=== PATIENT | female | born 1945 | race Caucasian/White ===

== ENCOUNTER → 2016-04-05 | Outpatient (CLI) | payer OTHER, BC ==
[~2016-04-05] MED LIST: ACYC1CAP8 PO; ALPR-411 PO; BACL10TA PO; CALC500C70 PO; CHOL20007 PO; CHOL20009 PO; CLBPO15 TOP; COLE1TAB5 PO; CYAN100020 PO; DETROL PO; DICY10CA55 PO; DPKSR250 PO; ESCI1TAB10 PO; FERR1TAB23 PO; FEXO5TAB2 PO; FLUO20CA35 PO; GABA800T PO; INSUINJ14 SC; INSUINJ4 SC; LISI5TAB3 PO; LOSA50TA6 PO; MYR25 PO; OMEP20CA9 PO; OXYB3.9D TD; POLY335019 PO; POTA10CA28 PO; PROBCAP PO; PROP20TA67 PO; PSYL0.524 PO; TAMO20TA47 PO; TRAZ50TA35 PO
--- NOTE | 2016-04-05 13:13 | MAMMOGRAPHY REPORT ---
UNILATERAL LEFT DIGITAL DIAGNOSTIC MAMMOGRAM TOMOSYNTHESIS WITH CAD AND TARGETED LEFT ULTRASOUND: 04/05/2016 CLINICAL HISTORY: 70-year-old woman whose doctor felt a lump in the left breast on physical exam. S he presents for diagnostic mammography and ultrasound. TECHNIQUE: Left breast tomosynthesis in addition to standard 2D mammography was performed. Current ginger barker was also evaluated with a Computer Aided Detection (CAD) system. COMPARISON: Comparison is made to exams dated: 12/29/2015 mammogram, 12/17/2013 mammogram, 12/24/19 15 mammogram, 12/11/2012 mammogram, 12/06/2011 mammogram, and 11/30/2010 mammogram - [facility]. BREAST COMPOSITION: There are scattered areas of fibroglandular density in the left breast. FINDINGS: A triangular skin palpable marker overlies the upper outer anterior left breast, denoting the palpable lump identified by the patient's physician. In the area of concern, there is a dense 2 .8 x 2.7 x 2.8 cm irregular mass with indistinct margins. There are associated pleomorphic microcal cifications. No definite focal skin thickening or evidence of nipple retraction. There are scatter ed and grouped benign-appearing calcifications elsewhere within the left breast. There was an a are a of focal asymmetry in a similar location in the upper outer anterior left breast on prior mammogra ms, and also another focal asymmetry in the upper outer posterior left breast. However, this area i s increasingly masslike and microcalcifications are new comparing to 2013. Targeted ultrasound was performed in the area of palpable lump identified by the patient's physician . In the 2:00 left breast, 2 cm from the nipple, there is an irregular and angular, taller than wid e hypoechoic solid vascular mass measuring approximately 20.8 x 19.3 x 23.0 mm. This correlates wit h the palpable finding and also with the mammographic mass. This is suspicious for malignancy and d efinitive characterization with tissue sampling is recommended. Additional ultrasound was performed in the left axilla. Several morphologically normal lymph nodes with thin cortices and prominent ec hogenic fatty richardson are identified. No suspicious lymphadenopathy is seen. IMPRESSION: ACR BI-RADS CATEGORY 5: HIGHLY SUGGESTIVE OF MALIGNANCY, TARGETED ULTRASOUND ACR BI-RAD S CATEGORY 5: HIGHLY SUGGESTIVE OF MALIGNANCY 1. Ultrasound guided core biopsy is recommended for a suspicious irregular approximately 2.5 cm hyp oechoic solid mass in the 2:00 left breast, which was palpated by the patient's physician. 2. Mammographically, there are associated pleomorphic microcalcifications within the mass. No othe r suspicious mass, architectural distortion or new suspicious clustered calcifications are seen in t he left breast. 3. No targeted sonographic evidence of suspicious left axillary lymphadenopathy. These results and recommendations were discussed with the patient at the time of the exam. She tenta tively scheduled the biopsy prior to leaving our department. Approximately 10% of breast cancers are not detected with mammography. A negative mammographic repor t should not delay biopsy if a clinically suggestive mass is present. Mica Zacarias M.D. ay/:04/05/2016 12:06:46 Wholesale Parts Salesperson: Kvng LOCK(R)(M), letter sent: Abnormal 4/5 BI-RADS Code: ACR BI-RADS Category 5: Highly Suggestive Of Malignancy Ultrasound BI-RADS: ACR BI-RA DS Category 5: Highly Suggestive Of Malignancy
== END | disposition home or self-care (01) ==
LOC: C.MAMM 11:17
PROVIDERS: ATTEND Obstetrics & Gynecology Gynecologic Oncology
DX: N63 Unspecified lump in breast (principal); R92.0 Mammographic microcalcification found on diagnostic imaging of breast

== ENCOUNTER → 2016-04-18 | Outpatient (CLI) | payer OTHER, BC ==
--- NOTE | 2016-04-18 13:08 | Discharge Instructions ---
Discharge Instructions Procedure Procedure Date: Apr 18, 2016. Reason for visit: Left Mass. Discharge Discharge Date: Apr 18, 2016. Discharge Diagnosis: status post breast biopsy Instructions Activity Recommendations: Additional Limitations (see below) Return to School/Work: no limitations Recommended Home Diet: No Limitations Provider Instructions: ACTIVITY RECOMMENDATIONS: * No lifting, pushing, pulling or exercising the affected side for three days. RETURN TO SCHOOL/WORK: * You may return to work/school after the procedure, but do not perform any strenuous activities for 24 to 48 hours. MEDICATIONS: * Tylenol (two 325 mg) every four to six hours if needed for mild pain (if not allergic to Tylenol). DIET: * Resume previous diet. SPECIAL CARE INSTRUCTIONS: * Keep biopsy site dry for 24 hours. May shower after 24 hours, but do not soak (bathe) incision. * May remove Tegaderm (plastic patch) tomorrow AFTER showering. * Leave the steri-strips on for one week. Allow the steri-strips to fall off by themselves. If not off after one week, you may remove them. You may place a Bandaid crosswise over the strips, if desired. * Apply ice 10 minutes on and 10 minutes off as needed. * Wear a bra at bedtime to sleep more comfortably for 2-3 days. * Your referring physician should have the results after approximately 5 to 7 business days. * Call for unusual bleeding, fever, drainage, etc or if you have any questions call during normal business hours or after hours call Dr Hernandez, . FOLLOW UP VISIT: Follow-up with Referring Physician as scheduled. Allergies Coded Allergies: Adhesives (Verified Allergy, Unknown, RED RASH, 02/10/13) Aminoglycosides (Verified Allergy, Unknown, RED RASH, 02/10/13) Bacitracin (Verified Allergy, Unknown, RED RASH, 02/10/13) Levofloxacin (Verified Allergy, Unknown, CHEST PAIN, 09/22/14) TABLETS Lisinopril (Unverified Allergy, Unknown, COUGH, 09/22/14) Neomycin (Verified Allergy, Unknown, RED RASH, 02/10/13) Polymyxin B (Verified Allergy, Unknown, RED RASH, 02/10/13) Quinapril (Verified Adverse Reaction, Mild, COUGH, 02/10/13) Elvis Bates Recommendations: Call your doctor if: * Temperature above 101 degrees * Pain not relieved by pain medicine ordered * There is increased drainage or redness from any incision * You have any unanswered questions or concerns. Your Doctors Instructions noted above were prepared by provider Dona Hernandez. Patient Signature Section: Patient Instructions Signature Page Triny Young Patient (or Guardian) Signature/Date: I have read and understand the instructions given to me by my caregivers. Caregiver/RN/Doctor Signature/Date: The above-named patient and/or guardian has received patient instructions on this date. + Original Patient Signature Page (only) stays with chart. Please make copy for patient.
--- NOTE | 2016-04-18 16:45 | MAMMOGRAPHY REPORT ---
UNILATERAL LEFT DIGITAL DIAGNOSTIC MAMMOGRAM: 04/18/2016 CLINICAL HISTORY: Status post ultrasound guided biopsy of the left 2 o'clock breast mass. TECHNIQUE: Postprocedural left CC and ML views were obtained. COMPARISON: Comparison is made to exams dated: 04/05/2016 mammogram, 12/29/2015 mammogram, 12/17/2013 mammogram, 12/23/2014 mammogram, 12/11/2012 mammogram, and 12/06/2011 mammogram - [facility]. BREAST COMPOSITION: There are scattered areas of fibroglandular density in the left breast. FINDINGS: A new biopsy marker clip is seen within the biopsied left 2:00 breast mass. No significa nt postbiopsy hematoma is seen. IMPRESSION: POST PROCEDURE IMAGING FOR MARKER PLACEMENT New biopsy marker clip status post ultrasound-guided biopsy of the left 2:00 breast mass. Pathology results are pending. Approximately 10% of breast cancers are not detected with mammography. A negative mammographic repor t should not delay biopsy if a clinically suggestive mass is present. Dona Hernandez M.D. ah/:04/18/2016 13:27:23 Cyanide Pot Tender: Kvng LOCK(R)(M), [facility] BI-RADS Code: Post Procedure Imaging For Marker Placement
--- NOTE | 2016-04-26 09:36 | MAMMOGRAPHY REPORT ---
ULTRASOUND GUIDED BIOPSY LEFT BREAST: 04/18/2016 CLINICAL HISTORY: Suspicious left 2:00 breast mass. PATIENT CONSENT: The procedure, risks and benefits were discussed with the patient and informed writ ten consent was obtained. A timeout was performed immediately prior to the procedure. PROCEDURE DESCRIPTION: With ultrasound guidance, aseptic technique, and lidocaine as the local anest hetic (1% lidocaine to anesthetize the skin and 1% lidocaine with epinephrine to anesthetize the igor per tissues), the mass of concern in the left 2 o'clock breast was sampled 4 times with a 14-gauge A chieve biopsy needle. Immediately thereafter, with ultrasound guidance, aseptic technique, and lido gypsy as the local anesthetic, a metallic localizer clip was placed centrally in the mass. Direct p ressure was applied to the site immediately post procedure and hemostasis was achieved. Postprocedu re unilateral mammograms were performed to confirm placement of the clip in the expected location of the breast mass. The patient tolerated the procedure without complication. She was given wound ca re instructions. The specimens were sent to pathology for analysis. COMPARISON: Comparison is made to exams dated: 04/05/2016 ultrasound, 12/29/2015 mammogram, 04/05/2016 mammogram, 12/23/2014 mammogram, 12/17/2013 mammogram, and 12/11/2012 mammogram - [facility]. IMPRESSION: ULTRASOUND GUIDED BIOPSY Ultrasound guided core needle biopsy of the suspicious left 2:00 breast mass, with clip placement. The patient will receive pathology results from her referring physician. Dona Hernandez M.D. ah/:04/18/2016 13:10:04 Air Quality Manager: Kvng LOCK(Lynette)(M), [facility]
== END | disposition home or self-care (01) ==
LOC: C.MAMM 12:29
PROVIDERS: ATTEND Obstetrics & Gynecology Gynecologic Oncology
DX: N63 Unspecified lump in breast (principal); C50.912 Malignant neoplasm of unspecified site of left female breast

== ENCOUNTER → 2016-05-22 | Day surgery (SDC) | payer OTHER, BC ==
[2016-05-15 12:12] VITALS: BMI 54.0
--- NOTE | 2016-05-15 12:58 | PAT Medication Instructions ---
Service Date May 15, 2016. Current Home Medication List Acyclovir (Zovirax), 200 MG PO UD PRN for COLD SORES Alprazolam (Xanax), 0.25 MG PO HS PRN for SLEEP/ANXIETY Cholecalciferol (Vitamin D3), 1 TAB PO QPM Clobetasol Propionate (Clobetasol Propionate), 1 APPLN TOP PRN Cyanocobalamin (Vitamin B12), 3,000 MCG PO QAM Dicyclomine Hcl (Bentyl), 10 MG PO QAM Ferrous Sulfate (Iron), 325 MG PO QAM Fexofenadine-Pseudoephedrine (Emmy-D 12 Hour Allergy), 1 TAB PO BID PRN for PRN Fluoxetine (Prozac), 20 MG PO BID Gabapentin (Neurontin), 800 MG PO QAM Insulin Aspart (Novolog Penfill), 25 UNITS SC TIDM Insulin Glargine (Lantus Solostar Pen), 65 UNITS SC HS Losartan Potassium (Cozaar), 50 MG PO BID Mirabegron (Myrbetriq Er), 25 MG PO QAM Omeprazole (Prilosec), 20 MG PO BID Polyethylene Glycol 3350 (Miralax), 17 GM PO Q2D Probiotic Product (ipDatatel), 1 CAP PO QAM Psyllium (Metamucil), 1 DOSE PO Q2D Trazodone Hcl (Trazodone), 50 MG PO HS [Detrol], 1 TAB PO HS Medication Instructions For Your Scheduled Surgery Acyclovir (Zovirax), 200 MG PO UD PRN for COLD SORES (not taking currently) - Hold the following medications 24 hours prior to surgery: Losartan Potassium (Cozaar), 50 MG PO BID (last dose will be in the morning on 05/21/16) Clobetasol Propionate (Clobetasol Propionate), 1 APPLN TOP PRN - Hold the following medications the morning of surgery: Probiotic Product (ipDatatel), 1 CAP PO QAM Psyllium (Metamucil), 1 DOSE PO Q2D Polyethylene Glycol 3350 (Miralax), 17 GM PO Q2D Mirabegron (Myrbetriq Er), 25 MG PO QAM Insulin Aspart (Novolog Penfill), 25 UNITS SC TIDM Fexofenadine-Pseudoephedrine (Emmy-D 12 Hour Allergy), 1 TAB PO BID PRN for PRN Ferrous Sulfate (Iron), 325 MG PO QAM Dicyclomine Hcl (Bentyl), 10 MG PO QAM Cyanocobalamin (Vitamin B12), 3,000 MCG PO QAM - Take the following medications the morning of surgery with a sip of water: Omeprazole (Prilosec), 20 MG PO BID Gabapentin (Neurontin), 800 MG PO QAM Fluoxetine (Prozac), 20 MG PO BID - Take the following medications as scheduled the night before surgery: Trazodone Hcl (Trazodone), 50 MG PO HS Detrol 1 TAB PO HS Omeprazole (Prilosec), 20 MG PO BID Insulin Glargine (Lantus Solostar Pen), 65 UNITS SC HS Fluoxetine (Prozac), 20 MG PO BID Fexofenadine-Pseudoephedrine (Emmy-D 12 Hour Allergy), 1 TAB PO BID PRN for PRN Alprazolam (Xanax), 0.25 MG PO HS PRN for SLEEP/ANXIETY Cholecalciferol (Vitamin D3), 1 TAB PO QPM If you have any questions please call us at [phone] or [phone] ( Es) or [phone]
[2016-05-15 14:23] LABS: BASO % 0.6 %; BASO ABS # 0.02 K/uL (0-0.2); COMPLETE YES; HEMATOCRIT 37.6 % (37-47); IG% 0.3 %; LYMPH % 30.1 %; LYMPH ABS # 1.09 K/uL (1.2-3.4); MEAN CELL VOLUME 91.5 fL (80-100); MEAN CORPUSCULAR HEMOGLOBIN 30.2 pg (25-34); MEAN PLATELET VOLUME 11.9 fL (7.4-10.4); MONO % 10.8 %; NEUT % 55.2 %; PLATELET COUNT 71 K/uL (130-400); PLT ESTIMATE DECREASED; RED BLOOD COUNT 4.11 M/uL (4.2-5.4); WHITE BLOOD COUNT 3.62 K/uL (4.8-10.8)
[~2016-05-22] VITALS: Ht 157.5 cm; Wt 133.2 kg
[~2016-05-22] MED LIST changes: +ATROPINE SULFATE 0.1 MG/ML 5ML SYR IV PRN; -BACL10TA PO; -CHOL20009 PO; -COLE1TAB5 PO; +DEXAMETHASONE SOD INJ 4 MG/ML VIAL ONE; -DPKSR250 PO; +FENTANYL CITRATE INJ 50 MCG/1 ML 2 ML VIAL IV PRN; +FENTANYL CITRATE INJ 50 MCG/1 ML 2 ML VIAL ONE; +GLYCOPYRROLATE INJ 0.2 MG/ML VIAL ONE; +ISOSULFAN BLUE 10 MG/ML VIAL 5 ML ONE; +KETOROLAC TROMETHAMINE 30 MG/ML VIAL IV. PRN; +LABETALOL HCL IV 5 MG/ML 20ML IV PRN; +LACTATED RINGER'S 1000ML 1,000 ML IV SCH; +LIDOCAINE HCL 1% 20 ML VIAL ONE; +LIDOCAINE HCL 2% 2 ML VIAL (20MG/ML) ONE; -LISI5TAB3 PO; +MIDAZOLAM HCL 1 MG/ML 2ML VIAL ONE; +MoRPHine SULFATE 4 MG/ML 1 ML CARP\\VIAL IV PRN; +NEOSTIGMINE METHYLSULFATE 5 MG/5 ML SYR ONE; +ONDANSETRON INJ 2 MG/ML 2 ML VIAL IV PRN; +ONDANSETRON INJ 2 MG/ML 2 ML VIAL ONE; +OXYCODONE/ACETAMINOPHEN 5-325 TAB PO PRN; -POTA10CA28 PO; +PROPOFOL IV EMULSION 10 MG/ML 20 ML VIAL IV ONE; +ROCURONIUM BROMIDE 10 MG/ML 5 ML VIAL ONE; +SODIUM CHLORIDE 0.9% 1000ML 1,000 ML IV SCH
--- NOTE | 2016-05-22 09:06 | History & Physical Bridge Note ---
H&P Re-Evaluation Bridge Note: I have examined the patient, reviewed the History & Physical and in the interval since the performance of the History & Physical I have noted the following changes of clinical significance: No changes noted
[2016-05-22 09:17] VITALS: BP 163/74; PULSE 90; TEMP 36.8; O2SAT 94; Ht 157.5 cm; Wt 133.2 kg
[2016-05-22 09:43] LABS: HEMATOCRIT 36.6 % (37-47); MEAN CELL VOLUME 92.7 fL (80-100); MEAN CORPUSCULAR HEMOGLOBIN 30.4 pg (25-34); RED BLOOD COUNT 3.95 M/uL (4.2-5.4); WHITE BLOOD COUNT 3.24 K/uL (4.8-10.8)
[2016-05-22 09:52] LABS: MEAN CORPUSCULAR HGB CONC 32.8 g/dl (32-36); PLATELET COUNT 60 K/uL (130-400)
--- NOTE | 2016-05-22 10:44 | DIAGNOSTIC IMAGING REPORT ---
Lymphoscintigraphy breast LYMPH SENTINEL NODE ID CLINICAL HISTORY: L BREAST CA breast carcinoma TECHNIQUE: Following description of the procedure, a sequential administration in a periareolar distribution was performed with a total of 0.5 mCi of technetium 99m lymphocele. COMPARISON STUDY: None FINDINGS: Successful periareolar injections IMPRESSION: Successful periareolar injections Electronically signed by: Srinivas Mccollum M.D. 05/22/2016 10:42 AM Dictated Date/Time: 05/22/2016 10:41 AM
[2016-05-22 10:46] LABS: BASO % 0.6 %; BASO ABS # 0.02 K/uL (0-0.2); COMPLETE YES; EOS % 2.5 %; LYMPH % 33.3 %; LYMPH ABS # 1.08 K/uL (1.2-3.4); MEAN PLATELET VOLUME 10.7 fL (7.4-10.4); MONO % 11.4 %; NEUT % 52.2 %
--- NOTE | 2016-05-22 13:54 | MAMMOGRAPHY REPORT ---
SPECIMEN: 05/22/2016 CLINICAL HISTORY: Lumpectomy specimen. Please refer to the report from left breast ultrasound-guided needle localization performed at the s flor time for full detail. IMPRESSION: SPECIMEN Please refer to the report from left breast ultrasound-guided needle localization performed at the s flor time for full detail. Mica Zacarias M.D. ay/:05/22/2016 10:46:42 Route Driver Coin Machines: Kvng LOCK(Lynette)(M), [facility]
--- NOTE | 2016-05-22 13:56 | MAMMOGRAPHY REPORT ---
UNILATERAL LEFT DIGITAL DIAGNOSTIC MAMMOGRAM TOMOSYNTHESIS: 05/22/2016 CLINICAL HISTORY: Biopsy-proven left breast cancer. Patient presents for preoperative needle and wi re localization. Please refer to report from left breast ultrasound-guided needle localization performed at the same time for full detail. IMPRESSION: Please refer to report from left breast ultrasound-guided needle localization performed at the same time for full detail. Approximately 10% of breast cancers are not detected with mammography. A negative mammographic repor t should not delay biopsy if a clinically suggestive mass is present. Mica Zacarias M.D. ay/:05/22/2016 12:29:36 Attending Technologist: Dr. Mica Zacarias, [facility] Medical Delivery Technician: Kvng Gold RT(R)(M), [facility] BI-RADS Code: n/a
--- NOTE | 2016-05-22 14:09 | [facility] Post Operative Brief Note ---
Immediate Operative Summary Operative Date May 22, 2016. Pre-Operative Diagnosis left breast cancer clinical stage T2N0M0 Post-Operative Diagnosis left breast cancer clinical stage T2N0M0 Procedure(s) Performed Needle localized left breast lumpectomy with left axillary sentinel lymph node biopsy Surgeon Dr Srinivas Ramon Booster Plant Operator Surgeon(s) Galilea Jarvis PA-C Estimated Blood Loss 15ML Findings See dictation Specimens C: left breast lumpectomy (white stitch-lateral, black stitch-anterior, blue stitch-inferior) Drains None Anesthesia General Complication(s) None Disposition Recovery Room / PACU
--- NOTE | 2016-05-22 14:13 | Discharge Instructions ---
Discharge Instructions Date of Service May 22, 2016. Admission Reason for Admission: Left Breast Ca--Hosp Loc--Lymph To Follow Discharge Discharge Diagnosis / Problem: Same Discharge Goals Goal(s): Improve disease control Activity Recommendations Activity Limitations: per Instructions/Follow-up section Lifting Limitations: no more than 10 pounds (with left arm) . Instructions / Follow-Up Instructions / Follow-Up MEDICATIONS: Resume previous medications unless instructed otherwise by your surgeon. * Percocet 5/325 mg one tablet every 4 hours as needed for pain. * Ibuprofen 600 mgm every 6 hours as needed for pain. SPECIAL CARE INSTRUCTIONS: * Wear bra day and night until seen in office. * Remove dressing on breast on . May then shower. * Let water run over steri strips and pat dry. * Leave steri strips on until seen in office. * Call the surgeon's office with any questions or concerns - (ex. temperature higher than 101 degrees F, excessive bleeding or pain). FOLLOW UP VISIT: If not already scheduled, please call the office for a follow-up appointment for next week at . Current Hospital Diet Patient's current hospital diet: Discharge Diet Recommended Diet: Diabetes Type 2 Diet Procedures Procedures Performed: Needle localized left breast lumpectomy with left axillary sentinel lymph node biopsy Pending Studies Studies pending at discharge: yes List of pending studies: Pathology Medical Emergencies . Who to Call and When: Medical Emergencies: If at any time you feel your situation is an emergency, please call 911 immediately. . Non-Emergent Contact Non-Emergency issues call your: Primary Care Provider, Surgeon Call Non-Emergent contact if: your pain is worsening, wound has increased redness, wound has increased pain . "Provider Documentation" section prepared by Srinivas Ramon. VTE Core Measure Inpt VTE Proph given/why not?: Treatment not indicated
--- NOTE | 2016-05-22 14:39 | Anesthesiology Progress Note ---
Anesthesia Post Op Note Date & Time May 22, 2016 at 14:39 Vital Signs Pain Intensity: 0 Vital Signs Past 12 Hours Date Time Temp Pulse Resp B/P Pulse Ox O2 Delivery O2 Flow Rate FiO2 05/22/16 14:30 92 18 133/60 94 Nasal Cannula 3 05/22/16 14:25 36.7 93 16 134/65 95 Nasal Cannula 3 05/22/16 14:15 94 16 132/65 97 Mask 5 05/22/16 14:05 94 16 134/61 98 Mask 10 05/22/16 13:55 36.8 99 16 163/74 97 Mask 10 05/22/16 09:17 36.8 90 24 163/74 94 Room Air Notes Mental Status: alert / awake / arousable, participated in evaluation Pt Amnestic to Procedure: Yes Nausea / Vomiting: adequately controlled Pain: adequately controlled Airway Patency, RR, SpO2: stable & adequate BP & HR: stable & adequate Hydration State: stable & adequate Anesthetic Complications: no major complications apparent
[2016-05-22 14:40] VITALS: BP 138/64; PULSE 94; TEMP 37.2; O2SAT 94
[2016-05-22 15:10] VITALS: BP 143/69; PULSE 90; O2SAT 92
[2016-05-22 15:40] VITALS: BP 118/56; PULSE 86; TEMP 37; O2SAT 94
--- NOTE | 2016-05-22 16:38 | MAMMOGRAPHY REPORT ---
NEEDLE LOCALIZATION LEFT BREAST: 05/22/2016 CLINICAL HISTORY: 70-year-old woman with biopsy-proven left breast cancer. She presents for preoper ative needle and wire localization. COMPARISON: Comparison is made to exams dated: 04/18/2016 mammogram, 04/05/2016 mammogram, 12/29/2015 mammogram - [facility], 11/14/2007, 11/17/2008, and 11/24/2009 mammogram - [facility]. PATIENT CONSENT: The risks of the procedure were explained to the patient and informed consent was o btained. The patient denied allergy to lidocaine and also denied eating or drinking anything this m orning that would preclude anesthesia. A timeout was performed in the left breast was agreed as the site for preoperative localization. Th en repeat targeted ultrasound was performed in the 2:00 left breast to reevaluate the biopsy proven cancer. The irregular hypoechoic solid mass is again seen and the ribbon-shaped metallic biopsy mar ker is seen within, which is the target for preoperative localization. The skin of the left breast was cleansed with Betadine. 1% buffered lidocaine without epinephrine was administered as local ane sthesia. A 7.5 cm Michel II needle and wire combination was inserted into the breast via lateral a pproach. Once the needle traversed the mass the wire was locked in place and postprocedure left CC and ML 2-D digital and tomosynthesis images were obtained. The postprocedure images demonstrate the localizing needle and wire distal to the intended mass and biopsy marker clip. Therefore using ultrasound guidance the needle was repositioned and withdrawn s lightly and then locked in place again. A final postprocedure left CC image was obtained that demon strates the heel of the ranulfo immediately adjacent to the ribbon-shaped biopsy marker clip with the t ip of the needle at the distal/medial margin of the mass. This position was felt to be satisfactory and the patient was transferred to the operating room in satisfactory condition. The procedure inc luding needle length and approach were discussed with the operating surgeon prior to surgery. The lumpectomy specimen demonstrates a portion of the localizing needle and wire combination. Also identified is a central mass with indistinct and spiculated borders as well as clustered pleomorphic microcalcification. These findings are compatible with successful preoperative localization and mcpherson bsequent surgical excision. Final pathology is pending. IMPRESSION: NEEDLE LOCALIZATION Status post preoperative needle and wire localization for biopsy-proven left breast cancer in the 2: 00 axis. The imaged specimen includes the intended abnormalities. Final pathology is pending. Mica Zacarias M.D. ay/:05/22/2016 15:22:17 Oil Seal Assembler: Kvng LOCK(Lynette)([place]), [facility]
--- NOTE | 2016-05-22 18:38 | OPERATIVE REPORT ---
DATE OF OPERATION: 05/22/2016 PREOPERATIVE DIAGNOSIS: Carcinoma of the left breast. POSTOPERATIVE DIAGNOSIS: Same. PROCEDURE: Needle guided lumpectomy of the left breast with left axillary sentinel lymph node biopsy. SURGEON: Srinivas Ramon MD CONCRETE ENGINEERING TECHNICIAN: Mone Paula PA-C FINDINGS: The patient had 1 sentinel lymph node that was identified. There was 1 nonsentinel lymph node also identified. The sentinel lymph node had an en vivo count of 8 and ex vivo count of 35. Baseline counts were no higher than 3 with consistency. The needle was placed through the center of the lesion. The lesion was never seen. There appeared to be good margins both grossly and radiologically on tissue mammogram. The specimen was marked with a white stitch on the lateral side, a black stitch anteriorly and a blue stitch inferiorly. TECHNIQUE: The patient was initially taken to radiology where the needle localization was performed. A nuclear medicine then injected the radio nucleotide. She was then brought to the operating room and placed on the operating table, given a general anesthetic. The skin in the periareolar area was cleansed with alcohol and then intradermal injection of blue dye was placed. The area was then prepped and draped in the usual sterile fashion. The external counts were only 8 but they were consistent in one area at the inferior aspect of the hairline. Incision was then made under the axilla in that area, carried down through the subcutaneous tissue to the external fascia which was opened and the Neoprobe was then used to identify the sentinel node. In dissecting deep in order to get to that lymph node, the nonsentinel lymph node was identified. It was using the LigaSure. Once I was able to identify the sentinel lymph node, it was from the surrounding tissues using the Neoprobe. External counts were 35. The Neoprobe was replaced and there were no consistent baseline counts higher than 3. There was some bleeding from an exposed vessel that was clamped and ligated with 3-0 Vicryl ties. There was no further bleeding. The wound was irrigated and irrigation removed. The deep tissues were approximated using interrupted 2-0 Vicryl. The superficial subcutaneous tissue was closed with running 3-0 Vicryl and skin was closed with 4-0 Monocryl in a running subcuticular fashion. Attention was then turned to the lumpectomy. The course of the needle and the tip of the needle was marked on the skin. The skin incision was then marked. Skin incision was made, carried down through the subcutaneous tissue. Inferomedial medial and superolateral flaps were then created. This was done to have at least a centimeter margin on each side. Dissection of the flaps was then carried medially so that I was at least a centimeter around the tip of the needle, which by radiology was right at the medial margin of the lesion. I then carried the superficial dissection laterally, identified the entrance site of the needle, and then cut the needle removing the external portion. I then worked from anterior to posterior beginning on the inferior side working on the medial side, then on the superior side. Then making sure to keep a margin of normal tissue around what then was a palpable lesion. The lateral dissection was then carried out. I then amputated the specimen deeply. It was marked as stated above. It was sent for tissue mammogram with findings to show that the lesion appeared to be within the center of the specimen. The wound was irrigated and irrigation was removed. The area was inspected for bleeding and none was seen. The deep tissues were approximated with interrupted 2-0 Vicryl. The deep subcutaneous tissue was closed with running 2-0 Vicryl. The superficial subcutaneous tissue was closed with running 3-0 Vicryl and skin was closed with 4-0 Monocryl in a running subcuticular fashion. The skin of each of the incisions was anesthetized with 0.5% Marcaine. The skin was cleansed, dried, benzoin placed, Steri-Strips applied. Estimated blood loss was 15 mL. Sponge, needle, and instrument counts were correct prior to closure. The patient tolerated the surgical procedure without complication and was transferred to recovery. I attest to the content of the Intraoperative Record and any orders documented therein. Any exceptio ns are noted below.
== END | disposition home or self-care (01) ==
LOC: C.ACU 07:34
PROVIDERS: ATTEND Surgery
DX: C50.412 Malignant neoplasm of upper-outer quadrant of left female breast (principal); F32.9 Major depressive disorder, single episode, unspecified; E11.9 Type 2 diabetes mellitus without complications; I10 Essential (primary) hypertension; Z85.42 Personal history of malignant neoplasm of other parts of uterus

== ENCOUNTER → 2016-06-26 | Outpatient (CLI) | payer OTHER, BC ==
[~2016-06-26] MED LIST changes: +ACYC-57 PO; -ACYC1CAP8 PO; -ATROPINE SULFATE 0.1 MG/ML 5ML SYR IV PRN; -DETROL PO; -DEXAMETHASONE SOD INJ 4 MG/ML VIAL ONE; +ESCI10TA17 PO; -FENTANYL CITRATE INJ 50 MCG/1 ML 2 ML VIAL IV PRN; -FENTANYL CITRATE INJ 50 MCG/1 ML 2 ML VIAL ONE; -GLYCOPYRROLATE INJ 0.2 MG/ML VIAL ONE; +INSDGIPEN SC; -ISOSULFAN BLUE 10 MG/ML VIAL 5 ML ONE; -KETOROLAC TROMETHAMINE 30 MG/ML VIAL IV. PRN; -LABETALOL HCL IV 5 MG/ML 20ML IV PRN; -LACTATED RINGER'S 1000ML 1,000 ML IV SCH; -LIDOCAINE HCL 1% 20 ML VIAL ONE; -LIDOCAINE HCL 2% 2 ML VIAL (20MG/ML) ONE; -MIDAZOLAM HCL 1 MG/ML 2ML VIAL ONE; -MoRPHine SULFATE 4 MG/ML 1 ML CARP\\VIAL IV PRN; -NEOSTIGMINE METHYLSULFATE 5 MG/5 ML SYR ONE; +NVLGIPEN SC; -ONDANSETRON INJ 2 MG/ML 2 ML VIAL IV PRN; -ONDANSETRON INJ 2 MG/ML 2 ML VIAL ONE; -OXYCODONE/ACETAMINOPHEN 5-325 TAB PO PRN; +PROP10TA7 PO; -PROPOFOL IV EMULSION 10 MG/ML 20 ML VIAL IV ONE; -ROCURONIUM BROMIDE 10 MG/ML 5 ML VIAL ONE; -SODIUM CHLORIDE 0.9% 1000ML 1,000 ML IV SCH; +TAMO10TA25 PO; -TAMO20TA47 PO; +TAMO20TA9 PO
[2016-06-26 12:36] LABS: HEMATOCRIT 39.2 % (37-47); MEAN CELL VOLUME 95.6 fL (80-100); MEAN CORPUSCULAR HGB CONC 32.4 g/dl (32-36); MEAN PLATELET VOLUME 12.6 fL (7.4-10.4); PLATELET COUNT 71 K/uL (130-400); WHITE BLOOD COUNT 3.18 K/uL (4.8-10.8)
[2016-06-26 12:44] LABS: BASO % 0.9 %; BASO ABS # 0.03 K/uL (0-0.2); COMPLETE YES; EOS % 3.8 %; LYMPH % 30.5 %; LYMPH ABS # 0.97 K/uL (1.2-3.4); MONO % 10.7 %; NEUT % 54.1 %; PLT ESTIMATE DECREASED
[2016-06-26 12:49] LABS: ESTIMATED AVERAGE GLUCOSE 146 mg/dl; HA1C FLAG Normal (Normal)
[2016-06-26 12:51] LABS: BLOOD UREA NITROGEN 9 mg/dl (7-18); GLUCOSE 102 mg/dl (70-99)
[2016-06-26 12:52] LABS: ALT/SGPT 31 U/L (12-78); BUN/CREATININE RATIO 14.3 (10-20); CARBON DIOXIDE 30 mmol/L (21-32); CHLORIDE 108 mmol/L (98-107); CHOLESTEROL 130 mg/dl (0-200); POTASSIUM 3.7 mmol/L (3.5-5.1); SODIUM 145 mmol/L (136-145); TRIGLYCERIDES 89 mg/dl (0-150); VERY LOW DENSITY LIPOPROT CALC 18 mg/dl
[2016-06-26 12:54] LABS: ALB/GLOB RATIO 0.8 (0.9-2); ALKALINE PHOSPHATASE 150 U/L (45-117); AST/SGOT 47 U/L (15-37); CHOLESTEROL/HDL RATIO 1.9; HDL CHOLESTEROL 67 mg/dl; LDL CHOLESTEROL CALCULATED 45 mg/dl
== END | disposition home or self-care (01) ==
LOC: C.LABPVFM 09:16
PROVIDERS: ATTEND Family Medicine
DX: C50.919 Malignant neoplasm of unspecified site of unspecified female breast (principal); F32.9 Major depressive disorder, single episode, unspecified; I10 Essential (primary) hypertension; G47.00 Insomnia, unspecified; E11.49 Type 2 diabetes mellitus with other diabetic neurological complication; E11.65 Type 2 diabetes mellitus with hyperglycemia

== ENCOUNTER → 2016-06-30 | Outpatient (CLI) | payer OTHER, BC ==
--- NOTE | 2016-06-30 11:43 | DIAGNOSTIC IMAGING REPORT ---
L-SPINE MIN 4 VIEWS ROUTINE CLINICAL HISTORY: LOW BACK PAIN COMPARISON STUDY: 11/05/2012 FINDINGS: There is a mild lumbar levoscoliosis. There is no pathologic bowel dilatation. There are surgical clips in the right upper quadrant consistent with a prior cholecystectomy. No acute fractures are visualized. There are multilevel degenerative changes with prominent anterior osteophytes within the lower thoracic spine and thoracolumbar junction. No destructive lesions are visualized on conventional radiographic imaging. IMPRESSION: Multilevel degenerative change. No fractures or traumatic subluxations are visualized. Electronically signed by: Rj Mcarthur M.D. 06/30/2016 11:42 AM Dictated Date/Time: 06/30/2016 11:40 AM
== END | disposition home or self-care (01) ==
LOC: C.RADPV 11:22
PROVIDERS: ATTEND Family Medicine
DX: M54.5 Low back pain (principal)

== ENCOUNTER → 2016-07-28 | Day surgery (SDC) | payer OTHER, BC ==
[2016-07-19 10:31] VITALS: BMI 53.0
[~2016-07-28] VITALS: Ht 157.5 cm; Wt 131.8 kg
[~2016-07-28] MED LIST changes: -CHOL20007 PO; +LIDOCAINE HCL 2% 2 ML VIAL (20MG/ML) ONE; +PROPOFOL IV EMULSION 10 MG/ML 20 ML VIAL IV ONE; +SODIUM CHLORIDE 0.9% 500ML 500 ML IV ONE
[2016-07-28 08:15] VITALS: Ht 157.5 cm; Wt 131.8 kg
--- NOTE | 2016-07-28 09:09 | Endo History and Physical ---
History & Physical Date of Service: July 28, 2016. Chief Complaint: CIRRHOSIS Referring Physician: DR. GAN History of Present Illness Cirrhosis, EGD Past Medical History Diabetes, Fractures, Reflux, Cancer, Hypertension, Depression Past Surgical History Hx Cardiac Surgery: No Hx Internal Defibrillator: No Hx Pacemaker: No Hx Abdominal Surgery: Yes ([facility]) Hx Post-Op Nausea and Vomiting: No Hx Cancer Surgery: No ([facility] BSO, LEFT BREAST LUMPECTOMY W/ SENTINAL NODE DISSECTION) Hx Thoracic Surgery: No Hx Orthopedic: Yes (BILATERAL ARM TENDONCYSTITIS SURGERY, L ARM SPUR REMOVAL, L THUMB SURG) Hx Urinary Tract Surgery: No Family History Polyp Social History Smoking Status: Never Smoker Hx Substance Use: No Hx Alcohol Use: No Allergies Coded Allergies: QUINCY Inhibitors (Verified Allergy, Severe, caugh, 07/28/16) Adhesives (Verified Allergy, Intermediate, rash, 07/28/16) Aminoglycosides (Verified Allergy, Intermediate, rash, 07/28/16) Bacitracin (Verified Allergy, Intermediate, rash, 07/28/16) Levofloxacin (Verified Allergy, Unknown, CHEST PAIN, 07/28/16) TABLETS Neomycin (Verified Allergy, Unknown, RED RASH, 07/28/16) Current Medications Reported Home Medications Medications Dose Route/Sig Max Daily Dose Days Date Category Dose Instructions Os-Molina 500 Plus D (Calcium/Vitamin D) Tab 2 Tab PO DAILY 06/22/16 Reported TAKES WITH LARGEST MEAL OF DAY Cozaar (Losartan Potassium) 50 Mg Tab 50 Mg PO BID 05/15/16 Reported Trazodone (Trazodone HCl) 50 Mg Tab 50 Mg PO HS 05/15/16 Reported Myrbetriq Er (Mirabegron) 25 Mg Tab 25 Mg PO QAM 05/15/16 Reported Metamucil (Psyllium) 0.52 Gm Cap 1 Dose PO Q2D 05/15/16 Reported AM Miralax (Polyethylene Glycol 3350) 1 Pow Pow 17 Gm PO Q2D 05/15/16 Reported AM Iron (Ferrous Sulfate) 325 Mg Tab 325 Mg PO QAM 05/15/16 Reported Clobetasol Propionate 45 Appln/15 Gm Oint 1 Appln TOP PRN 30 05/15/16 Reported Emmy-D 12 Hour Allergy (Fexofenadine-Pseudoephedrine) 1 Tab Tab 1 Tab PO BID PRN 10 05/15/16 Reported Vitamin B12 (Cyanocobalamin) 1,000 Mcg Tab 2,000 Mcg PO QAM 09/22/14 Reported Bentyl (Dicyclomine Hcl) 10 Mg Cap 10 Mg PO QAM PRN 09/22/14 Reported [employer] (Probiotic Product) 1 Cap Cap 1 Cap PO QAM 02/10/13 Reported Prilosec (Omeprazole) 20 Mg Cap 20 Mg PO BID 02/10/13 Reported Novolog Penfill (Insulin Aspart) 100 Unit/ Inj 25 Units SC TIDM 02/10/13 Reported Lantus Solostar Pen (Insulin Glargine) 100 Unit/ Inj 65 Units SC HS 02/10/13 Reported Xanax (Alprazolam) 0.5 Mg Tab 0.25 Mg PO HS PRN 02/10/13 Reported Zovirax (Acyclovir) 200 Mg Cap 200 Mg PO UD PRN 02/10/13 Reported Prozac (Fluoxetine HCl) 20 Mg Cap 20 Mg PO BID 02/10/13 Reported Neurontin (Gabapentin) 800 Mg Tab 800 Mg PO QAM 08/05/08 Reported Vital Signs Weight (Kilograms): 131.82 Height (Feet): 5 Height (Inches): 2 Date Time Temp Pulse Resp B/P Pulse Ox O2 Delivery O2 Flow Rate FiO2 07/28/16 08:33 36.5 83 20 145/87 97 Room Air Physical Exam General Appearance: no apparent distress Respiratory/Chest: Auscultation: breath sounds normal Cardiovascular: Heart Auscultation: RRR Abdomen: Bowel Sounds: normal Assessment and Plan Cirrhosis - EGD variceal screen
--- NOTE | 2016-07-28 09:29 | GI REPORT ---
Procedure Date: 07/28/2016 9:10 AM Procedure: Upper GI endoscopy Indications: Cirrhosis rule out esophageal varices Medicines: See the Anesthesia note for documentation of the administered medications Complications: No immediate complications. Estimated Blood Loss: Estimated blood loss: none. Procedure: Pre-Anesthesia Assessment: - ASA Grade Assessment: III - A patient with severe systemic disease. After obtaining informed consent, the endoscope was passed under direct vision. Throughout the procedure, the patient's blood pressure, pulse, and oxygen saturations were monitored continuously. The scope was introduced through the mouth, and advanced to the second part of duodenum. The upper GI endoscopy was accomplished without difficulty. The patient tolerated the procedure well. Findings: The GE junction was at 40 cm. Two columns of grade II varices were found at the gastroesophageal junction,. No stigmata of recent bleeding were evident and no red kierra signs were present. Moderate portal hypertensive gastropathy was found in the cardia, in the gastric fundus and in the gastric body with mild oozing. There were stripes of erythema and erosions in the antrum, suggestive of GAVE. The duodenum was normal. Impression: - Non-bleeding grade II esophageal varices. - Portal hypertensive gastropathy. - Mild antral GAVE. Recommendation: - Discharge patient to home. Consider initiation of beta ned. Cyndee Jara M.D. Cyndee Jara MD 07/28/2016 9:30:01 AM This report has been signed electronically. Note Initiated On: 07/28/2016 9:10 AM I attest to the content of the Intraoperative Record and orders documented therein, exceptions below
--- NOTE | 2016-07-28 09:30 | Discharge Instructions ---
Endoscopy Patient Instructions Date / Procedure(s) Performed July 28, 2016. EGD Allergy Information Coded Allergies: QUINCY Inhibitors (Verified Allergy, Severe, caugh, 07/28/16) Adhesives (Verified Allergy, Intermediate, rash, 07/28/16) Aminoglycosides (Verified Allergy, Intermediate, rash, 07/28/16) Bacitracin (Verified Allergy, Intermediate, rash, 07/28/16) Levofloxacin (Verified Allergy, Unknown, CHEST PAIN, 07/28/16) TABLETS Neomycin (Verified Allergy, Unknown, RED RASH, 07/28/16) Discharge Date / Findings July 28, 2016. Small varices; portal gastropathy; mild GAVE Medication Instructions Stopped Medication(s): TAKE BP MEDICATION Provider Instructions Activity Restrictions - No exercising or heavy lifting for 24 hours. - Do not drink alcohol the day of the procedure. - Do not drive a car or operate machinery until the day after the procedure. - Do not make any important decisions or sign important papers in 24 hours after the procedure. Following Day: - Return to full activity which may include returning to work/school. Diet Start your diet with liquids and light foods (jello, soup, juice, toast). Then eat your usual diet if not nauseated. Treatment For Common After Affects For mild abdominal pain, bloating, or excessive gas: - Rest - Eat lightly - Lie on right side Follow-Up Information Follow-up with DR. GAN as scheduled Anesthesia Information What You Should Know You have had a procedure that required some medicine to reduce anxiety and discomfort. This treatment is called moderate sedation. After receiving the treatment, you may be sleepy, but you will be able to breathe on your own. The effects of the treatment may last for several hours. Follow these instructions along with Activity/Diet recommendations noted above: * Do NOT do anything where dizziness or clumsiness would be dangerous. * Rest quietly at home today, then you can be up and about tomorrow. * Have a responsible person stay with you the rest of today. * You may have had an I.V. today. If so, you may take the dressing off later today. Recommendations Call your doctor if: * Trouble breathing * Continuous vomiting for more than 24 hours * Temperature above 101 degrees * Severe abdominal pain or bloating * Pain not relieved by pain medicine ordered * There is increased drainage or redness from any incision * A large amount of rectal bleeding greater than 2-3 tablespoons. (If you had a polyp/s removed or have hemorrhoids, a small amount of blood - from the rectum is to be expected.) * You have any unanswered questions or concerns. IN THE EVENT OF A SERIOUS EMERGENCY, GO TO THE NEAREST EMERGENCY ROOM Your discharge instructions were prepared by provider Cyndee Jackson. Patient Instructions Signature Page Triny Hebert Patient (or Guardian) Signature/Date: I have read and understand the instructions given to me by my caregivers. Caregiver/RN/Doctor Signature/Date: The above-named patient and/or guardian has received patient instructions on this date. + Original Patient Signature Page (only) stays with chart. Please make copy for patient.
--- NOTE | 2016-07-28 09:45 | Anesthesiology Progress Note ---
Anesthesia Post Op Note Date & Time July 28, 2016 at 09:45 Vital Signs Pain Intensity: 0 Vital Signs Past 12 Hours Date Time Temp Pulse Resp B/P Pulse Ox O2 Delivery O2 Flow Rate FiO2 07/28/16 09:27 85 20 97/68 96 Room Air 07/28/16 08:33 36.5 83 20 145/87 97 Room Air Notes Mental Status: alert / awake / arousable, participated in evaluation Pt Amnestic to Procedure: Yes Nausea / Vomiting: adequately controlled Pain: adequately controlled Airway Patency, RR, SpO2: stable & adequate BP & HR: stable & adequate Hydration State: stable & adequate Anesthetic Complications: no major complications apparent
[2016-07-28 09:50] VITALS: BP 128/69; PULSE 77; O2SAT 97
== END | disposition home or self-care (01) ==
LOC: C.GI 08:03
PROVIDERS: ATTEND Internal Medicine Gastroenterology
DX: I85.10 Secondary esophageal varices without bleeding (principal); K31.89 Other diseases of stomach and duodenum; K74.60 Unspecified cirrhosis of liver; E11.9 Type 2 diabetes mellitus without complications; K21.9 Gastro-esophageal reflux disease without esophagitis; I10 Essential (primary) hypertension; F32.9 Major depressive disorder, single episode, unspecified; Z79.4 Long term (current) use of insulin; Z79.899 Other long term (current) drug therapy

== ENCOUNTER → 2016-07-28 | Outpatient (CLI) | payer OTHER, BC ==
[~2016-07-28] MED LIST changes: -LIDOCAINE HCL 2% 2 ML VIAL (20MG/ML) ONE; +OPTIRAY 320 IV PRN; -PROPOFOL IV EMULSION 10 MG/ML 20 ML VIAL IV ONE; -SODIUM CHLORIDE 0.9% 500ML 500 ML IV ONE
--- NOTE | 2016-07-28 11:07 | DIAGNOSTIC IMAGING REPORT ---
CT SCAN OF THE ABDOMEN COMBO LIVER PROTOCOL CLINICAL HISTORY: Cirrhosis. Reported history of abnormal liver ultrasound. COMPARISON STUDY: Abdominal CT dated 08/23/2015 and 01/09/2014. TECHNIQUE: Before and following the IV administration of 92 cc of Optiray 320, CT scan of the abdomen there is performed from the lung bases to the pelvic inlet utilizing the liver protocol. Images are reviewed in the axial, sagittal, and coronal planes. IV contrast was administered without complication. Automated dose control exposure was utilized. CT DOSE: 4477.46 mGy.cm FINDINGS: Lung bases: The heart is mildly enlarged and without pericardial effusion. There are coronary artery calcifications. There is segmental atelectasis at the right lung base. No airspace consolidation is seen typical for pneumonia and there is no pleural effusion. Nodularity at the right lung base seen on image #33 an measuring up to 8 mm is similar in appearance to studies dating back to 2013 and of doubtful significance. There is a tiny hiatal hernia. Liver: The contrast-enhanced liver is cirrhotic in morphology and heterogeneous in attenuation with diffuse nodularity suggested. There is nodularity of the hepatic surface contour and hypertrophy of the caudate lobe. There is no intrahepatic biliary ductal dilatation. There is a 2.3 cm arterially hypervascular lesion seen at the junction of segments VII and VIII on axial image #68 of the arterial phase series. There may be an additional 1.2 cm arterially hypervascular lesion in segment VIII seen on arterial phase image #54. These did not clearly show washout on the delayed sequences. There are additional nodular foci of washout seen in segment VII measuring 11 mm as seen on extended delayed image #42 and measuring 12 mm in segment II on image #65. There is no corresponding arterial hypervascularity in these lesions. Hepatic and portal vasculature: Hepatic arterial anatomy is conventional. The hepatic veins, portal veins, superior mesenteric vein, and splenic vein are patent. There are small esophageal varices as well as perigastric varices. Omental collateral vessels are identified. Gallbladder: Surgically absent noting clips in the gallbladder fossa. Spleen: The spleen is enlarged measuring 18.7 cm in length. Pancreas: Atrophic and grossly unremarkable. Adrenal glands: Unremarkable. Kidneys: No renal calculi are identified on the unenhanced series. The contrast enhanced kidneys demonstrate cortical atrophy and are without hydronephrosis. The kidneys enhance and excrete symmetrically. A 1.5 cm cyst in lower pole of left kidney has not significant changed from 01/09/2014. Abdominal vasculature: The abdominal aorta is normal in course and caliber noting mild atherosclerotic calcification. Bowel: Visualized portions of the small bowel and colon are normal in course and caliber. A duodenal diverticulum is incidentally noted. The appendix is normal as visualized. Peritoneum: There is no intraperitoneal free air or abdominal ascites. Lymphadenopathy: A mildly enlarged right cardiophrenic lymph node measures up to 10 mm short axis as seen on image #48. This has only minimally increased in size from 08/23/2015. Mildly enlarged lymph nodes in the renetta hepatis and portacaval region are likely related to cirrhosis and chronic liver disease. Skeletal structures: The skeletal structures are osteopenic. There is mild lumbosacral spondylosis. No lytic or blastic lesions are seen. IMPRESSION: 1. Cirrhotic liver morphology with diffuse nodularity/heterogeneity and evidence of portal hypertension including splenomegaly, esophageal varices, and omental collaterals. 2. There is a 2.3 cm arterially hypervascular lesion in the right lobe seen at the junction of segments VII and VIII. This was not seen on the 08/23/2015 examination and is highly concerning for hepatocellular carcinoma in the setting of cirrhosis. Correlation with serum AFP levels is recommended. 3. An additional additional 1.2 cm hypervascular lesion is questioned in the right lobe, and there are at least 2 additional nodular foci of delayed washout without corresponding arterial hypervascularity. These are indeterminant and may represent multifocal disease. 4. There are no findings to suggest intra-abdominal metastatic disease. 5. Cardiomegaly. 6. Additional changes as above. Electronically signed by: Paulo Pan M.D. 07/28/2016 11:06 AM Dictated Date/Time: 07/28/2016 10:44 AM
== END | disposition home or self-care (01) ==
LOC: C.CTS 08:01
PROVIDERS: ATTEND Internal Medicine Gastroenterology
DX: R93.2 Abnormal findings on diagnostic imaging of liver and biliary tract (principal)

== ENCOUNTER → 2016-08-11 | Outpatient (CLI) | payer OTHER, BC ==
[~2016-08-11] MED LIST changes: +GADOXETATE DISODIUM (NON-WT BASED PROCEDURE) IV PRN; -OPTIRAY 320 IV PRN
--- NOTE | 2016-08-12 07:46 | DIAGNOSTIC IMAGING REPORT ---
MRI OF THE ABDOMEN WITH AND WITHOUT CONTRAST LIVER PROTOCOL CLINICAL HISTORY: Cirrhosis. History of breast and endometrial cancer. COMPARISON STUDY: CT of the abdomen July 28, 2016. TECHNIQUE: Utilizing a 1.5 Abigail magnet and dedicated coil, multiplanar, multiecho imaging of the abdomen was performed pre and postcontrast administration. Post contrast imaging was performed utilizing dynamic enhancement following intravenous injection of 10 cc of Eovist. 20 minute delayed phase imaging was performed. FINDINGS: This exam is significantly compromised due to artifact related to body habitus and inability to suspend respiration. Marked nodularity of the liver with enlargement of the caudate lobe and lateral segment is consistent with cirrhosis. No biliary ductal dilatation. A 1.9 cm hypervascular segment 7/8 hepatic lesion corresponds the lesion shown on exam of July 28, 2016. This focus is not evident on the remainder of the pulsing sequences. Specifically, there is no definite evidence for washout on the more delayed phases. The additional hepatic abnormality shown on prior CT are not evident on this exam, possibly due to artifact. Moderate splenomegaly is again noted. Upper abdominal collaterals are noted. There are trace bilateral pleural effusions. A few renal cysts are present. There is no pancreatic ductal dilatation. Major hepatic vessels are patent. A few low-attenuation renal lesions are suboptimally assessed on this exam but may reflect cysts. IMPRESSION: 1. Exam significantly compromised by artifact, as described above. 2. Redemonstration of a 2 cm hypervascular segment 7/8 focus as shown on prior CT of July 28, 2016. This remains concerning for hepatocellular carcinoma although definitive washout is not identified on this exam, possibly due to artifact. The additional hepatic abnormality shown on prior CT are not evident on this exam. 2. Cirrhosis with manifestations of portal hypertension including splenomegaly and varices formation. Electronically signed by: Ethan Davis M.D. 08/12/2016 7:44 AM Dictated Date/Time: 08/11/2016 2:48 PM
== END | disposition home or self-care (01) ==
LOC: C.MRI 12:22
PROVIDERS: ATTEND Internal Medicine Gastroenterology
DX: K74.60 Unspecified cirrhosis of liver (principal)

== ENCOUNTER → 2016-09-07 | Outpatient (CLI) | payer OTHER, BC ==
[~2016-09-07] MED LIST changes: -ACYC-57 PO; +ACYC1CAP8 PO; -ESCI10TA17 PO; -GADOXETATE DISODIUM (NON-WT BASED PROCEDURE) IV PRN; -INSDGIPEN SC; -NVLGIPEN SC; -PROP10TA7 PO; -TAMO10TA25 PO; +TAMO20TA47 PO; -TAMO20TA9 PO
[2016-09-07 14:07] VITALS: BP 111/55; PULSE 57; TEMP 37; O2SAT 97
--- NOTE | 2016-09-07 15:20 | Radiation Oncology Follow-Up ---
Radiation Oncology Follow-Up Date of Visit Sep 07, 2016. (Manda Akers PA-C) Reason For Visit One-month follow-up and cancer survivorship care plan (Manda Akers PA-C) Radiation Completion Date finished 08-09-2016 (Manda Akers PA-C) Diagnosis (1) Breast cancer Status: Acute Onset Date: 04/18/2016 Histology Subtype: ductal Stage: ll (A) Permanent Comment: Self detected left breast mass Status post core needle biopsy 04/18/2016 revealing invasive ductal carcinoma grade 3 Estrogen receptor positive, progesterone receptor positive, HER-2/lakhwinder negative Status post lumpectomy and sentinel lymph node biopsy 05/22/2016 Stage pT2 pN0 M0 G3 Status post completion of radiation therapy 08/09/2016. She received 5130 cGy utilizing hypo-fractionation. Last Edited By: Manda Akers on Sep 07, 2016 15:11 (Manda Akers PA-C) History of Present Illness Ms. Hebert is a 71-year-old female who recently presented with a palpable left breast mass. She did have a screening mammogram in December 2015 which did not reveal any evidence of malignancy in either breast. After she did note a palpable left breast mass she did have a targeted left digital diagnostic mammogram and ultrasonography on on 04/05/2016 which confirmed a irregular mass measuring 2.5 cm in the left breast in the 2 o'clock position that was described as hypoechoic by ultrasound; there was no evidence of lymphadenopathy. The patient underwent a targeted ultrasound guided biopsy of the left breast on 04/18/2016 which revealed invasive ductal carcinoma that was grade 2 with no evidence of lymphovascular space invasion; the tumor was estrogen receptor positive, progesterone receptor negative and HER-2 negative. The patient underwent a lumpectomy and sentinel lymph node biopsy on 05/23/2016 which revealed invasive mammary carcinoma that was grade 3 with ductal carcinoma in situ present as well. The tumor was 2.5 cm in greatest dimension. There was no evidence of lymphovascular space invasion or perineural invasion. The margins were negative for both invasive carcinoma and ductal carcinoma in situ and the closest margin was 1 mm for ductal carcinoma in situ. One sentinel lymph node was excised and was negative for metastatic carcinoma. The patient was staged as pT2N0. The patient was seen in consultation by Dr. Clay Sarmiento for medical oncology to discuss the role of systemic chemotherapy and anterior hormonal therapy. Dr. Sarmiento advised against chemotherapy due to the patient's low platelet count and history of cirrhosis. Dr. Sarmiento has recommended consideration for anti- hormonal therapy. We are now seeing the patient in consultation to discuss the role of adjuvant radiation therapy. Overall, the patient is doing relatively well. She has healed up well from surgery. She has no complaints currently. She underwent a CT simulation. She was found to be a candidate for hypo- fractionation. The radiation was completed 08/09/2016. She received 5130 cGy. (Manda Akers PA-C) Interim History She's been doing well over the past month. She has some mild discomfort in the lateral aspect of the breast. She notices this at night if she rolls onto the side. There has been some dark discoloration to the skin and peeling. She also had a small area that became red and slightly open. This was at the inner part of the incision at the axilla. She uses Polysporin on this area and hit his steadily improved and healed. She's noted no masses. She's had no swelling of her arm. She does have future mammography scheduled. This may be a prior study which would be an annual screening mammogram. She is following with Dr. Jara in regards to the lesion of the liver. She is having a recheck MRI tomorrow to determine if this has become larger in size. (Manda Akers PA-C) Allergies Coded Allergies: QUINCY Inhibitors (Verified Allergy, Severe, caugh, 07/28/16) Adhesives (Verified Allergy, Intermediate, rash, 07/28/16) Aminoglycosides (Verified Allergy, Intermediate, rash, 07/28/16) Bacitracin (Verified Allergy, Intermediate, rash, 07/28/16) Levofloxacin (Verified Allergy, Unknown, CHEST PAIN, 07/28/16) TABLETS Neomycin (Verified Allergy, Unknown, RED RASH, 07/28/16) Home Medications Scheduled Calcium/Vitamin D (Os-Molina 500 Plus D), 2 TAB PO DAILY Clobetasol Propionate (Clobetasol Propionate), 1 APPLN TOP PRN Cyanocobalamin (Vitamin B12), 2,000 MCG PO QAM Escitalopram Oxalate (Lexapro), 20 MG PO DAILY Ferrous Sulfate (Iron), 325 MG PO QAM Gabapentin (Neurontin), 800 MG PO QAM Insulin Aspart (Novolog Penfill), 25 UNITS SC TIDM Insulin Glargine (Lantus Solostar Pen), 65 UNITS SC HS Losartan Potassium (Cozaar), 50 MG PO DAILY Mirabegron (Myrbetriq Er), 25 MG PO QAM Omeprazole (Prilosec), 20 MG PO BID Polyethylene Glycol 3350 (Miralax), 17 GM PO Q2D Probiotic Product (FreeWheel), 1 CAP PO QAM Propranolol (Inderal), 10 MG PO TID Psyllium (Metamucil), 1 DOSE PO Q2D Tamoxifen (Nolvadex), 20 MG PO DAILY Trazodone Hcl (Trazodone), 50 MG PO HS Scheduled PRN Acyclovir (Zovirax), 200 MG PO UD PRN for COLD SORES Alprazolam (Xanax), 0.25 MG PO HS PRN for SLEEP/ANXIETY Dicyclomine Hcl (Bentyl), 10 MG PO QAM PRN for stomach issues Fexofenadine-Pseudoephedrine (Emmy-D 12 Hour Allergy), 1 TAB PO BID PRN for PRN Review of Systems Gastrointestinal: Symptoms: Nausea, Diarrhea GI Comments: " 6-7 diarrhea stools a day, has vericose veins in throat " Oral: Symptoms: No Problems Respiratory: Symptoms: Dry Cough, SOB With Exertion Respiratory Comments: wears C Pap machine at night Urinary: Symptoms: Incontinence, Nocturia Comments: nocturia 0-3 times Skin: Symptoms: No Problems Breast: Right Upper Arm Measurement: 39.0 Right Mid Arm Measurement: 28.0 Right Wrist Measurement: 17.3 Left Upper Arm Measurement: 41.0 Left Mid Arm Measurement: 28.0 Left Wrist Measurement: 17.4 Arm Dominence: Right Patient Cosmetic Evaluation: Good Staff Cosmetic Evalaluation: Good Additional Notes: She completed a distress management report and answered "no" to all questions. (Manda Akers PA-C) Physical Exam Vital Signs Date Time Temp Pulse Resp B/P (MAP) Pulse Ox O2 Delivery O2 Flow Rate FiO2 09/07/16 14:07 37.0 57 20 111/55 97 Pain: Side: Bilateral Patient Pain Scale: 0 - 10 Initial Pain Intensity: 0.0 Fatigue: None General Appearance: no apparent distress Eyes: normal inspection, EOMI ENT: normal ENT inspection, hearing grossly normal Neck: no adenopathy, thyroid normal Respiratory/Chest: lungs clear, no respiratory distress, no accessory muscle use Breast: There is resolving hyperpigmentation of the left breast. She also has edema in the lower quadrants. There are no masses or tenderness and no axillary adenopathy. There is small area that has healed of the medial aspect of the axillary incision. There are no skin retractions. She has generalized dry desquamation. Using the [place] score cosmesis she currently has a fair outcome. The right breast showed no masses or tenderness no axillary adenopathy. Cardiovascular: regular rate, rhythm, no gallop, no murmur Abdomen: non tender, soft, no organomegaly Extremities: no pedal edema Neurologic/Psychiatric: no motor/sensory deficits, alert, normal mood/affect Skin: warm/dry (Manda Akers PA-C) Laboratory Studies Test 06/26/16 09:25 07/28/16 08:43 07/28/16 10:10 White Blood Count 3.18 K/uL (4.8-10.8) Red Blood Count 4.10 M/uL (4.2-5.4) Hemoglobin 12.7 g/dL (12.0-16.0) Hematocrit 39.2 % (37-47) Mean Corpuscular Volume 95.6 fL (80-100) Mean Corpuscular Hemoglobin 31.0 pg (25-34) Mean Corpuscular Hemoglobin Concent 32.4 g/dl (32-36) Platelet Count 71 K/uL (130-400) Mean Platelet Volume 12.6 fL (7.4-10.4) Neutrophils (%) (Auto) 54.1 % Lymphocytes (%) (Auto) 30.5 % Monocytes (%) (Auto) 10.7 % Eosinophils (%) (Auto) 3.8 % Basophils (%) (Auto) 0.9 % Neutrophils # (Auto) 1.72 K/uL (1.4-6.5) Lymphocytes # (Auto) 0.97 K/uL (1.2-3.4) Monocytes # (Auto) 0.34 K/uL (0.11-0.59) Eosinophils # (Auto) 0.12 K/uL (0-0.5) Basophils # (Auto) 0.03 K/uL (0-0.2) RDW Standard Deviation 54.7 fL (36.4-46.3) RDW Coefficient of Variation 15.6 % (11.5-14.5) Immature Granulocyte % (Auto) 0.0 % Immature Granulocyte # (Auto) 0.00 K/uL (0.00-0.02) Platelet Estimate DECREASED Sodium Level 145 mmol/L (136-145) Potassium Level 3.7 mmol/L (3.5-5.1) Chloride Level 108 mmol/L (98-107) Carbon Dioxide Level 30 mmol/L (21-32) Anion Gap 7.0 mmol/L (3-11) Blood Urea Nitrogen 9 mg/dl (7-18) Creatinine 0.60 mg/dl (0.60-1.20) Estimated GFR () 107.8 Estimated GFR (Non- 93.0 BUN/Creatinine Ratio 14.3 (10-20) Random Glucose 102 mg/dl (70-99) Estimated Average Glucose 146 mg/dl Hemoglobin A1c 6.7 % (4.5-5.6) Calcium Level 9.0 mg/dl (8.5-10.1) Total Bilirubin 1.5 mg/dl (0.2-1) Aspartate Amino Transferase (AST) 47 U/L (15-37) Alanine Aminotransferase (ALT) 31 U/L (12-78) Alkaline Phosphatase 150 U/L (45-117) Total Protein 6.9 gm/dl (6.4-8.2) Albumin 3.1 gm/dl (3.4-5.0) Globulin 3.8 gm/dl (2.5-4.0) Albumin/Globulin Ratio 0.8 (0.9-2) Triglycerides Level 89 mg/dl (0-150) Cholesterol Level 130 mg/dl (0-200) HDL Cholesterol 67 mg/dl LDL Cholesterol, Calculated 45 mg/dl VLDL Cholesterol, Calculated 18 mg/dl Cholesterol/HDL Ratio 1.9 POC Glucose 117 mg/dl (70-90) 117 mg/dl (70-90) (Manda Akers PA-C) Assessment & Plan Plan: The patient was also seen today by Dr. Sarmiento. She'll be seeing Dr. Ramon on September 27. We will defer scheduling of the breast imaging to his office. She stated that she felt that mammography alone was not adequate for her evaluations. I reviewed with her that her mammograms will be digital diagnostic mammograms. They would also have available tomosynthesis and ultrasound depending on the findings of mammography. Today we completed a cancer survivorship care plan. A copy of the document was given to the patient. She'll follow-up with Dr. Jara in regards to her recheck liver MRI that will be performed tomorrow. We discussed that the skin changes will steadily improve over time. We asked her to return to our office in 6 months. She will recall she has any questions or concerns in the interim. (Manda Akers PA-C) I agree with note created by Manda Akers PA-C. I reviewed the patient's chart and information with her. I have examined and evaluated the patient. I reviewed relevant clinical information and answered the patient's and/or family' s questions. (Veeral. Sarmiento MD) Total Time In Follow-Up I spent 20 minutes speaking to the patient and performing examination. I spent 20 minutes reviewing information, preparing the survivorship document, and completing this note. (Manda Akers PA-C) I spent 15 minutes examining and counseling the patient. (Veeral. Sarmiento MD) Problem Qualifiers (1) Breast cancer: Breast location: upper outer quadrant of breast Estrogen receptor status: positive Patient sex: female Laterality: left Qualified Codes: C50.412 - Malignant neoplasm of upper-outer quadrant of left female breast; Z17.0 - Estrogen receptor positive status [ER+]
== END | disposition home or self-care (01) ==
LOC: C.ONC 13:57
PROVIDERS: ATTEND Physician Assistant Medical
DX: Z08 Encounter for follow-up examination after completed treatment for malignant neoplasm (principal); Z92.3 Personal history of irradiation; Z85.3 Personal history of malignant neoplasm of breast

== ENCOUNTER → 2016-09-08 | Outpatient (CLI) | payer OTHER, BC ==
[~2016-09-08] MED LIST changes: -FLUO20CA35 PO; +GADOXETATE DISODIUM (NON-WT BASED PROCEDURE) IV PRN; -OXYB3.9D TD
--- NOTE | 2016-09-08 18:01 | DIAGNOSTIC IMAGING REPORT ---
MRI OF THE ABDOMEN COMBO CLINICAL HISTORY: Hepatocellular carcinoma.. COMPARISON STUDY: Abdominal CT dated 07/28/2016. Abdominal MRI dated 08/11/2016.. TECHNIQUE: MRI of the abdomen is performed transverse T1 and T2-weighted sequences in the axial and coronal planes. Contrast enhanced sequences were acquired following the IV administration of 10 cc of Eovist. MRCP images were acquired. Subtraction imaging was utilized. The examination is modestly compromised by motion artifact. FINDINGS: Lower chest: No pleural effusion is identified. The heart is normal in size. There is a small hiatal hernia. Liver: The liver is cirrhotic in morphology and heterogeneous in signal intensity. There is nodularity of the surface contour. No intrahepatic biliary ductal dilatation is seen. The hepatic veins and portal veins are patent. Again seen is a 2.2 cm arterially hypervascular lesion in hepatic segment VIII seen on axial arterial phase image #33. This shows delayed washout and has minimally increased in size from 08/11/2016. The enhancement cannot remain typical for hepatocellular carcinoma. There is a second smaller lesion is seen more superiorly in segment VIII on axial image #26. This measures 1.1 cm and is much more conspicuous when compared to previous. No additional arterially hypervascular lesions are identified. Gallbladder: Surgically absent. The common bile duct is normal in caliber measuring up to 5 mm. There are no filling defects to suggest choledocholithiasis. The pancreatic duct is normal in appearance. Spleen: The spleen is enlarged, measuring 19 cm in length. A 1.1 cm T2 hyperintense structure in the posterior spleen is unchanged and of doubtful significance. Pancreas: Atrophic and grossly unremarkable. Adrenal glands: Unremarkable. Kidneys: The kidneys demonstrate mild cortical atrophy and are without hydronephrosis. The kidneys enhance symmetrically. Scattered subcentimeter cysts are noted. Bowel: Visualized portions of the small bowel and colon show no evidence of obstruction. Peritoneum: There is trace perihepatic and perisplenic ascites. Lymphadenopathy: None. Skeletal structures: Visualized skeletal structures times are normal marrow signal intensity. IMPRESSION: 1. Cirrhosis with evidence of portal hypertension including splenomegaly and trace perihepatic and perisplenic ascites. 2. There has been a slight increase in size of a 2.2 cm hypervascular lesion in hepatic segment VIII as compared to 08/11/2016. Enhancement kinetics are typical for hepatocellular carcinoma. 3. There is now a second lesion apparent in segment VIII which measures up to 1.1 cm. This is significantly more conspicuous than on the prior examination and is also typical in appearance for hepatocellular carcinoma. 4. Additional findings as above. Electronically signed by: Paulo Pan M.D. 09/08/2016 6:00 PM Dictated Date/Time: 09/08/2016 5:46 PM
== END | disposition home or self-care (01) ==
LOC: C.MRI 15:30
PROVIDERS: ATTEND Internal Medicine Gastroenterology
DX: C22.0 Liver cell carcinoma (principal); K74.60 Unspecified cirrhosis of liver; K76.6 Portal hypertension; R16.1 Splenomegaly, not elsewhere classified

== ENCOUNTER 2017-01-14 11:28 | Emergency (ER) | payer OTHER, BC ==
[~2017-01-14] VITALS: Ht 157.5 cm; Wt 139.7 kg
[~2017-01-14 11:28] MED LIST changes: +ACYC-57 PO; -ACYC1CAP8 PO; -GADOXETATE DISODIUM (NON-WT BASED PROCEDURE) IV PRN; -TAMO20TA47 PO; +TAMO20TA9 PO
[2017-01-14 11:33] VITALS: TEMP 36.6; Ht 157.5 cm; Wt 139.7 kg
[2017-01-14 11:52] VITALS: O2SAT 97
--- NOTE | 2017-01-14 11:59 | EMERGENCY ROOM VISIT NOTE ---
ED Visit Note First contact with patient: 11:42 I evaluated the patient and did a history and physical exam. Orders were placed by myself. I was then notified by the patient's nurse that she did not wish to have me provider. Out of courtesy I canceled all my orders. I discussed the patient's condition with the physician who is coming in so he could evaluate her further.
[2017-01-14] MEDS ORDERED: ALBUT/IPRATROP 3MG/0.5MG NEB 3 ML VIAL INH STA (12:12)
[2017-01-14] MEDS ORDERED: SODIUM CHLORIDE 0.9% 1000ML 1,000 ML IV STA (12:12)
--- NOTE | 2017-01-14 12:42 | EMERGENCY ROOM VISIT NOTE ---
History Report prepared by Laurence: Ning Garcia Under the Supervision of: Dr. Jay Jay Rodriguez M.D. First contact with patient: 12:06 Chief Complaint: RESPIRATORY PROBLEMS Stated Complaint: SEVERE PAIN IN RIGHT LEG Nursing Triage Summary: Pt c/o increased swelling in BLE and SOB for a couple weeks, states that pain in R leg is from her R lower back to her foot. No redness noted to BLE, tenderness to R be, bilat pedal pulses palpable. Pt denies chest pain or cough. History of Present Illness The patient is a 71 year old female who presents to the Emergency Room with complaints of worsening right leg pain that started a couple of days ago. The patient rates her pain a 10/10 in severity. The patient states the pain is radiates from her right hip down to her foot. She notes she has also been experiencing shortness of breath since her leg pain has worsened. The patient has a history of breast cancer and liver cancer. She notes her last chemotherapy treatment was November 02, 2016. She states it was a chemo embolization of liver and they killed 3 masses. The patient notes she is unable to walk secondary to her leg pain and SOB. Her daughter states yesterday was the first time she has seen her in 2 months and it was clear she has gotten worse since the last time she saw her. The patient reports that exertion worsens her pain. She notes she keeps her legs elevated to relieve the pain. The patient denies any fever, chills, nausea, vomiting, or congestion. Source of History: patient Onset: a couple of days ago Position: leg (right) Symptom Intensity: 10/10 Timing: worsening Modifying Factors (Worsening): exertion Modifying Factors (Relieving): elevation Associated Symptoms: No fevers, No chills, No nausea, No vomiting Note: The patient denies any congestion. Review of Systems See HPI for pertinent positives and negatives. A total of ten systems were reviewed and were otherwise negative. Past Medical & Surgical History of breast and liver cancer. Social History Smoking Status: Never Smoker Smokeless Tobacco Use: No Drug Use: none Housing Status: lives alone Current/Historical Medications Scheduled Calcium/Vitamin D (Os-Molina 500 Plus D), 2 TAB PO DAILY Clobetasol Propionate (Clobetasol Propionate), 1 APPLN TOP PRN Cyanocobalamin (Vitamin B12), 3,000 MCG PO QAM Dicyclomine Hcl (Bentyl), 10 MG PO BID Escitalopram (Lexapro), 10 MG PO DAILY Ferrous Sulfate (Iron), 325 MG PO QAM Gabapentin (Neurontin), 800 MG PO QAM Insulin Glargine (Lantus Solostar), 65 UNITS SC HS Omeprazole (Prilosec), 20 MG PO BID Polyethylene Glycol 3350 (Miralax), 17 GM PO DAILY Probiotic Product (Econotherm), 1 CAP PO QAM Propranolol (Inderal), 10 MG PO TID Psyllium (Metamucil), 1 DOSE PO DAILY Tamoxifen Citrate (Tamoxifen Citrate), 10 MG PO DAILY Trazodone Hcl (Trazodone), 50 MG PO HS Scheduled PRN Acyclovir (Zovirax), 200 MG PO UD PRN for COLD SORES Alprazolam (Xanax), 0.25 MG PO TID PRN for SLEEP/ANXIETY Fexofenadine-Pseudoephedrine (Emmy-D 12 Hour Allergy), 1 TAB PO BID PRN for PRN Insulin Aspart (Novolog Flexpen), 1 DOSE SC TIDM PRN for SLIDING SCALE Allergies Coded Allergies: QUINCY Inhibitors (Verified Allergy, Severe, caugh, 01/14/17) Adhesives (Verified Allergy, Intermediate, rash, 01/14/17) Aminoglycosides (Verified Allergy, Intermediate, rash, 01/14/17) Bacitracin (Verified Allergy, Intermediate, rash, 01/14/17) Levofloxacin (Verified Allergy, Unknown, CHEST PAIN, 01/14/17) TABLETS Neomycin (Verified Allergy, Unknown, RED RASH, 01/14/17) CAN USE POLYMYCIN Physical Exam Vital Signs Date Time Temp Pulse Resp B/P (MAP) Pulse Ox O2 Delivery O2 Flow Rate FiO2 01/14/17 18:34 83 20 129/77 91 01/14/17 16:35 60 20 132/66 96 Room Air 01/14/17 12:20 77 01/14/17 12:10 Room Air 01/14/17 11:52 97 Room Air 01/14/17 11:33 36.6 79 20 173/88 97 Room Air Physical Exam GENERAL: Awake, alert, well-appearing, in no distress HENT: Normocephalic, atraumatic. Oropharynx unremarkable. Dry mucus membranes. EYES: Normal conjunctiva. Sclera non-icteric. NECK: Supple. No nuchal rigidity. FROM. No JVD. RESPIRATORY: Clear to auscultation. CARDIAC: Regular rate, normal rhythm. Extremities warm and well perfused. Pulses equal. BACK: Mild tenderness to right lower lumbar region extending distally in sciatic distribution. ABDOMEN: Soft, non-distended. No rebound or guarding. No masses. Obese. RECTAL: Normal rectal tone. MUSCULOSKELETAL: Chest examination reveals no tenderness. The back is symmetrical on inspection without obvious abnormality. There is no CVA tenderness to palpation. No joint edema. LOWER EXTREMITIES: Scant BLE edema that is symmetric. 5/5 strength and SILT X 4 extremities. NEURO: Normal sensorium. No sensory or motor deficits noted. SKIN: No rash or jaundice noted. Medical Decision & Procedures ER Provider Diagnostic Interpretation: Radiology results as stated below per my review and radiologist interpretation: R VENOUS DOPP LOWER EXT UNILAT HISTORY: 71 years-old Female leg pain and swelling acute right leg pain and swelling with concern for DVT COMPARISON: None available TECHNIQUE: Multiple real-time sonogram images of the right lower extremity deep venous structures were obtained assessing grayscale appearance, color and spectral flow FINDINGS: There is normal flow, phasicity, compressibility and augmentation within the right lower extremity deep venous structures. IMPRESSION: No sonographic evidence of deep venous stenosis. The above report was generated using voice recognition software. It may contain grammatical, syntax or spelling errors. Electronically signed by: Tin Marshall M.D. 01/14/2017 1:39 PM Dictated Date/Time: 01/14/2017 1:37 PM CHEST ONE VIEW PORTABLE HISTORY: 71 years-old Female ABDOMINAL PAIN/GI acute generalized abdominal pain COMPARISON: Chest radiographs 03/10/2011 TECHNIQUE: Portable upright AP view of the chest FINDINGS: Exam is mildly limited secondary to rightward patient rotation. Cardiac silhouette is mildly enlarged, unchanged. There is atherosclerosis of the aorta. No pneumothorax. Linear subsegmental bibasilar opacities are noted with blunting of left costophrenic angle. No overt pulmonary edema. Bones are grossly intact. IMPRESSION: 1. Cardiomegaly without overt pulmonary edema. 2. Linear subsegmental bibasilar opacities suggest atelectasis or less likely pneumonia. 3. Trace left pleural effusion. The above report was generated using voice recognition software. It may contain grammatical, syntax or spelling errors. Electronically signed by: Tin Marshall M.D. 01/14/2017 1:19 PM Dictated Date/Time: 01/14/2017 1:17 PM ABDOMEN AND PELVIS CT WITH IV CONTRAST HISTORY: Acute edema of the lower extremities with history of cirrhotic liver disease with hepatocellular carcinoma. BLE edema, h/o liver cancer TECHNIQUE: Multiaxial CT images of the abdomen and pelvis were performed following the use of intravenous contrast. 116 mL Optiray 320 IV contrast was administered A dose lowering technique was utilized adhering to the principles of ALARA. COMPARISON STUDY: CT of the liver 07/28/2016, CTA of the chest same day, MRI of the liver 09/08/2016. FINDINGS: Small left pleural effusion with left basilar consolidation suggesting atelectasis. Subsegmental consolidative opacities are also present within the right lung base dependently. There is no pneumoperitoneum identified. Imaged inferior cardiac chambers are mildly enlarged. Coronary arterial calcifications are present. Cirrhotic morphology of the liver is again noted. Focal area of low-attenuation within segment VIII of the liver measuring 1.4 x 1.4 cm correlates with arterially enhancing lesion seen on comparison MR dated 09/08/2016. Additionally, there are areas of ill-defined heterogeneous decreased attenuation involving the dome of the liver as seen on image 14 series 5. Prior cholecystectomy. Evidence of portal venous hypertension with splenomegaly measuring 18.7 cm in length. Small volume intra-abdominal and intrapelvic ascites is also noted with upper abdominal varices and portosystemic collaterals. Pancreas and adrenal glands are unremarkable. Kidneys demonstrate no acute abnormal. Low attenuating lesion of the inferior pole left kidney, 1.7 cm suggests cyst, however is nonspecific on this single phase study. Ureters and urinary bladder are unremarkable. Urinary bladder is only partially distended. Prior hysterectomy. The dominant aorta is normal in course and caliber. No bulky adenopathy. Small sliding-type hiatal hernia. Periesophageal varices noted. Diverticulum involving the distal duodenum redemonstrated. There is no bowel obstruction. Mild to moderate colonic diverticulosis without evidence of diverticulitis. The appendix is not seen and may be surgically absent. Patient obesity is noted. Small fat filled periumbilical hernia, diastases 2.3 cm. Mild diffuse body wall edema. The bones appear mildly demineralized. Multilevel degenerative changes of the spine. IMPRESSION: 1. Cirrhotic morphology of the liver with stigmata of portal venous hypertension including splenomegaly, small volume intra-abdominal and intrapelvic ascites with upper abdominal varices and portosystemic collaterals. 2. 1.4 cm low attenuating lesion within segment VIII of the liver correlates with probable hepatocellular carcinoma seen on comparison liver MR 09/08/2016. Additionally, there is ill-defined heterogeneous low-attenuation involving the hepatic dome which does not correlate with a previously described mass. Correlate with AFP level. 3. Mild diffuse body wall edema with small left pleural effusion and bibasilar consolidative opacities suggesting atelectasis. 4. Small fat filled periumbilical hernia, diastases 2.3 cm. Electronically signed by: Tin Marshall M.D. 01/14/2017 3:16 PM Dictated Date/Time: 01/14/2017 3:03 PM LUMBAR SPINE WITHOUT HISTORY: 71 years-old Female right leg, sciatica acute right leg pain with sciatica. Lower extremity swelling with shortness of breath. COMPARISON: CT abdomen and pelvis of same day TECHNIQUE: Multiple axial CT images of the lumbar spine were obtained without contrast. A dose lowering technique was used consistent with the principals of ALARA. FINDINGS: No acute fracture or subluxation identified. Moderate discogenic degenerative changes are present at L4-L5. There is moderate facet arthrosis throughout the mid and lower lumbar levels. Multilevel endplate spurring and annular disc bulging. Mild lumbar levoscoliosis. Evaluation of the central canal and neuroforamen is limited compared to that of MRI. No severe central canal stenosis identified. The imaged soft tissues, paraspinal and intra-abdominal structures demonstrate no acute abnormality. Cirrhotic morphology of the liver with abdominal ascites and splenomegaly redemonstrated. IMPRESSION: . 1. No acute fracture or subluxation. 2. Moderate multilevel facet arthrosis of the mid and lower lumbar levels with moderate discogenic degenerative changes at L4-L5 The above report was generated using voice recognition software. It may contain grammatical, syntax or spelling errors. Electronically signed by: Tin Marshall M.D. 01/14/2017 3:34 PM Dictated Date/Time: 01/14/2017 3:31 PM (CHEST FOR PE) ANGIO WITH HISTORY: 71 years-old Female presents with acute right leg swelling and shortness of breath with dyspnea. TECHNIQUE: Multiple CTA images of the chest were obtained after the intravenous administration of 119 ml Optiray 320. Coronal and sagittal MIPS were obtained from the axial data set and were submitted for review. A dose lowering technique was utilized adhering to the principles of ALARA. COMPARISON: CT abdomen and pelvis of same day. FINDINGS: CTA: There is moderate multichamber cardiac enlargement without pericardial effusion. Coronary arterial calcifications are present. The thoracic aorta is normal in both course and caliber without aneurysm or dissection. Imaged great vessels are tortuous, however appear patent. The pulmonary arterial tree is well-opacified to the level of the proximal segmental branches and demonstrates no focal filling defect to suggest pulmonary thromboembolic disease. Segmental branches are not well-seen secondary to contrast bolus timing and respiratory motion. CT CHEST: Thyroid is heterogeneous without dominant nodule. Nodularity within the left lateral breast axillary region is partially imaged measuring up to 1.5 cm. See image 188 of series 4. Otherwise, there is no pathologic adenopathy about the chest. Mild diffuse body wall edema with patient obesity noted. Small to moderate left pleural effusion with subsegmental dependent bibasilar consolidative opacities suggesting atelectasis. There is no pneumothorax. Central airways are patent. No suspicious pulmonary nodules or masses identified. Cirrhotic morphology of the liver noted with upper abdominal ascites, splenomegaly and varices. The bones appear intact. Degenerative changes are seen within the spine. IMPRESSION: 1. No acute aortic pathology or evidence of pulmonary thromboembolic disease. 2. Moderate cardiomegaly with small to moderate left pleural effusion and dependent bibasilar consolidative opacities suggesting atelectasis. 3. Cirrhotic morphology of the liver with upper abdominal ascites and stigmata of portal hypertension redemonstrated. 4. Partially imaged soft tissue nodularity within the region of the upper lateral left breast/axillary region as above. Correlate with mammography. The above report was generated using voice recognition software. It may contain grammatical, syntax or spelling errors. Electronically signed by: Tin Marshall M.D. 01/14/2017 3:30 PM Dictated Date/Time: 01/14/2017 3:25 PM MRI: Two cavities in segment 8 of liver that were believed to be consistent with treated hepatocellular carcinoma. Status post chemo embolization. Laboratory Results 01/14/17 11:45 Red Blood Count 3.92, Mean Corpuscular Volume 99.7, Mean Corpuscular Hemoglobin 30.9, Mean Corpuscular Hemoglobin Concent 30.9, Mean Platelet Volume 11.4, Neutrophils (%) (Auto) 63.2, Lymphocytes (%) (Auto) 23.1, Monocytes (%) (Auto) 9.8, Eosinophils (%) (Auto) 2.7, Basophils (%) (Auto) 0.8, Neutrophils # (Auto) 1.67, Lymphocytes # (Auto) 0.61, Monocytes # (Auto) 0.26, Eosinophils # (Auto) 0.07, Basophils # (Auto) 0.02 01/14/17 11:45 Test 01/14/17 11:45 01/14/17 11:55 01/14/17 12:50 White Blood Count 2.64 K/uL (4.8-10.8) Red Blood Count 3.92 M/uL (4.2-5.4) Hemoglobin 12.1 g/dL (12.0-16.0) Hematocrit 39.1 % (37-47) Mean Corpuscular Volume 99.7 fL (80-100) Mean Corpuscular Hemoglobin 30.9 pg (25-34) Mean Corpuscular Hemoglobin Concent 30.9 g/dl (32-36) Platelet Count 55 K/uL (130-400) Mean Platelet Volume 11.4 fL (7.4-10.4) Neutrophils (%) (Auto) 63.2 % Lymphocytes (%) (Auto) 23.1 % Monocytes (%) (Auto) 9.8 % Eosinophils (%) (Auto) 2.7 % Basophils (%) (Auto) 0.8 % Neutrophils # (Auto) 1.67 K/uL (1.4-6.5) Lymphocytes # (Auto) 0.61 K/uL (1.2-3.4) Monocytes # (Auto) 0.26 K/uL (0.11-0.59) Eosinophils # (Auto) 0.07 K/uL (0-0.5) Basophils # (Auto) 0.02 K/uL (0-0.2) RDW Standard Deviation 55.6 fL (36.4-46.3) RDW Coefficient of Variation 15.3 % (11.5-14.5) Immature Granulocyte % (Auto) 0.4 % Immature Granulocyte # (Auto) 0.01 K/uL (0.00-0.02) Platelet Estimate DECREASED Anion Gap 6.0 mmol/L (3-11) Est Creatinine Clear Calc Drug Dose 122.1 ml/min Estimated GFR () 108.4 Estimated GFR (Non- 93.5 BUN/Creatinine Ratio 20.1 (10-20) Calcium Level 9.0 mg/dl (8.5-10.1) Total Bilirubin 1.7 mg/dl (0.2-1) Direct Bilirubin 0.5 mg/dl (0-0.2) Aspartate Amino Transf (AST/SGOT) 52 U/L (15-37) Alanine Aminotransferase (ALT/SGPT) 30 U/L (12-78) Alkaline Phosphatase 131 U/L (45-117) Troponin I < 0.015 ng/ml (0-0.045) Pro-B-Type Natriuretic Peptide 418 pg/ml (0-900) Total Protein 6.6 gm/dl (6.4-8.2) Albumin 2.7 gm/dl (3.4-5.0) Lipase 137 U/L (73-393) Bedside D-Dimer > 450 ng/mlFEU (0-450) Urine Color YELLOW Urine Appearance CLOUDY (CLEAR) Urine pH 7.0 (4.5-7.5) Urine Specific [place] 1.021 (1.000-1.030) Urine Protein NEG (NEG) Urine Glucose (UA) NEG (NEG) Urine Ketones NEG (NEG) Urine Occult Blood NEG (NEG) Urine Nitrite NEG (NEG) Urine Bilirubin NEG (NEG) Urine Urobilinogen NEG (NEG) Urine Leukocyte Esterase TRACE (NEG) Urine WBC (Auto) 1-5 /hpf (0-5) Urine RBC (Auto) 0-4 /hpf (0-4) Urine Hyaline Casts (Auto) 1-5 /lpf (0-5) Urine Epithelial Cells (Auto) >30 /lpf (0-5) Urine Bacteria (Auto) NEG (NEG) Laboratory results reviewed by me Medications Administered Medications (Trade) Dose Ordered Sig/Samir Route Start Time Stop Time Status Last Admin Dose Admin Sodium Chloride 1,000 ml @ 125 mls/hr Q8H STAT IV 01/14/17 12:12 01/14/17 19:00 DC 01/14/17 12:46 125 MLS/HR Albuterol/ Ipratropium (Duoneb) 3 ml NOW STAT INH 01/14/17 12:12 01/14/17 12:23 DC 01/14/17 12:57 3 ML Ketorolac Tromethamine (Toradol Inj) 30 mg NOW STAT IV 01/14/17 13:48 01/14/17 13:49 DC 01/14/17 14:32 30 MG Oxycodone/ Acetaminophen (Percocet 5-325mg Tab) 1 tab NOW ONCE PO 01/14/17 16:30 01/14/17 16:31 DC 01/14/17 16:31 1 TAB ECG Indication: SOB/dyspnea, other (right leg pain) Rate (beats per minute): 57 Rhythm: sinus bradycardia Findings: no acute ischemic change, other (normal axis) Change: no significant change ED Course 1206: The patient was evaluated in room C6. A complete history and physical exam was performed. 1212: Duoneb 3 ml INH, Sodium Chloride 1000 ml @ 125 mls/hr IV. 1348: Toradol Inj 30 mg IV. 1600: Upon reexamination, the patient was resting comfortably. I discussed the test results and treatment plan with her. The patient will be evaluated for further management. 1630: Oxycodone/Acetaminophen 1 tab PO. 1710: I discussed the patient with case management - [facility] will evaluate the patient for further treatment. Medical Decision I reviewed the patient's past medical history, medications, and the nursing notes as described above. The patient's presentation and history were concerning for PE, PNA, bronchitis, IVC thrombosis, portal hypertension, DVT, sciatica, bone mets. The patient is a 71-year-old woman with a past medical history of endometrial cancer, breast cancer and hepatocellular carcinoma with last radiation treatment and chemoembolization in August with subsequent remission presents to [facility] with worsening right lower extremity pain and constant dips dyspnea per history of present illness. Arrival the patient is in no acute distress, afebrile with stable vital signs. He has mild tenderness to the right lower lumbar region with pain extending distally in the sciatic distribution. She has scant bilateral lower extremity edema that is symmetric. EKG unremarkable. Labs otherwise unchanged from recent and unremarkable. Duplex right lower extremity negative for DVT. CTA of the chest negative for PE or pneumonia. CT of the abdomen shows likely corresponds to a recent outpatient MRI that on areas in the liver segment 8 that were consistent with recently treated chemoembolic therapy. CT of the L-spine showing arthropathy in the L-spine that likely explain the patient's symptoms. The patient has good strength and sensation and normal rectal tone, no indication for emergent MRI at this time. Patient is able to ambulate albeit with mild pain patient and family are concerned that time the pain can be debilitating at times to the point where she cannot walk and are concerned because she lives by herself. Case management assisting and were able to obtain a bed at [facility] for rehabilitation. The patient was discharged with plan for private transportation to [facility]. Findings and plan for follow-up reviewed with patient. Patient agreeable and d/c'd per discharge instructions. Medication Reconcilliation Current Medication List: was personally reviewed by me Blood Pressure Screening Patient's blood pressure: Elevated blood pressure Blood pressure disposition: Elevated BP felt to be situational Impression Primary Impression: Lumbosacral radiculopathy Scribe Attestation The scribe's documentation has been prepared under my direction and personally reviewed by me in its entirety. I confirm that the note above accurately reflects all work, treatment, procedures, and medical decision making performed by me. Departure Information Dispostion Home / Self-Care Referrals Connor Valdez M.D. (PCP) Patient Instructions Lumbar Radiculopathy, My [facility] Additional Instructions Please follow up with your primary care physician, GI, and cancer specialists next week for re-evaluation. You are being discharged to [facility] where you were accepted for management of your radicular pain. Your imaging appears stable from your recent MRI but you should follow up with your providers regarding today's evaluation. Otherwise, your exam, EKG, chest xray, lab results, CT scans of your chest, abdomen/pelvis, and lumbar spine did not show signs of an emergent condition at this time. Acetaminophen and ibuprofen for pain as needed. Lidoderm patch daily. Oxycodone 5 mg orally every 6 hours as needed for breakthrough pain only. Heating pad at 20 minute intervals for muscle relaxation. Return to the emergency department for worsening symptoms as described in the accompanying instructions.
[2017-01-14 13:03] LABS: ALT/SGPT 30 U/L (12-78); AST/SGOT 52 U/L (15-37); BLOOD UREA NITROGEN 12 mg/dl (7-18); BUN/CREATININE RATIO 20.1 (10-20); CARBON DIOXIDE 28 mmol/L (21-32); CHLORIDE 110 mmol/L (98-107); CREATININE 0.59 mg/dl (0.60-1.20); GLUCOSE 101 mg/dl (70-99); SODIUM 144 mmol/L (136-145)
[2017-01-14 13:08] LABS: ALKALINE PHOSPHATASE 131 U/L (45-117)
[2017-01-14 13:09] LABS: BASO % 0.8 %; BASO ABS # 0.02 K/uL (0-0.2); COMPLETE YES; EOS % 2.7 %; HEMATOCRIT 39.1 % (37-47); IG% 0.4 %; LYMPH % 23.1 %; LYMPH ABS # 0.61 K/uL (1.2-3.4); MEAN CELL VOLUME 99.7 fL (80-100); MEAN CORPUSCULAR HEMOGLOBIN 30.9 pg (25-34); MEAN CORPUSCULAR HGB CONC 30.9 g/dl (32-36); MEAN PLATELET VOLUME 11.4 fL (7.4-10.4); MONO % 9.8 %; NEUT % 63.2 %; PLATELET COUNT 55 K/uL (130-400); PLT ESTIMATE DECREASED; RED BLOOD COUNT 3.92 M/uL (4.2-5.4); WHITE BLOOD COUNT 2.64 K/uL (4.8-10.8)
[2017-01-14 13:15] LABS: URINE APPEARANCE CLOUDY (CLEAR); URINE BILIRUBIN NEG (NEG); URINE COLOR YELLOW; URINE EPITHELIAL CELL AUTO >30 /lpf (0-5); URINE NITRITE NEG (NEG); URINE SPECIFIC GRAVITY 1.021 (1.000-1.030); UROBILINOGEN NEG (NEG); ZZUR CULT IF INDIC CLEAN CATCH NO
--- NOTE | 2017-01-14 13:20 | DIAGNOSTIC IMAGING REPORT ---
CHEST ONE VIEW PORTABLE HISTORY: 71 years-old Female ABDOMINAL PAIN/GI acute generalized abdominal pain COMPARISON: Chest radiographs 03/10/2011 TECHNIQUE: Portable upright AP view of the chest FINDINGS: Exam is mildly limited secondary to rightward patient rotation. Cardiac silhouette is mildly enlarged, unchanged. There is atherosclerosis of the aorta. No pneumothorax. Linear subsegmental bibasilar opacities are noted with blunting of left costophrenic angle. No overt pulmonary edema. Bones are grossly intact. IMPRESSION: 1. Cardiomegaly without overt pulmonary edema. 2. Linear subsegmental bibasilar opacities suggest atelectasis or less likely pneumonia. 3. Trace left pleural effusion. The above report was generated using voice recognition software. It may contain grammatical, syntax or spelling errors. Electronically signed by: Tin Marshall M.D. 01/14/2017 1:19 PM Dictated Date/Time: 01/14/2017 1:17 PM
[2017-01-14 13:30] LABS: MANUAL MICROSCOPIC REQUIRED? NO; REVIEW REQ? NO
--- NOTE | 2017-01-14 13:40 | DIAGNOSTIC IMAGING REPORT ---
R VENOUS DOPP LOWER EXT UNILAT HISTORY: 71 years-old Female leg pain and swelling acute right leg pain and swelling with concern for DVT COMPARISON: None available TECHNIQUE: Multiple real-time sonogram images of the right lower extremity deep venous structures were obtained assessing grayscale appearance, color and spectral flow FINDINGS: There is normal flow, phasicity, compressibility and augmentation within the right lower extremity deep venous structures. IMPRESSION: No sonographic evidence of deep venous stenosis. The above report was generated using voice recognition software. It may contain grammatical, syntax or spelling errors. Electronically signed by: Tin Marshall M.D. 01/14/2017 1:39 PM Dictated Date/Time: 01/14/2017 1:37 PM
[2017-01-14] MEDS ORDERED: KETOROLAC TROMETHAMINE 30 MG/ML VIAL IV STA (13:48)
[2017-01-14] MEDS ORDERED: ESCI10TA17 PO (13:49)
[2017-01-14] MEDS ORDERED: INSDGIPEN SC (13:49)
[2017-01-14] MEDS ORDERED: NVLGIPEN SC (13:49)
[2017-01-14] MEDS ORDERED: PROP10TA7 PO (13:51)
[2017-01-14] MEDS ORDERED: TAMO10TA25 PO (13:52)
[2017-01-14] MEDS ORDERED: OPTIRAY 320 IV PRN (14:15)
--- NOTE | 2017-01-14 15:17 | DIAGNOSTIC IMAGING REPORT ---
ABDOMEN AND PELVIS CT WITH IV CONTRAST HISTORY: Acute edema of the lower extremities with history of cirrhotic liver disease with hepatocellular carcinoma. BLE edema, h/o liver cancer TECHNIQUE: Multiaxial CT images of the abdomen and pelvis were performed following the use of intravenous contrast. 116 mL Optiray 320 IV contrast was administered A dose lowering technique was utilized adhering to the principles of ALARA. COMPARISON STUDY: CT of the liver 07/28/2016, CTA of the chest same day, MRI of the liver 09/08/2016. FINDINGS: Small left pleural effusion with left basilar consolidation suggesting atelectasis. Subsegmental consolidative opacities are also present within the right lung base dependently. There is no pneumoperitoneum identified. Imaged inferior cardiac chambers are mildly enlarged. Coronary arterial calcifications are present. Cirrhotic morphology of the liver is again noted. Focal area of low-attenuation within segment VIII of the liver measuring 1.4 x 1.4 cm correlates with arterially enhancing lesion seen on comparison MR dated 09/08/2016. Additionally, there are areas of ill-defined heterogeneous decreased attenuation involving the dome of the liver as seen on image 14 series 5. Prior cholecystectomy. Evidence of portal venous hypertension with splenomegaly measuring 18.7 cm in length. Small volume intra-abdominal and intrapelvic ascites is also noted with upper abdominal varices and portosystemic collaterals. Pancreas and adrenal glands are unremarkable. Kidneys demonstrate no acute abnormal. Low attenuating lesion of the inferior pole left kidney, 1.7 cm suggests cyst, however is nonspecific on this single phase study. Ureters and urinary bladder are unremarkable. Urinary bladder is only partially distended. Prior hysterectomy. The dominant aorta is normal in course and caliber. No bulky adenopathy. Small sliding-type hiatal hernia. Periesophageal varices noted. Diverticulum involving the distal duodenum redemonstrated. There is no bowel obstruction. Mild to moderate colonic diverticulosis without evidence of diverticulitis. The appendix is not seen and may be surgically absent. Patient obesity is noted. Small fat filled periumbilical hernia, diastases 2.3 cm. Mild diffuse body wall edema. The bones appear mildly demineralized. Multilevel degenerative changes of the spine. IMPRESSION: 1. Cirrhotic morphology of the liver with stigmata of portal venous hypertension including splenomegaly, small volume intra-abdominal and intrapelvic ascites with upper abdominal varices and portosystemic collaterals. 2. 1.4 cm low attenuating lesion within segment VIII of the liver correlates with probable hepatocellular carcinoma seen on comparison liver MR 09/08/2016. Additionally, there is ill-defined heterogeneous low-attenuation involving the hepatic dome which does not correlate with a previously described mass. Correlate with AFP level. 3. Mild diffuse body wall edema with small left pleural effusion and bibasilar consolidative opacities suggesting atelectasis. 4. Small fat filled periumbilical hernia, diastases 2.3 cm. Electronically signed by: Tin Marshall M.D. 01/14/2017 3:16 PM Dictated Date/Time: 01/14/2017 3:03 PM
--- NOTE | 2017-01-14 15:32 | DIAGNOSTIC IMAGING REPORT ---
(CHEST FOR PE) ANGIO WITH HISTORY: 71 years-old Female presents with acute right leg swelling and shortness of breath with dyspnea. TECHNIQUE: Multiple CTA images of the chest were obtained after the intravenous administration of 119 ml Optiray 320. Coronal and sagittal MIPS were obtained from the axial data set and were submitted for review. A dose lowering technique was utilized adhering to the principles of ALARA. COMPARISON: CT abdomen and pelvis of same day. FINDINGS: CTA: There is moderate multichamber cardiac enlargement without pericardial effusion. Coronary arterial calcifications are present. The thoracic aorta is normal in both course and caliber without aneurysm or dissection. Imaged great vessels are tortuous, however appear patent. The pulmonary arterial tree is well-opacified to the level of the proximal segmental branches and demonstrates no focal filling defect to suggest pulmonary thromboembolic disease. Segmental branches are not well-seen secondary to contrast bolus timing and respiratory motion. CT CHEST: Thyroid is heterogeneous without dominant nodule. Nodularity within the left lateral breast axillary region is partially imaged measuring up to 1.5 cm. See image 188 of series 4. Otherwise, there is no pathologic adenopathy about the chest. Mild diffuse body wall edema with patient obesity noted. Small to moderate left pleural effusion with subsegmental dependent bibasilar consolidative opacities suggesting atelectasis. There is no pneumothorax. Central airways are patent. No suspicious pulmonary nodules or masses identified. Cirrhotic morphology of the liver noted with upper abdominal ascites, splenomegaly and varices. The bones appear intact. Degenerative changes are seen within the spine. IMPRESSION: 1. No acute aortic pathology or evidence of pulmonary thromboembolic disease. 2. Moderate cardiomegaly with small to moderate left pleural effusion and dependent bibasilar consolidative opacities suggesting atelectasis. 3. Cirrhotic morphology of the liver with upper abdominal ascites and stigmata of portal hypertension redemonstrated. 4. Partially imaged soft tissue nodularity within the region of the upper lateral left breast/axillary region as above. Correlate with mammography. The above report was generated using voice recognition software. It may contain grammatical, syntax or spelling errors. Electronically signed by: Tin Marshall M.D. 01/14/2017 3:30 PM Dictated Date/Time: 01/14/2017 3:25 PM
--- NOTE | 2017-01-14 15:36 | DIAGNOSTIC IMAGING REPORT ---
LUMBAR SPINE WITHOUT HISTORY: 71 years-old Female right leg, sciatica acute right leg pain with sciatica. Lower extremity swelling with shortness of breath. COMPARISON: CT abdomen and pelvis of same day TECHNIQUE: Multiple axial CT images of the lumbar spine were obtained without contrast. A dose lowering technique was used consistent with the principals of AMBROSE. FINDINGS: No acute fracture or subluxation identified. Moderate discogenic degenerative changes are present at L4-L5. There is moderate facet arthrosis throughout the mid and lower lumbar levels. Multilevel endplate spurring and annular disc bulging. Mild lumbar levoscoliosis. Evaluation of the central canal and neuroforamen is limited compared to that of MRI. No severe central canal stenosis identified. The imaged soft tissues, paraspinal and intra-abdominal structures demonstrate no acute abnormality. Cirrhotic morphology of the liver with abdominal ascites and splenomegaly redemonstrated. IMPRESSION: . 1. No acute fracture or subluxation. 2. Moderate multilevel facet arthrosis of the mid and lower lumbar levels with moderate discogenic degenerative changes at L4-L5 The above report was generated using voice recognition software. It may contain grammatical, syntax or spelling errors. Electronically signed by: Tin Marshall M.D. 01/14/2017 3:34 PM Dictated Date/Time: 01/14/2017 3:31 PM
[2017-01-14] MEDS ORDERED: OXYCODONE/ACETAMINOPHEN 5-325 TAB PO ONE (16:30)
[2017-01-14 18:34] VITALS: BP 129/77; PULSE 83; O2SAT 91
== END 2017-01-14 18:36 | disposition home or self-care (01) ==
LOC: C.EDB 11:29 → C.EDC 18:36
DX: M54.17 Radiculopathy, lumbosacral region (principal); Z85.3 Personal history of malignant neoplasm of breast; Z85.05 Personal history of malignant neoplasm of liver; Z85.42 Personal history of malignant neoplasm of other parts of uterus; Z79.4 Long term (current) use of insulin; Z79.899 Other long term (current) drug therapy

== ENCOUNTER → 2017-01-16 | Outpatient (CLI) | payer BC ==
[~2017-01-16] MED LIST changes: +ESCI10TA17 PO; -ESCI1TAB10 PO; +INSDGIPEN SC; -INSUINJ14 SC; -INSUINJ4 SC; -LOSA50TA6 PO; -MYR25 PO; +NVLGIPEN SC; +PROP10TA7 PO; -PROP20TA67 PO; +TAMO10TA25 PO; -TAMO20TA9 PO
--- NOTE | 2017-01-16 15:11 | MAMMOGRAPHY REPORT ---
BILATERAL DIGITAL DIAGNOSTIC MAMMOGRAM TOMOSYNTHESIS WITH CAD: 01/16/2017 CLINICAL HISTORY: 71-year-old woman with a personal history of left breast cancer status post breast conservation treatment. She presents for first follow-up [facility], and also due for annual right mammography. TECHNIQUE: Bilateral CC and MLO 2-D and tomosynthesis images, spot magnification left CC and ML views as well as left cleavage views were obtained. The current study was also evaluated with the use of computer aided detection (CAD). COMPARISON: Comparison is made to exams dated: 05/22/2016 specimen, 05/22/2016 localization, 04/18/2016 ultrasound biopsy, 04/18/2016 mammogram, 04/05/2016 ultrasound, and 04/05/2016 mammogram - [facility]. BREAST COMPOSITION: The tissue of both breasts is heterogeneously dense, which may obscure small mas ses. FINDINGS: A linear scar marker overlies the lateral anterior left breast. There is expected architec tural distortion in the approximate 2:00 to 3:00 anterior left breast denoting the lumpectomy bed. T here are stable groupings of benign-appearing coarse heterogeneous microcalcifications and scattered benign rim calcifications in the left breast. Mild diffuse trabecular edema and skin thickening like ly related to prior treatment. There are also stable groupings of coarse heterogeneous microcalcific ations and benign rim calcifications in the right breast. No new suspicious mass, focal area of unex pected distortion, developing asymmetry or new suspicious calcifications are identified bilaterally. Recommend another close follow-up left diagnostic tomosynthesis mammogram and possible ultrasound to ensure stability after treatment in 6 more months. Recommend routine right mammography in 1 year. IMPRESSION: ACR-BI-RADS CATEGORY 3: PROBABLY BENIGN 1. Expected posttreatment changes in the left breast, without definite mammographic evidence of hung gnancy. Recommend follow-up left diagnostic tomosynthesis mammograms and possible ultrasound to ensu re stability in 6 months. 2. Stable mammographic appearance of the right breast, without mammographic evidence of malignancy. Recommend 12 month routine screening on the right. These results and recommendations were discussed with the patient at the time of the exam. Approximately 10% of breast cancers are not detected with mammography. A negative mammographic report should not delay biopsy if a clinically suggestive mass is present. Mica Zacarias M.D. ay/:01/16/2017 13:18:42 Web Content & Social Media Manager: Kristal GILBERT)([place]), [facility] letter sent: Follow Up Recommended 3 BI-RADS Code: ACR-BI-RADS Category 3: Probably Benign
== END | disposition home or self-care (01) ==
LOC: C.MAMM 11:07
PROVIDERS: ATTEND Surgery
DX: Z85.3 Personal history of malignant neoplasm of breast (principal); Z98.890 Other specified postprocedural states

== ENCOUNTER → 2017-01-24 | Outpatient (CLI) | payer OTHER, BC ==
[2017-01-24 18:18] LABS: ALT/SGPT 31 U/L (12-78); BLOOD UREA NITROGEN 17 mg/dl (7-18); CALCIUM 9.6 mg/dl (8.5-10.1); CARBON DIOXIDE 28 mmol/L (21-32); CHLORIDE 106 mmol/L (98-107); CREATININE 0.75 mg/dl (0.60-1.20); GLUCOSE 125 mg/dl (70-99); POTASSIUM 3.9 mmol/L (3.5-5.1); SODIUM 140 mmol/L (136-145)
[2017-01-24 18:21] LABS: ALB/GLOB RATIO 0.8 (0.9-2); ALKALINE PHOSPHATASE 111 U/L (45-117); AST/SGOT 45 U/L (15-37)
[2017-01-25 06:47] LABS: ESTIMATED AVERAGE GLUCOSE 131 mg/dl; HA1C FLAG Normal (Normal)
== END | disposition home or self-care (01) ==
LOC: C.LABPVFM 11:41
PROVIDERS: ATTEND Family Medicine
DX: I10 Essential (primary) hypertension (principal); E11.49 Type 2 diabetes mellitus with other diabetic neurological complication; K76.9 Liver disease, unspecified

== ENCOUNTER → 2017-01-31 | Outpatient (CLI) | payer OTHER, BC ==
[~2017-01-31] MED LIST changes: +GADAVIST IV PRN
--- NOTE | 2017-01-31 12:43 | DIAGNOSTIC IMAGING REPORT ---
LUMBAR SPINE COMBINATION CLINICAL HISTORY: 71 years-old Female presenting with HX BREAST CA, right-sided flank pain radiating to the right leg for years, increased over one month, history of multiple falls. TECHNIQUE: Multisequence, multiplanar MR imaging of the lumbar spine was performed before and after the administration of intravenous contrast. IV contrast: 13 mL of Gadavist. COMPARISON: CT from 01/14/2017. FINDINGS: Localizer images: Unremarkable. Normal lumbar lordosis. Vertebral bodies maintain normal height and alignment. Endplate bone marrow edema with associated enhancement noted anteriorly at the L4-5 disc space without significant fluid signal intensity within the L4-5 disc. This is likely degenerative in etiology. At this level there is a prominent disc protrusion with cranial migration. Additionally there is an extruded fragment immediately cranial to the protrusion. The extruded fragment measures 12 x 9 x 11 mm and significantly effaces the right lateral recess at L4. This exerts mass effect on the transiting right L4 nerve root as well as resulting in anterolateral effacement of the thecal sac. Immediately inferior to this, the protrusion similarly results in mass effect on the exiting right L4 nerve root. The disc bulge at L4-5 also eccentrically effaces the far lateral right neural foramen. Severe circumferential narrowing of the spinal canal at L4-5 results as well from facet arthropathy and ligamentum flavum thickening. The L1-2 and L2-3 levels are essentially normal. The L3-4 level demonstrates minimal disc bulge and facet arthropathy resulting in mild right neural foraminal narrowing. The L5-S1 level demonstrates facet arthropathy, which results in mild right and moderate left neural foraminal narrowing. The spinal cord in setting good position at L1. Cauda equina normal in morphology apart from crowding at the L4-5 level. Paraspinal soft tissues within normal limits. No paraspinal inflammatory changes. Nonspecific subcutaneous edema noted in the back. IMPRESSION: 1. Focal degenerative change at L4-5 with a disc protrusion resulting in severe spinal stenosis. This raises concern for cauda equina impingement. Correlate clinically. Additionally at this level, an extruded fragment at L4 results in mass effect on the transiting right L4 nerve root. Please see further details above. 2. Bony edema at L4-5 endplate anteriorly likely degenerative in etiology. The report will be called/faxed according to standard departmental protocol. Electronically signed by: John Hammonds M.D. 01/31/2017 12:41 PM Dictated Date/Time: 01/31/2017 12:33 PM
== END | disposition home or self-care (01) ==
LOC: C.MRI 10:34
PROVIDERS: ATTEND Physical Medicine & Rehabilitation
DX: M48.061 Spinal stenosis, lumbar region without neurogenic claudication (principal); Z85.3 Personal history of malignant neoplasm of breast; M54.31 Sciatica, right side

== ENCOUNTER → 2017-03-08 | Outpatient (CLI) | payer OTHER, BC ==
[~2017-03-08] MED LIST changes: +FRS/40 PO; -GADAVIST IV PRN; +SPIR100T PO
[2017-03-08 13:13] VITALS: BP 112/60; PULSE 91; TEMP 37; O2SAT 95
--- NOTE | 2017-03-08 15:30 | Radiation Oncology Follow-Up ---
Radiation Oncology Follow-Up Date of Visit Mar 08, 2017. 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 She received 5130 cGy utilizing hypo-fractionation. Last Edited By: Manda Akers on Sep 07, 2016 15:11 History of Present Illness Ms. Hebert presented with a palpable left breast mass. She did have a screening mammogram in December 2015 which did not reveal any evidence of malignancy in either breast. After she did note a palpable left breast mass she did have a targeted left digital diagnostic mammogram and ultrasonography on on 04/05/2016 which confirmed a irregular mass measuring 2.5 cm in the left breast in the 2 o'clock position that was described as hypoechoic by ultrasound ; there was no evidence of lymphadenopathy. The patient underwent a targeted ultrasound guided biopsy of the left breast on 04/18/2016 which revealed invasive ductal carcinoma that was grade 2 with no evidence of lymphovascular space invasion; the tumor was estrogen receptor positive, progesterone receptor negative and HER-2 negative. The patient underwent a lumpectomy and sentinel lymph node biopsy on 05/23/2016 which revealed invasive mammary carcinoma that was grade 3 with ductal carcinoma in situ present as well. The tumor was 2.5 cm in greatest dimension. There was no evidence of lymphovascular space invasion or perineural invasion. The margins were negative for both invasive carcinoma and ductal carcinoma in situ and the closest margin was 1 mm for ductal carcinoma in situ. One sentinel lymph node was excised and was negative for metastatic carcinoma. The patient was staged as pT2N0. The patient was seen in consultation by Dr. Clay Sarmiento for medical oncology to discuss the role of systemic chemotherapy and anterior hormonal therapy. Dr. Sarmiento advised against chemotherapy due to the patient's low platelet count and history of cirrhosis. Dr. Sarmiento has recommended consideration for anti- hormonal therapy. We are now seeing the patient in consultation to discuss the role of adjuvant radiation therapy. Overall, the patient is doing relatively well. She has healed up well from surgery. She has no complaints currently. She underwent a CT simulation. She was found to be a candidate for hypo- fractionation. The radiation was completed 08/09/2016. She received 5130 cGy. Interim History She's been doing well over the past 6 months. She denies any skin irritation. She'll have occasional discomfort. She has noted no masses and no change of the axilla there is been no swelling of her arm. There continues to be some mild dark discoloration of the breast. This is improving over time. Following completion of her radiation therapy she continued follow-up with Dr. Jara and had a recheck MRI of the liver. She was treated for hepatocellular carcinoma. She now has recheck MRIs every 3-4 months. She will be having another MRI next week. She denies any trouble with abdominal pain. She does have chronic back pain. She has spinal stenosis. She had been referred to a back surgeon. Due to her weight she does not qualify for surgery. She also was reviewed by pain management and they would not consider injections for her. Pain management has been through her primary care physician. Allergies Coded Allergies: QUINCY Inhibitors (Verified Allergy, Severe, caugh, 01/14/17) Adhesives (Verified Allergy, Intermediate, rash, 01/14/17) Aminoglycosides (Verified Allergy, Intermediate, rash, 01/14/17) Bacitracin (Verified Allergy, Intermediate, rash, 01/14/17) Levofloxacin (Verified Allergy, Unknown, CHEST PAIN, 01/14/17) TABLETS Neomycin (Verified Allergy, Unknown, RED RASH, 01/14/17) CAN USE POLYMYCIN Home Medications Scheduled Calcium/Vitamin D (Os-Molina 500 Plus D), 2 TAB PO DAILY Clobetasol Propionate (Clobetasol Propionate), 1 APPLN TOP PRN Cyanocobalamin (Vitamin B12), 3,000 MCG PO QAM Dicyclomine Hcl (Bentyl), 10 MG PO BID Escitalopram (Lexapro), 10 MG PO DAILY Furosemide (Lasix), 40 MG PO DAILY Gabapentin (Neurontin), 800 MG PO BID Insulin Glargine (Lantus Solostar), 65 UNITS SC HS Omeprazole (Prilosec), 20 MG PO BID Propranolol (Inderal), 10 MG PO TID Spironolactone (Aldactone), 100 MG PO DAILY Tamoxifen Citrate (Tamoxifen Citrate), 10 MG PO DAILY Scheduled PRN Acyclovir (Zovirax), 200 MG PO UD PRN for COLD SORES Alprazolam (Xanax), 0.25 MG PO TID PRN for SLEEP/ANXIETY Fexofenadine-Pseudoephedrine (Emmy-D 12 Hour Allergy), 1 TAB PO BID PRN for PRN Insulin Aspart (Novolog Flexpen), 1 DOSE SC TIDM PRN for SLIDING SCALE Polyethylene Glycol 3350 (Miralax), 17 GM PO DAILY PRN for Constipation Review of Systems Gastrointestinal: GI Comments: loose stools all the time / on metformin Oral: Other Oral Symptoms: "difficulty swallowing and feel like I am choking all the time " Respiratory: Symptoms: SOB With Exertion, Productive Cough Sputum Character: yellow Urinary: Symptoms: Incontinence Skin: Other Skin Symptoms: " my bottom is sore from incontinence " Breast: Right Upper Arm Measurement: 38.5 Right Mid Arm Measurement: 27.0 Right Wrist Measurement: 17.5 Left Upper Arm Measurement: 40.0 Left Mid Arm Measurement: 26.0 Left Wrist Measurement: 17.2 Arm Dominence: Right Patient Cosmetic Evaluation: Good Staff Cosmetic Evalaluation: Good Physical Exam Vital Signs Date Time Temp Pulse Resp B/P (MAP) Pulse Ox O2 Delivery O2 Flow Rate FiO2 03/08/17 13:13 37.0 91 20 112/60 95 Fatigue: None General Appearance: + obese Eyes: normal inspection, EOMI ENT: normal ENT inspection, hearing grossly normal Neck: no adenopathy, thyroid normal Respiratory/Chest: lungs clear, no respiratory distress, no accessory muscle use Breast: Breast examination reveals well-healed incisions of the left breast. There are no masses or tenderness and no axillary adenopathy. There is resolving hyperpigmentation. There are no changes of the axilla. Using the [place] score cosmesis she has a good outcome. The right breast showed no masses or tenderness and no axillary adenopathy. Cardiovascular: regular rate, rhythm, no gallop, no murmur Abdomen: non tender Extremities: no pedal edema Neurologic/Psychiatric: no motor/sensory deficits, alert, normal mood/affect Skin: warm/dry Pain Management Patient Reports Pain: No Side: Bilateral Patient Preferred Pain Scale: 0 - 10 Initial Pain Intensity: 0.0 Pain Management Plan Pain management is through the primary care physician. Laboratory Laboratory Results: not applicable Pathology Pathology Results: not applicable Imaging Imaging Studies: were reviewed, and pertinent findings noted below Imaging Comments Patient: CHRISTY HEBERT Rec: [id number] Address1: [address] Address[address]: [place] [address] ID: [id number] Date: 1945 Sex: F Ref Phy: Srinivas Ramon M.D. Att Phy: Srinivas Ramon M.D. Karla Phy: Connor Valdez M.D. Inter Phy: Mica Zacarias MD [place] Zip: [place] [address] SC: C.MAMM Report #: [id number] Sandwich Counter Attendant: ISHAAN Diagnosis: HX BREAST CA, DO BILATERAL Service Date: 01/16/17 MNE: [id number] Ordering Dr: Srinivas Ramon M.D. CC: Srinivas Ramon M.D. CONF: DICTATED BY: Mica Zacarias MD MAMMOGRAPHY REPORT BILATERAL DIGITAL DIAGNOSTIC MAMMOGRAM TOMOSYNTHESIS WITH CAD: 01/16/2017 CLINICAL HISTORY: 71-year-old woman with a personal history of left breast cancer status post breast conservation treatment. She presents for first follow -up in the left breast to establish new baseline, and also due for annual right mammography. TECHNIQUE: Bilateral CC and MLO 2-D and tomosynthesis images, spot magnification left CC and ML views as well as left cleavage views were obtained. The current study was also evaluated with the use of computer aided detection (CAD). COMPARISON: Comparison is made to exams dated: 05/22/2016 specimen, 05/22/2016 localization, 04/18/2016 ultrasound biopsy, 04/18/2016 mammogram, 04/05/2016 ultrasound, and 04/05/2016 mammogram - [facility]. BREAST COMPOSITION: The tissue of both breasts is heterogeneously dense, which may obscure small masses. FINDINGS: A linear scar marker overlies the lateral anterior left breast. There is expected architectural distortion in the approximate 2:00 to 3:00 anterior left breast denoting the lumpectomy bed. There are stable groupings of benign-appearing coarse heterogeneous microcalcifications and scattered benign rim calcifications in the left breast. Mild diffuse trabecular edema and skin thickening likely related to prior treatment. There are also stable groupings of coarse heterogeneous microcalcifications and benign rim calcifications in the right breast. No new suspicious mass, focal area of unexpected distortion, developing asymmetry or new suspicious calcifications are identified bilaterally. Recommend another close follow-up left diagnostic tomosynthesis mammogram and possible ultrasound to ensure stability after treatment in 6 more months. Recommend routine right mammography in 1 year. IMPRESSION: ACR-BI-RADS CATEGORY 3: PROBABLY BENIGN 1. Expected posttreatment changes in the left breast, without definite mammographic evidence of malignancy. Recommend follow-up left diagnostic tomosynthesis mammograms and possible ultrasound to ensure stability in 6 months. 2. Stable mammographic appearance of the right breast, without mammographic evidence of malignancy. Recommend 12 month routine screening on the right. These results and recommendations were discussed with the patient at the time of the exam. Approximately 10% of breast cancers are not detected with mammography. A negative mammographic report should not delay biopsy if a clinically suggestive mass is present. Mica Zacarias M.D. ay/:01/16/2017 13:18:42 Process Control Specialist: Kristal GILBERT)(Faustina), [facility] letter sent: Follow Up Recommended 3 BI-RADS Code: ACR-BI-RADS Category 3: Probably Benign Dictated by: Mica Zacarias MD Signed by: Mica Zacarias MD Assessment & Plan Continue with scheduled mammography. Continue follow-up with her primary care physician and gastroenterology. She is due for recheck MRI next week. Pain management is through the family physician. She did not qualify for surgery or injections. She was seen and examined by Dr. Sarmiento. We asked her to return to our office in 1 year. She may call if she has any questions or concerns in regards to radiation therapy to her breast. Assessment & Plan (Attending) ADDENDUM: I agree with note created by Manda Akers PA-C. I reviewed the patient's chart and information with her. I have examined and evaluated the patient. I reviewed relevant clinical information and answered the patient's and /or family's questions. SANDWICH COUNTER ATTENDANT Total Time In Follow-Up I spent 20 minutes speaking to the patient and performing examination. I spent 15 minutes reviewing information and completing this note. Total Time (Attending) In Follow-Up I spent 15 minutes examining and counseling the patient. SANDWICH COUNTER ATTENDANT Copy To Connor Valdez M.D. Problem Qualifiers (1) Breast cancer: Breast location: upper outer quadrant of breast Estrogen receptor status: positive Patient sex: female Laterality: left Qualified Codes: C50.412 - Malignant neoplasm of upper-outer quadrant of left female breast; Z17.0 - Estrogen receptor positive status [ER+]
== END | disposition home or self-care (01) ==
LOC: C.ONC 12:50
PROVIDERS: ATTEND Physician Assistant Medical
DX: Z08 Encounter for follow-up examination after completed treatment for malignant neoplasm (principal); Z92.3 Personal history of irradiation; Z85.3 Personal history of malignant neoplasm of breast

== ENCOUNTER → 2017-04-03 | Outpatient (CLI) | payer OTHER, BC ==
[~2017-04-03] MED LIST changes: +GADOXETATE DISODIUM (NON-WT BASED PROCEDURE) IV PRN
--- NOTE | 2017-04-03 14:34 | DIAGNOSTIC IMAGING REPORT ---
LIVER COMBO CLINICAL HISTORY: 71 years-old Female presenting with C22.0 follow-up liver carcinoma. TECHNIQUE: Multisequence, multiplanar MR imaging of the abdomen was performed before and after the administration of intravenous contrast. IV contrast: 10 mL of Eovist. COMPARISON: 09/08/[address] from 01/14/2017. FINDINGS: Localizer images: Unremarkable. Lung bases: Right basilar nodularity may be present. Normal heart size. Small left pleural effusion unchanged. Liver: Nodular contour of the liver with relative atrophy of the right hepatic lobe and hypertrophy of the left hepatic lobe with fine T2 reticulations, compatible with cirrhosis. No hepatic steatosis. No focal lesion is apparent on T2-weighted imaging, diffusion weighted imaging, or postcontrast. Patent hepatic vasculature. Biliary: No intrahepatic or extrahepatic biliary ductal dilatation. Gallbladder surgically absent. Pancreas: Mild parenchymal atrophy. Spleen: Enlarged measuring over 14 cm in sagittal dimension. T2 hyperintense poorly enhancing lesion in the spleen, either lymphangioma or hemangioma. Adrenal glands: Normal. Kidneys and ureters: Normal. No hydronephrosis. Bowel: Normal. No bowel obstruction. Peritoneal cavity: Moderate volume simple appearing ascites unchanged from prior. Lymph nodes: No enlarged lymph nodes in the abdomen. Vasculature: Aorta and IVC patent and normal in caliber. Abdominal wall: Normal. Musculoskeletal: Normal. IMPRESSION: 1. No hepatic lesion is visualized allowing for image quality. Subsequent examinations can be performed with Gadavist. 2. Cirrhosis with portal hypertension evidenced by splenomegaly and ascites. 3. Persistent left pleural effusion. 4. Right basilar nodularity. This may be due to atelectasis. Electronically signed by: John Hammonds M.D. 04/03/2017 2:33 PM Dictated Date/Time: 04/03/2017 2:07 PM
== END | disposition home or self-care (01) ==
LOC: C.MRI 12:23
PROVIDERS: ATTEND Nurse Practitioner Family
DX: C22.0 Liver cell carcinoma (principal)

== ENCOUNTER 2017-05-06 16:42 | Emergency (ER) | payer OTHER, BC ==
[~2017-05-06] VITALS: Ht 157.5 cm; Wt 139.3 kg
[~2017-05-06 16:42] MED LIST changes: -FERR1TAB23 PO; -GADOXETATE DISODIUM (NON-WT BASED PROCEDURE) IV PRN; -PROBCAP PO; -PSYL0.524 PO; -TRAZ50TA35 PO
[2017-05-06 16:46] VITALS: TEMP 36.8; Ht 157.5 cm; Wt 139.3 kg
--- NOTE | 2017-05-06 17:14 | EMERGENCY ROOM VISIT NOTE ---
History Report prepared by Laurence: Floridalma Munguia Under the Supervision of: Dr. Mark Regan M.D. First contact with patient: 16:49 Chief Complaint: ABDOMINAL PAIN Stated Complaint: STOMACH PAIN, DISTENDED Nursing Triage Summary: Pt states, "I fell a month ago and I've a pain under my left breast since then continously. I had the pain before, but not all the time. This morning I was really swollen. When I eat it seems to hurt more, within 15-30 mins I'm in the bathroom after I eat. I have diarrhea and constipation." History of Present Illness The patient is a 71 year old female who presents to the Emergency Room with complaints of intermittent central abdominal pain beginning a month ago. The patient states she fell about a month ago. Since her fall, she has had this pain intermittently. The patients notes some shortness of breath which is baseline for her. She denies any chest pain, nausea, vomiting, fever, or diarrhea. The patient notes blood in her stool when she wipes which she thinks is from her hemorrhoids. The patient has a history of diabetes, sleep apnea, uterine cancer, breast cancer, liver cancer, and a cholecystectomy. The patient is on tamoxifen. The patient is not on any blood thinners. She reports she has not been taking any of her medications as prescribed. Source of History: patient Onset: a month ago Position: abdomen Quality: other (pain) Timing: intermittent Associated Symptoms: + SOB, + abdominal pain, No chest pain, No nausea, No vomiting, No diarrhea Review of Systems See HPI for pertinent positives and negatives. A total of ten systems were reviewed and were otherwise negative. Past Medical & Surgical Medical Problems: (1) Breast cancer (2) Diabetes (3) External hemorrhoid (4) Liver cancer (5) Uterine cancer Family History Patient reports no known family medical history. Social History Smoking Status: Never Smoker Drug Use: none Housing Status: lives alone Current/Historical Medications Scheduled Calcium/Vitamin D (Os-Molina 500 Plus D), 2 TAB PO DAILY Cyanocobalamin (Vitamin B12), 3,000 MCG PO QAM Dicyclomine Hcl (Bentyl), 10 MG PO BID Escitalopram (Lexapro), 10 MG PO DAILY Furosemide (Lasix), 40 MG PO DAILY Gabapentin (Neurontin), 800 MG PO BID Insulin Glargine (Lantus Solostar), 65 UNITS SC HS Omeprazole (Prilosec), 20 MG PO BID Propranolol (Inderal), 10 MG PO TID Spironolactone (Aldactone), 100 MG PO DAILY Tamoxifen Citrate (Tamoxifen Citrate), 10 MG PO DAILY Scheduled PRN Acyclovir (Zovirax), 200 MG PO UD PRN for COLD SORES Alprazolam (Xanax), 0.25 MG PO TID PRN for SLEEP/ANXIETY Fexofenadine-Pseudoephedrine (Emmy-D 12 Hour Allergy), 1 TAB PO BID PRN for PRN Insulin Aspart (Novolog Flexpen), 1 DOSE SC TIDM PRN for SLIDING SCALE Allergies Coded Allergies: QUINCY Inhibitors (Verified Allergy, Severe, caugh, 01/14/17) Adhesives (Verified Allergy, Intermediate, rash, 01/14/17) Aminoglycosides (Verified Allergy, Intermediate, rash, 01/14/17) Bacitracin (Verified Allergy, Intermediate, rash, 01/14/17) Levofloxacin (Verified Allergy, Unknown, CHEST PAIN, 01/14/17) TABLETS Neomycin (Verified Allergy, Unknown, RED RASH, 01/14/17) CAN USE POLYMYCIN Physical Exam Vital Signs Date Time Temp Pulse Resp B/P (MAP) Pulse Ox O2 Delivery O2 Flow Rate FiO2 05/06/17 19:32 84 20 133/73 97 Room Air 05/06/17 18:22 82 18 139/68 97 Room Air 05/06/17 17:19 69 05/06/17 16:46 36.8 85 18 144/86 95 Room Air Physical Exam Physical Exam GENERAL: She is oriented to person, place, and time. She appears well- developed and well-nourished. She does not appear distressed. ____ HENT: Exam performed. Head: Normocephalic and atraumatic. Right Ear: External ear normal. No mastoid tenderness. Left Ear: External ear normal. No mastoid tenderness. Mouth/Throat: The oropharynx is clear and moist. No trismus in the jaw. No dental abscesses or uvula swelling. No oropharyngeal exudate or tonsillar abscesses. ____ EYES: Conjunctivae and EOM are normal. Pupils are equal, round, and reactive to light. Right eye exhibits no discharge. Left eye exhibits no discharge. No scleral icterus. ____ NECK: Normal range of motion. Neck supple. No JVD present. No spinous process tenderness present. No carotid bruit present. No rigidity. No tracheal deviation and normal range of motion present. No Brudzinski's sign and no Kernig 's sign noted. ____ CV: Normal rate, regular rhythm, normal heart sounds and intact distal pulses. There is no peripheral edema. Palpable radial pulses bue. ____ PULM/CHEST: Effort normal and breath sounds normal. No respiratory distress. No stridor. She has no wheezes. She has no rales. Chest wall tenderness of left anterior chest. Chest Wall: She exhibits no tenderness. ____ ABD: The abdomen is obese limiting exam. No pain on palpation of the abdomen. Abdomen is soft. No guarding or rigidity. No pain over McBurney's point. Read sign negative. No rebound tenderness. Rovsing negative. MUSC/SKEL: Normal range of motion. There is no peripheral edema, tenderness or deformity. LYMPH: No cervical adenopathy. ____ NEURO: She is alert and oriented to person, place, and time. She has normal strength. No cranial nerve deficit or sensory deficit. Coordination and gait normal. GCS eye subscore is 4. GCS verbal subscore is 5. GCS motor subscore is 6. Cerebellar tests wnl. ____ SKIN: Skin is warm and dry. She is not diaphoretic. ____ PSYCH: She has a normal mood and affect. Her behavior is normal. Judgment and thought content normal. ____ Medical Decision & Procedures ER Provider Diagnostic Interpretation: Radiology results as stated below per my review and radiologist interpretation: PA CHEST WITH ABDOMINAL SERIES FINDINGS: A PA chest radiograph is compared to chest x-ray and chest CT dated 01/14/2017. The examination is degraded by patient rotation. The heart is enlarged and there is atherosclerotic calcification of the thoracic aorta. The pulmonary vasculature is noncongested. Chronic interstitial thickening is similar to previous. There is mild elevation of the right hemidiaphragm with bibasilar atelectasis. The lungs and pleural spaces are otherwise clear. No pneumothorax is seen. The skeletal structures are osteopenic. The bony thorax is grossly intact. Supine and erect abdominal radiographs are correlated with abdominal CT dated 01/14/2017. The examination is degraded by large body habitus. Cholecystectomy clips are seen in the right upper quadrant. There is a nonobstructed abdominal bowel gas pattern. No evidence of intraperitoneal free air is seen. There are no abnormal abdominal calcifications. The lumbosacral spine and bony pelvis appear intact. There is moderate lumbosacral spondylosis as well as mild scoliosis. IMPRESSION: 1. Cardiomegaly with no acute cardiopulmonary abnormality. 2. Nonobstructed abdominal bowel gas pattern. Electronically signed by: Paulo Pan M.D. Laboratory Results 05/06/17 17:16 Red Blood Count 3.85, Mean Corpuscular Volume 97.4, Mean Corpuscular Hemoglobin 32.2, Mean Corpuscular Hemoglobin Concent 33.1, Mean Platelet Volume 10.5, Neutrophils (%) (Auto) 70.4, Lymphocytes (%) (Auto) 18.3, Monocytes (%) (Auto) 9.5, Eosinophils (%) (Auto) 1.4, Basophils (%) (Auto) 0.2, Neutrophils # (Auto) 3.03, Lymphocytes # (Auto) 0.79, Monocytes # (Auto) 0.41, Eosinophils # (Auto) 0.06, Basophils # (Auto) 0.01 05/06/17 17:16 Test 05/06/17 17:16 05/06/17 17:18 05/06/17 18:30 White Blood Count 4.31 K/uL (4.8-10.8) Red Blood Count 3.85 M/uL (4.2-5.4) Hemoglobin 12.4 g/dL (12.0-16.0) Hematocrit 37.5 % (37-47) Mean Corpuscular Volume 97.4 fL (80-100) Mean Corpuscular Hemoglobin 32.2 pg (25-34) Mean Corpuscular Hemoglobin Concent 33.1 g/dl (32-36) Platelet Count 94 K/uL (130-400) Mean Platelet Volume 10.5 fL (7.4-10.4) Neutrophils (%) (Auto) 70.4 % Lymphocytes (%) (Auto) 18.3 % Monocytes (%) (Auto) 9.5 % Eosinophils (%) (Auto) 1.4 % Basophils (%) (Auto) 0.2 % Neutrophils # (Auto) 3.03 K/uL (1.4-6.5) Lymphocytes # (Auto) 0.79 K/uL (1.2-3.4) Monocytes # (Auto) 0.41 K/uL (0.11-0.59) Eosinophils # (Auto) 0.06 K/uL (0-0.5) Basophils # (Auto) 0.01 K/uL (0-0.2) RDW Standard Deviation 54.2 fL (36.4-46.3) RDW Coefficient of Variation 15.4 % (11.5-14.5) Immature Granulocyte % (Auto) 0.2 % Immature Granulocyte # (Auto) 0.01 K/uL (0.00-0.02) Prothrombin Time 14.7 SECONDS (9.0-12.0) Prothromb Time International Ratio 1.4 (0.9-1.1) Activated Partial Thromboplast Time 26.6 SECONDS (21.0-31.0) Partial Thromboplastin Ratio 1.0 Anion Gap 7.0 mmol/L (3-11) Est Creatinine Clear Calc Drug Dose 99.9 ml/min Estimated GFR () 99.0 Estimated GFR (Non- 85.4 BUN/Creatinine Ratio 15.3 (10-20) Calcium Level 9.2 mg/dl (8.5-10.1) Total Bilirubin 2.3 mg/dl (0.2-1) Aspartate Amino Transf (AST/SGOT) 36 U/L (15-37) Alanine Aminotransferase (ALT/SGPT) 19 U/L (12-78) Alkaline Phosphatase 94 U/L (45-117) Troponin I < 0.015 ng/ml (0-0.045) Total Protein 6.2 gm/dl (6.4-8.2) Albumin 2.2 gm/dl (3.4-5.0) Globulin 4.0 gm/dl (2.5-4.0) Albumin/Globulin Ratio 0.5 (0.9-2) Lipase 153 U/L (73-393) Lactic Acid Level 2.4 mmol/L (0.4-2.0) Urine Color DK YELLOW Urine Appearance CLOUDY (CLEAR) Urine pH 6.0 (4.5-7.5) Urine Specific [place] 1.027 (1.000-1.030) Urine Protein NEG (NEG) Urine Glucose (UA) NEG (NEG) Urine Ketones TRACE (NEG) Urine Occult Blood NEG (NEG) Urine Nitrite POS (NEG) Urine Bilirubin NEG (NEG) Urine Urobilinogen POS (NEG) Urine Leukocyte Esterase TRACE (NEG) Urine WBC (Auto) 1-5 /hpf (0-5) Urine RBC (Auto) 5-10 /hpf (0-4) Urine Hyaline Casts (Auto) 0 /lpf (0-5) Urine Epithelial Cells (Auto) >30 /lpf (0-5) Urine Bacteria (Auto) 1+ (NEG) Urine Crystals CALCIUM OXALATE (NONE Urine Pathogenic Casts /lpf (0) Laboratory results reviewed by [facility] ED Course 1651: The patient was evaluated in room B12B. A complete history and physical exam was performed. 1908: Discussed the patient's case Dr. CallejasGastroenterology. He agrees given the patients fall a month ago with no fever and no pain on palpation of abdomen , there is no need for emergent paracentesis. He thinks the patient should follow up as an outpatient with Dr. Jara. 1912:Vital signs are stable, serial abdominal exams are within normal limits, labs within normal limits with the exception of mild elevated lactic acid of 2.4. Bedside point of care ultrasound showed ascites. The patient has a follow up with her liver specialist with Dr. Jara tomorrow. The patient was encouraged to restart her medications.DISCHARGE - Plan of care discussed with family and questions answered. The family was given both verbal and printed discharge instructions. The family verbalized understanding and ability to comply. The family is to seek outpatient follow up as noted in the discharge instructions. The family verbalized understanding and ability to comply. The family is discharged in stable condition. The family was instructed to return for worsening symptoms. Medical Decision Vital signs are stable, serial abdominal exams are within normal limits, labs within normal limits with the exception of mild elevated lactic acid of 2.4. Bedside point of care ultrasound showed ascites. Patient states she has never had paracentesis done before. Very little concern for SBP, given the patient has had not had fever, not having abdominal pain on palpation, her symptoms occurred after fall 1 month ago. Discussed the patient's case Dr. Callejas Gastroenterdee. He agrees given the patients fall a month ago with no fever and no pain on palpation of abdomen, there is no need for emergent paracentesis. He thinks the patient should follow up as an outpatient with Dr. Jara. Medication Reconcilliation Current Medication List: was personally reviewed by me Blood Pressure Screening Patient's blood pressure: Elevated blood pressure Blood pressure disposition: Elevated BP felt to be situational Consults Time Called: 1899 Consulting Physician: Dr. CallejasGastroenterology Returned Call: 1908 Discussed the patient's case Dr. Alvarez. He agrees given the patients fall a month ago with no fever and no pain on palpation of abdomen, there is no need for emergent paracentesis. He thinks the patient should follow up as an outpatient with Dr. Jara. Impression Primary Impression: Fall Additional Impression: Abdominal pain Scribe Attestation The scribe's documentation has been prepared under my direction and personally reviewed by me in its entirety. I confirm that the note above accurately reflects all work, treatment, procedures, and medical decision making performed by me. The chart was completed utilizing [employer] Speech voice recognition software. Grammatical errors, random word insertions, pronoun errors, and incomplete sentences are an occasional consequence of this system due to software limitations, ambient noise, and hardware issues. Any formal questions or concerns about the content, text, or information contained within the body of this dictation should be directly addressed to the physician for clarification. Departure Information Dispostion Home / Self-Care Referrals Connor Valdez M.D. (PCP) Forms Call Back Authorization, HOME CARE DOCUMENTATION FORM, IMPORTANT VISIT INFORMATION Patient Instructions Abdominal Pain - [facility], [facility], [facility] Additional Instructions Return to the emergency department if he developed fever greater than 100.4, vomiting, no dysuria skin color turning yellow, develop increasing pain, lose consciousness. Problem Qualifiers
[2017-05-06 17:55] LABS: INR 1.4 (0.9-1.1); PTT PATIENT 26.6 SECONDS (21.0-31.0)
[2017-05-06 18:00] LABS: ALBUMIN 2.2 gm/dl (3.4-5.0); ALT/SGPT 19 U/L (12-78); BLOOD UREA NITROGEN 11 mg/dl (7-18); CALCIUM 9.2 mg/dl (8.5-10.1); CARBON DIOXIDE 29 mmol/L (21-32); CREATININE 0.72 mg/dl (0.60-1.20); GLUCOSE 220 mg/dl (70-99); LIPASE 153 U/L (73-393); POTASSIUM 3.5 mmol/L (3.5-5.1); SODIUM 139 mmol/L (136-145)
[2017-05-06 18:05] LABS: ALKALINE PHOSPHATASE 94 U/L (45-117); AST/SGOT 36 U/L (15-37); TOTAL PROTEIN 6.2 gm/dl (6.4-8.2)
--- NOTE | 2017-05-06 18:05 | DIAGNOSTIC IMAGING REPORT ---
PA CHEST WITH ABDOMINAL SERIES CLINICAL HISTORY: Fall one month ago. Generalized abdominal pain. FINDINGS: A PA chest radiograph is compared to chest x-ray and chest CT dated 01/14/2017. The examination is degraded by patient rotation. The heart is enlarged and there is atherosclerotic calcification of the thoracic aorta. The pulmonary vasculature is noncongested. Chronic interstitial thickening is similar to previous. There is mild elevation of the right hemidiaphragm with bibasilar atelectasis. The lungs and pleural spaces are otherwise clear. No pneumothorax is seen. The skeletal structures are osteopenic. The bony thorax is grossly intact. Supine and erect abdominal radiographs are correlated with abdominal CT dated 01/14/2017. The examination is degraded by large body habitus. Cholecystectomy clips are seen in the right upper quadrant. There is a nonobstructed abdominal bowel gas pattern. No evidence of intraperitoneal free air is seen. There are no abnormal abdominal calcifications. The lumbosacral spine and bony pelvis appear intact. There is moderate lumbosacral spondylosis as well as mild scoliosis. IMPRESSION: 1. Cardiomegaly with no acute cardiopulmonary abnormality. 2. Nonobstructed abdominal bowel gas pattern. Electronically signed by: Paulo Pan M.D. 05/06/2017 6:04 PM Dictated Date/Time: 05/06/2017 6:02 PM
[2017-05-06 18:18] LABS: HEMATOCRIT 37.5 % (37-47); HEMOGLOBIN 12.4 g/dL (12.0-16.0); MEAN CELL VOLUME 97.4 fL (80-100); MEAN CORPUSCULAR HEMOGLOBIN 32.2 pg (25-34); MEAN CORPUSCULAR HGB CONC 33.1 g/dl (32-36); MEAN PLATELET VOLUME 10.5 fL (7.4-10.4); PLATELET COUNT 94 K/uL (130-400); RED CELL DISTRIBUTION WIDTH CV 15.4 % (11.5-14.5); RED CELL DISTRIBUTION WIDTH SD 54.2 fL (36.4-46.3); WHITE BLOOD COUNT 4.31 K/uL (4.8-10.8)
[2017-05-06 18:44] LABS: BASO % 0.2 %; BASO ABS # 0.01 K/uL (0-0.2); EOS % 1.4 %; EOS ABS # 0.06 K/uL (0-0.5); IG# 0.01 K/uL (0.00-0.02); LYMPH % 18.3 %; LYMPH ABS # 0.79 K/uL (1.2-3.4); MONO % 9.5 %; MONO ABS # 0.41 K/uL (0.11-0.59); NEUT % 70.4 %; NEUT ABS # 3.03 K/uL (1.4-6.5)
[2017-05-06 19:32] VITALS: BP 133/73; PULSE 84; O2SAT 97
== END 2017-05-06 19:49 | disposition home or self-care (01) ==
LOC: C.EDB 16:44
DX: R10.9 Unspecified abdominal pain (principal); W19.XXXA Unspecified fall, initial encounter; R03.0 Elevated blood-pressure reading, without diagnosis of hypertension; R74.0 Nonspecific elevation of levels of transaminase and lactic acid dehydrogenase [LDH]; R06.02 Shortness of breath; E11.9 Type 2 diabetes mellitus without complications; K92.1 Melena; K64.9 Unspecified hemorrhoids; Z90.49 Acquired absence of other specified parts of digestive tract; Z79.4 Long term (current) use of insulin; Z85.3 Personal history of malignant neoplasm of breast; Z88.8 Allergy status to other drugs, medicaments and biological substances; Z91.048 Other nonmedicinal substance allergy status; Z88.1 Allergy status to other antibiotic agents

== ENCOUNTER → 2017-05-18 | Outpatient (CLI) | payer OTHER, BC ==
[~2017-05-18] MED LIST changes: -CLBPO15 TOP; +OPTIRAY 320 IV PRN; -POLY335019 PO
--- NOTE | 2017-05-18 11:43 | DIAGNOSTIC IMAGING REPORT ---
LIVER (ABDOMEN) COMBO CLINICAL HISTORY: 71 years-old Female presenting with K70.30 cirrhosis. TECHNIQUE: Multidetector CT of the abdomen was performed before and after the administration of intravenous contrast. IV contrast: 94 mL of Optiray 320. A dose lowering technique was used consistent with the principles of ALARA (as low as reasonably achievable). COMPARISON: MR from 04/03/2017. CT DOSE (mGy.cm): The estimated cumulative dose is 4054.75 mGy.cm. 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 Lung bases: Right middle and lower lobe and bandlike consolidation likely atelectasis or scarring. This is unchanged from prior CT. Multichamber enlargement of the heart. Interval resolution of the left pleural effusion. Liver: Normal morphology. Density consistent with hepatic steatosis. 2 subcentimeter foci demonstrate arterial hyperenhancement within segment 4A/8 (series 5 images 75 and 85) disease. There is no convincing washout in these regions on delayed phase allowing for heterogeneity of liver parenchyma. Hypoenhancement on all phases in the gallbladder fossa may represent posttreatment change or prior retraction injury. Conventional hepatic arterial anatomy. Portal and hepatic veins patent. Biliary: No intrahepatic or extrahepatic biliary ductal dilatation. Gallbladder surgically absent. Pancreas: Mild parenchymal atrophy. Spleen: Enlarged. Adrenal glands: Normal. Kidneys and ureters: Hypodensity at the lower pole the left kidney likely cyst better seen on prior MR. No nephrolithiasis. No hydronephrosis. Proximal ureters normal. Bowel: Prominent duodenal diverticulum containing feculent material. No bowel obstruction. Peritoneal cavity: Moderate volume simple appearing ascites throughout the abdomen. Lymph nodes: No enlarged lymph nodes in the abdomen. Vasculature: Mesenteric, perisplenic, and paraesophageal/esophageal varices evident. Atherosclerosis of the normal caliber abdominal aorta. Abdominal wall: Anasarca. Musculoskeletal: Degenerative changes of the spine. IMPRESSION: 1. Cirrhosis with density consistent with hepatic steatosis. Two subcentimeter foci of arterial enhancement in segment 4A/8 without washout. These do not meet OPTN criteria (LI-RADS 3). Attention on follow-up. These may represent dysplastic nodules or shunts. 2. Portal hypertension evidenced by splenomegaly and varices. 3. Moderate ascites. 4. Anasarca. Electronically signed by: John Hammonds M.D. 05/18/2017 11:42 AM Dictated Date/Time: 05/18/2017 11:30 AM
== END | disposition home or self-care (01) ==
LOC: C.CTS 09:16
PROVIDERS: ATTEND Internal Medicine Gastroenterology
DX: K70.31 Alcoholic cirrhosis of liver with ascites (principal); K76.6 Portal hypertension; R16.1 Splenomegaly, not elsewhere classified; R60.1 Generalized edema

== ENCOUNTER → 2017-06-18 | Day surgery (SDC) | payer OTHER, BC ==
[2017-06-15 08:19] VITALS: Ht 157.5 cm; Wt 121.8 kg
[~2017-06-18] VITALS: Ht 157.5 cm; Wt 121.8 kg
[~2017-06-18] MED LIST changes: -DICY10CA55 PO; -ESCI10TA17 PO; +FENTANYL CITRATE INJ 50 MCG/1 ML 2 ML VIAL ONE; -FEXO5TAB2 PO; -INSDGIPEN SC; +KETAMINE HCL INJ 50 MG/ML 10 ML VIAL ONE; +LIDOCAINE HCL 2% 2 ML VIAL (20MG/ML) ONE; +MIDAZOLAM HCL 1 MG/ML 2ML VIAL ONE; -NVLGIPEN SC; -OPTIRAY 320 IV PRN; -PROP10TA7 PO; +PROPOFOL IV EMULSION 10 MG/ML 20 ML VIAL IV ONE; -TAMO10TA25 PO; +TAMO10TA9 PO
--- NOTE | 2017-06-18 10:28 | Endo History and Physical ---
History & Physical Date of Service: Jun 18, 2017. Chief Complaint: Cirrhosis of liver Referring Physician: Connor Valdez History of Present Illness Cirrhosis Past Medical History Diabetes, Fractures, Reflux, Cancer, Hypertension, Depression Past Surgical History Hx Cardiac Surgery: No Hx Internal Defibrillator: No Hx Pacemaker: No Hx Abdominal Surgery: Yes ([facility]) Hx of Implantable Prosthesis: No Hx Post-Op Nausea and Vomiting: No Hx Cancer Surgery: No (DONNELL BSO, LEFT BREAST LUMPECTOMY W/ SENTINAL NODE DISSECTION) Hx Thoracic Surgery: No Hx Orthopedic: Yes (BILATERAL ARM TENDONCYSTITIS SURGERY, L ARM SPUR REMOVAL, L THUMB SURG) Hx Urinary Tract Surgery: No Family History Polyp Social History Smoking Status: Never Smoker Hx Substance Use: No Hx Alcohol Use: No Allergies Coded Allergies: QUINCY Inhibitors (Verified Allergy, Severe, COUGH, 06/18/17) Adhesives (Verified Allergy, Intermediate, rash, 06/18/17) Aminoglycosides (Verified Allergy, Intermediate, rash, 06/18/17) Bacitracin (Verified Allergy, Intermediate, rash, 06/18/17) Levofloxacin (Verified Allergy, Unknown, CHEST PAIN, 06/18/17) TABLETS Neomycin (Verified Allergy, Unknown, RED RASH, 06/18/17) CAN USE POLYMYCIN Current Medications Reported Home Medications Medications Dose Route/Sig Max Daily Dose Days Date Category Dose Instructions Aldactone (Spironolactone) 100 Mg Tab 1 Dose PO BID 03/08/17 Reported TAKES 1.5 TAB IN AM TAKES 1 TAB IN PM Lasix (Furosemide) 40 Mg Tab 1 Dose PO BID 03/08/17 Reported TAKES 1.5 TAB IN AM TAKES 1 TAB IN PM Tamoxifen Citrate 10 Mg Tab 10 Mg PO DAILY 01/14/17 Reported Os-Molina 500 Plus D (Calcium/Vitamin D) Tab 2 Tab PO DAILY 06/22/16 Reported TAKES WITH LARGEST MEAL OF DAY Vitamin B12 (Cyanocobalamin) 1,000 Mcg Tab 3,000 Mcg PO QAM 09/22/14 Reported Prilosec (Omeprazole) 20 Mg Cap 20 Mg PO BID 02/10/13 Reported Xanax (Alprazolam) 0.5 Mg Tab 0.25 Mg PO TID PRN 02/10/13 Reported Zovirax (Acyclovir) 200 Mg Cap 200 Mg PO UD PRN 02/10/13 Reported Neurontin (Gabapentin) 800 Mg Tab 800 Mg PO BID 08/05/08 Reported Vital Signs Weight (Kilograms): 121.82 Height (Feet): 5 Height (Inches): 2 Date Time Temp Pulse Resp B/P (MAP) Pulse Ox O2 Delivery O2 Flow Rate FiO2 06/18/17 08:51 36.6 109 24 135/72 (93) 98 Room Air Physical Exam General Appearance: no apparent distress Respiratory/Chest: Auscultation: breath sounds normal Cardiovascular: Heart Auscultation: RRR Abdomen: Inspection & Palpation: soft Assessment and Plan Cirrhosis, varices - EGD, banding
--- NOTE | 2017-06-18 11:11 | Discharge Instructions ---
Endoscopy Patient Instructions Date / Procedure(s) Performed Jun 18, 2017. EGD Allergy Information Coded Allergies: QUINCY Inhibitors (Verified Allergy, Severe, COUGH, 06/18/17) Adhesives (Verified Allergy, Intermediate, rash, 06/18/17) Aminoglycosides (Verified Allergy, Intermediate, rash, 06/18/17) Bacitracin (Verified Allergy, Intermediate, rash, 06/18/17) Levofloxacin (Verified Allergy, Unknown, CHEST PAIN, 06/18/17) TABLETS Neomycin (Verified Allergy, Unknown, RED RASH, 06/18/17) CAN USE POLYMYCIN Discharge Date / Findings Jun 18, 2017. G2 varices, no gastric varices, moderate oozing portal HTN gastropathy, antral erosions Medication Instructions Twice daily Prilosec. Tramadol if needed Provider Instructions Activity Restrictions - No exercising or heavy lifting for 24 hours. - Do not drink alcohol the day of the procedure. - Do not drive a car or operate machinery until the day after the procedure. - Do not make any important decisions or sign important papers in 24 hours after the procedure. Following Day: - Return to full activity which may include returning to work/school. Diet Liquids only today, then soft food for 2-3 days Treatment For Common After Affects For mild abdominal pain, bloating, or excessive gas: - Rest - Eat lightly - Lie on right side Follow-Up Information Follow-up with Connor Valdez as scheduled Anesthesia Information What You Should Know You have had a procedure that required some medicine to reduce anxiety and discomfort. This treatment is called moderate sedation. After receiving the treatment, you may be sleepy, but you will be able to breathe on your own. The effects of the treatment may last for several hours. Follow these instructions along with Activity/Diet recommendations noted above: * Do NOT do anything where dizziness or clumsiness would be dangerous. * Rest quietly at home today, then you can be up and about tomorrow. * Have a responsible person stay with you the rest of today. * You may have had an I.V. today. If so, you may take the dressing off later today. Recommendations Call your doctor if: * Trouble breathing * Continuous vomiting for more than 24 hours * Temperature above 101 degrees * Severe abdominal pain or bloating * Pain not relieved by pain medicine ordered * There is increased drainage or redness from any incision * A large amount of rectal bleeding greater than 2-3 tablespoons. (If you had a polyp/s removed or have hemorrhoids, a small amount of blood - from the rectum is to be expected.) * You have any unanswered questions or concerns. IN THE EVENT OF A SERIOUS EMERGENCY, GO TO THE NEAREST EMERGENCY ROOM Your discharge instructions were prepared by provider Cyndee Jackson. Patient Instructions Signature Page Triny Hebert Patient (or Guardian) Signature/Date: I have read and understand the instructions given to me by my caregivers. Caregiver/RN/Doctor Signature/Date: The above-named patient and/or guardian has received patient instructions on this date. + Original Patient Signature Page (only) stays with chart. Please make copy for patient.
--- NOTE | 2017-06-18 11:17 | Anesthesiology Progress Note ---
Anesthesia Post Op Note Date & Time Jun 18, 2017 at 11:16 Vital Signs Pain Intensity: 0 Vital Signs Past 12 Hours Date Time Temp Pulse Resp B/P (MAP) Pulse Ox O2 Delivery O2 Flow Rate FiO2 06/18/17 11:01 90 24 124/72 (89) 97 Room Air 06/18/17 08:51 36.6 109 24 135/72 (93) 98 Room Air Notes Mental Status: alert / awake / arousable, participated in evaluation Pt Amnestic to Procedure: Yes Nausea / Vomiting: adequately controlled Pain: adequately controlled Airway Patency, RR, SpO2: stable & adequate BP & HR: stable & adequate Hydration State: stable & adequate Anesthetic Complications: no major complications apparent
--- NOTE | 2017-06-18 11:20 | GI REPORT ---
Procedure Date: 06/18/2017 10:29 AM Procedure: Upper GI endoscopy Indications: 1st degree variceal eradication (no prior bleeding) Medicines: See the Anesthesia note for documentation of the administered medications Complications: No immediate complications. Estimated Blood Loss: Estimated blood loss: none. Procedure: Pre-Anesthesia Assessment: - ASA Grade Assessment: III - A patient with severe systemic disease. After obtaining informed consent, the endoscope was passed under direct vision. Throughout the procedure, the patient's blood pressure, pulse, and oxygen saturations were monitored continuously. The Scope was introduced through the mouth, and advanced to the second part of duodenum. The upper GI endoscopy was accomplished without difficulty. The patient tolerated the procedure well. Findings: Three columns of non-bleeding grade II varices were found in the lower third of the esophagus, 30 to 35 cm from the incisors. No stigmata of recent bleeding were evident and no red kierra signs were present. Three bands were successfully placed with complete eradication, resulting in deflation of varices. Bleeding had stopped at the end of the procedure. There was moderate portal HTN gastropathy with mild spontaneous oozing throughout the cardia, body, and antrum. There were no gastric varices. There were three shallow erosions in the pre-pyloric antrum and pyloric channel. The duodenum was normal. Impression: - Non-bleeding grade II esophageal varices. Completely eradicated. Banded. - Portal gastropathy. No gastric varices. - Erosive antral gastritis Recommendation: - Discharge patient to home. Repeat exam in 2 weeks for further banding. Cyndee Jara M.D. Cyndee Jara MD 06/18/2017 11:20:12 AM This report has been signed electronically. Note Initiated On: 06/18/2017 10:29 AM I attest to the content of the Intraoperative Record and orders documented therein, exceptions below
[2017-06-18 11:33] VITALS: BP 144/80; PULSE 96; O2SAT 93
[2017-06-18 12:21] LABS: CALCIUM 9.7 mg/dl (8.5-10.1); CREATININE 0.8 mg/dl (0.60-1.20)
== END | disposition home or self-care (01) ==
LOC: C.GI 08:13
PROVIDERS: ATTEND Internal Medicine Gastroenterology
DX: I85.10 Secondary esophageal varices without bleeding (principal); K74.60 Unspecified cirrhosis of liver; K31.89 Other diseases of stomach and duodenum; E11.9 Type 2 diabetes mellitus without complications; G47.33 Obstructive sleep apnea (adult) (pediatric); E66.01 Morbid (severe) obesity due to excess calories; K21.9 Gastro-esophageal reflux disease without esophagitis; I10 Essential (primary) hypertension; F32.9 Major depressive disorder, single episode, unspecified; Z90.710 Acquired absence of both cervix and uterus; Z98.890 Other specified postprocedural states; Z88.1 Allergy status to other antibiotic agents; Z91.048 Other nonmedicinal substance allergy status; Z79.899 Other long term (current) drug therapy

== ENCOUNTER → 2017-07-17 | Day surgery (SDC) | payer OTHER, BC ==
[2017-07-12 12:15] VITALS: Ht 157.5 cm; Wt 120.5 kg
[~2017-07-17] VITALS: Ht 157.5 cm; Wt 120.5 kg
[~2017-07-17] MED LIST changes: +ATROPINE SULFATE 0.1 MG/ML 5ML SYR IV PRN; +EpHEDrine SULFATE INJ 50 MG/ML AMP IV PRN; -KETAMINE HCL INJ 50 MG/ML 10 ML VIAL ONE; +NovoLIN-R INSULIN PER UNIT CHARGE IV ONE; +NovoLIN-R INSULIN PER UNIT CHARGE IV STA; -PROPOFOL IV EMULSION 10 MG/ML 20 ML VIAL IV ONE; +PROPOFOL IV EMULSION 10 MG/ML 20 ML VIAL ONE; +SODIUM CHLORIDE 0.9% 500ML 500 ML IV ONE; +TRAM-10 PO
[2017-07-17 10:39] VITALS: TEMP 36.4
--- NOTE | 2017-07-17 11:26 | Endo History and Physical ---
History & Physical Date of Service: July 17, 2017. Chief Complaint: Referring Physician: Dr. Jara History of Present Illness Esophageal varices for re banding Past Medical History Diabetes, Fractures, Reflux, Cancer, Hypertension, Depression Past Surgical History Hx Cardiac Surgery: No Hx Internal Defibrillator: No Hx Pacemaker: No Hx Abdominal Surgery: Yes ([facility]) Hx Post-Op Nausea and Vomiting: No Hx Cancer Surgery: No ([facility] BSO, LEFT BREAST LUMPECTOMY W/ SENTINAL NODE DISSECTION) Hx Thoracic Surgery: No Hx Orthopedic: Yes (BILATERAL ARM TENDONCYSTITIS SURGERY, L ARM SPUR REMOVAL, L THUMB SURG) Hx Urinary Tract Surgery: No Social History Smoking Status: Never Smoker Hx Substance Use: No Hx Alcohol Use: No Allergies Coded Allergies: QUINCY Inhibitors (Verified Allergy, Severe, COUGH, 07/17/17) Adhesives (Verified Allergy, Intermediate, rash, 07/17/17) Aminoglycosides (Verified Allergy, Intermediate, rash, 07/17/17) Bacitracin (Verified Allergy, Intermediate, rash, 07/17/17) Levofloxacin (Verified Allergy, Unknown, CHEST PAIN, 07/17/17) TABLETS Neomycin (Verified Allergy, Unknown, RED RASH, 07/17/17) CAN USE POLYMYCIN Current Medications Reported Home Medications Medications Dose Route/Sig Max Daily Dose Days Date Category Dose Instructions Ultram (Tramadol HCl) 50 Mg Tab 0.5 Tab PO DAILY PRN 30 07/12/17 Reported Aldactone (Spironolactone) 100 Mg Tab 1 Dose PO BID 03/08/17 Reported TAKES 1.5 TAB IN AM TAKES 1 TAB IN PM Lasix (Furosemide) 40 Mg Tab 1 Dose PO BID 03/08/17 Reported TAKES 1.5 TAB IN AM TAKES 1 TAB IN PM Tamoxifen Citrate 10 Mg Tab 10 Mg PO DAILY 01/14/17 Reported Os-Molina 500 Plus D (Calcium/Vitamin D) Tab 2 Tab PO DAILY 06/22/16 Reported TAKES WITH LARGEST MEAL OF DAY Vitamin B12 (Cyanocobalamin) 1,000 Mcg Tab 3,000 Mcg PO QAM 09/22/14 Reported Prilosec (Omeprazole) 20 Mg Cap 20 Mg PO BID 02/10/13 Reported Xanax (Alprazolam) 0.5 Mg Tab 0.25 Mg PO TID PRN 02/10/13 Reported Zovirax (Acyclovir) 200 Mg Cap 200 Mg PO UD PRN 02/10/13 Reported Neurontin (Gabapentin) 800 Mg Tab 800 Mg PO BID 08/05/08 Reported Vital Signs Weight (Kilograms): 120.45 Height (Feet): 5 Height (Inches): 2 Date Time Temp Pulse Resp B/P (MAP) Pulse Ox O2 Delivery O2 Flow Rate FiO2 07/17/17 10:39 36.4 87 20 134/59 (84) 97 Room Air Physical Exam General Appearance: no apparent distress Respiratory/Chest: Auscultation: breath sounds normal Cardiovascular: Heart Auscultation: RRR Abdomen: Inspection & Palpation: soft, non-distended Assessment and Plan stable for EGD
--- NOTE | 2017-07-17 12:24 | GI REPORT ---
Patient Name: Triny Hebert Procedure Date: 07/17/2017 11:54 AM Date of : 1945 Admit Type: Outpatient Age: 72 Gender: Female Attending MD: Nae Frost MD Procedure: Upper GI endoscopy Providers: Nae Frost MD Referring MD: Connor Chance Irphan E. Gaslightwala, MD Indications: For therapy of esophageal varices Medicines: Monitored Anesthesia Care Complications: No immediate complications. Estimated Blood Loss: Estimated blood loss: none. Procedure: Pre-Anesthesia Assessment: - Prior to the procedure, a History and Physical was performed, and patient medications and allergies were reviewed. The patient is competent. The risks and benefits of the procedure and the sedation options and risks were discussed with the patient. All questions were answered and informed consent was obtained. Patient identification and proposed procedure were verified by the physician and the nurse in the procedure room. Mental Status Examination: alert and oriented. Airway Examination: normal oropharyngeal airway and neck mobility. Respiratory Examination: clear to auscultation. CV Examination: normal. ASA Grade Assessment: IV - A patient with severe systemic disease that is a constant threat to life. After reviewing the risks and benefits, the patient was deemed in satisfactory condition to undergo the procedure. The anesthesia plan was to use monitored anesthesia care (MAC). Immediately prior to administration of medications, the patient was re-assessed for adequacy to receive sedatives. The heart rate, respiratory rate, oxygen saturations, blood pressure, adequacy of pulmonary ventilation, and response to care were monitored throughout the procedure. The physical status of the patient was re-assessed after the procedure. After obtaining informed consent, the endoscope was passed under direct vision. Throughout the procedure, the patient's blood pressure, pulse, and oxygen saturations were monitored continuously. The scope was introduced through the mouth, and advanced to the second part of duodenum. The upper GI endoscopy was accomplished without difficulty. The patient tolerated the procedure well. Findings: Three superficial esophageal ulcers with scarring status post eradication of prior esophageal varices and no stigmata of recent bleeding were found in the lower third of the esophagus. There is no endoscopic evidence of remaining varices in the lower third of the esophagus. Moderate portal hypertensive gastropathy was found in the gastric fundus and in the gastric body. The duodenal bulb and second portion of the duodenum were normal. Impression: - Esophageal ulcers (scarring) from prior variceal banding. - No remaining esophageal varices (eradicated). - Portal hypertensive gastropathy. - Normal duodenal bulb and second portion of the duodenum. - No specimens collected. Recommendation: - Discharge patient to home. - Continue Omeprazole. - Repeat upper endoscopy in 3 months for surveillance of varices. - Return to referring physician. Nae Frost MD 07/17/2017 12:23:54 PM This report has been signed electronically. Note Initiated On: 07/17/2017 11:54 AM Number of Addenda: 0 I attest to the content of the Intraoperative Record and orders documented therein, exceptions below {[id number]}
--- NOTE | 2017-07-17 12:25 | Discharge Instructions ---
Endoscopy Patient Instructions Date / Procedure(s) Performed July 17, 2017. EGD Allergy Information Coded Allergies: QUINCY Inhibitors (Verified Allergy, Severe, COUGH, 07/17/17) Adhesives (Verified Allergy, Intermediate, rash, 07/17/17) Aminoglycosides (Verified Allergy, Intermediate, rash, 07/17/17) Bacitracin (Verified Allergy, Intermediate, rash, 07/17/17) Levofloxacin (Verified Allergy, Unknown, CHEST PAIN, 07/17/17) TABLETS Neomycin (Verified Allergy, Unknown, RED RASH, 07/17/17) CAN USE POLYMYCIN Discharge Date / Findings July 17, 2017. No remaining esophageal varices/ eradicated. Esophageal ulcers/scarring from prior bands Portal HTN gastropathy Provider Instructions Activity Restrictions - No exercising or heavy lifting for 24 hours. - Do not drink alcohol the day of the procedure. - Do not drive a car or operate machinery until the day after the procedure. - Do not make any important decisions or sign important papers in 24 hours after the procedure. Following Day: - Return to full activity which may include returning to work/school. Diet Start your diet with liquids and light foods (jello, soup, juice, toast). Then eat your usual diet if not nauseated. Treatment For Common After Affects For mild abdominal pain, bloating, or excessive gas: - Rest - Eat lightly - Lie on right side Follow-Up Information Follow-up with Dr. Jara as scheduled Anesthesia Information What You Should Know You have had a procedure that required some medicine to reduce anxiety and discomfort. This treatment is called moderate sedation. After receiving the treatment, you may be sleepy, but you will be able to breathe on your own. The effects of the treatment may last for several hours. Follow these instructions along with Activity/Diet recommendations noted above: * Do NOT do anything where dizziness or clumsiness would be dangerous. * Rest quietly at home today, then you can be up and about tomorrow. * Have a responsible person stay with you the rest of today. * You may have had an I.V. today. If so, you may take the dressing off later today. Recommendations Call your doctor if: * Trouble breathing * Continuous vomiting for more than 24 hours * Temperature above 101 degrees * Severe abdominal pain or bloating * Pain not relieved by pain medicine ordered * There is increased drainage or redness from any incision * A large amount of rectal bleeding greater than 2-3 tablespoons. (If you had a polyp/s removed or have hemorrhoids, a small amount of blood - from the rectum is to be expected.) * You have any unanswered questions or concerns. IN THE EVENT OF A SERIOUS EMERGENCY, GO TO THE NEAREST EMERGENCY ROOM Your discharge instructions were prepared by provider Nae Frost. Patient Instructions Signature Page Triny Hebert Patient (or Guardian) Signature/Date: I have read and understand the instructions given to me by my caregivers. Caregiver/RN/Doctor Signature/Date: The above-named patient and/or guardian has received patient instructions on this date. + Original Patient Signature Page (only) stays with chart. Please make copy for patient.
--- NOTE | 2017-07-17 12:28 | Anesthesiology Progress Note ---
Anesthesia Post Op Note Date & Time July 17, 2017 at 12:28 Vital Signs Pain Intensity: 0 Vital Signs Past 12 Hours Date Time Temp Pulse Resp B/P (MAP) Pulse Ox O2 Delivery O2 Flow Rate FiO2 07/17/17 12:16 85 16 102/53 (69) 95 Room Air 07/17/17 10:39 36.4 87 20 134/59 (84) 97 Room Air Notes Mental Status: alert / awake / arousable, participated in evaluation Pt Amnestic to Procedure: Yes Nausea / Vomiting: adequately controlled Pain: adequately controlled Airway Patency, RR, SpO2: stable & adequate BP & HR: stable & adequate Hydration State: stable & adequate Anesthetic Complications: no major complications apparent
[2017-07-17 12:46] VITALS: BP 137/87; PULSE 82; O2SAT 94
== END | disposition home or self-care (01) ==
LOC: C.GI 09:52
PROVIDERS: ATTEND Student in an Organized Health Care Education/Training Program
DX: I85.00 Esophageal varices without bleeding (principal); K22.10 Ulcer of esophagus without bleeding; K31.89 Other diseases of stomach and duodenum; E11.9 Type 2 diabetes mellitus without complications; I10 Essential (primary) hypertension; F32.9 Major depressive disorder, single episode, unspecified; G47.33 Obstructive sleep apnea (adult) (pediatric); Z99.89 Dependence on other enabling machines and devices; K74.60 Unspecified cirrhosis of liver; K21.9 Gastro-esophageal reflux disease without esophagitis; M19.90 Unspecified osteoarthritis, unspecified site; E66.01 Morbid (severe) obesity due to excess calories; Z85.3 Personal history of malignant neoplasm of breast; Z85.42 Personal history of malignant neoplasm of other parts of uterus; Z85.05 Personal history of malignant neoplasm of liver; Z90.49 Acquired absence of other specified parts of digestive tract; Z90.710 Acquired absence of both cervix and uterus; Z88.8 Allergy status to other drugs, medicaments and biological substances; Z88.1 Allergy status to other antibiotic agents

== ENCOUNTER → 2017-07-20 | Outpatient (CLI) | payer OTHER, BC ==
[~2017-07-20] MED LIST changes: -ATROPINE SULFATE 0.1 MG/ML 5ML SYR IV PRN; -EpHEDrine SULFATE INJ 50 MG/ML AMP IV PRN; -FENTANYL CITRATE INJ 50 MCG/1 ML 2 ML VIAL ONE; +GADOXETATE DISODIUM (NON-WT BASED PROCEDURE) IV PRN; -LIDOCAINE HCL 2% 2 ML VIAL (20MG/ML) ONE; -MIDAZOLAM HCL 1 MG/ML 2ML VIAL ONE; -NovoLIN-R INSULIN PER UNIT CHARGE IV ONE; -NovoLIN-R INSULIN PER UNIT CHARGE IV STA; -PROPOFOL IV EMULSION 10 MG/ML 20 ML VIAL ONE; -SODIUM CHLORIDE 0.9% 500ML 500 ML IV ONE
--- NOTE | 2017-07-20 12:58 | DIAGNOSTIC IMAGING REPORT ---
LIVER MRI WITH AND WITHOUT INTRAVENOUS CONTRAST HISTORY: Nonalcoholic fatty liver disease. Cirrhosis. TECHNIQUE: Multiplanar multisequence MRI of the abdomen was performed both before and after the intravenous administration of 10 cc of Eovist contrast. COMPARISON STUDY: Liver CT 05/18/2017 and liver MRI 04/03/2017. FINDINGS: There is again noted a nodular contour to the liver consistent with cirrhosis. The liver is atrophic. Prior cholecystectomy. No abnormal enhancement or masses identified within the liver. Within segment 5 of the liver there is a 2 cm focus demonstrating signal dropout on the fat suppressed sequences. Therefore, this is consistent with an area of focal fat. This does not demonstrate enhancement. This is best seen on LAVA postcontrast sequences image 55. This was not well visualized on the prior study likely due to artifact. The spleen remains mildly enlarged measuring 14 cm in. Moderate to large amount of ascites most pronounced within the upper abdomen. Mild body wall edema. Trace left pleural effusion. No areas of restricted diffusion. Normal pancreas. A 3.4 cm diverticulum at the third portion of the duodenum. A stable nonenhancing T2 hyperintense, T1 isointense 1.7 cm lesion within the lower pole the left kidney. This likely represents a cyst. There is also a stable T2 hyperintense 8 mm lesion within the spleen posteriorly. This measures mild enhancement. This likely benign. IMPRESSION: 1. Cirrhosis with portal hypertension evidenced by splenomegaly and a moderate to large amount of ascites. 2. No suspicious or hypervascular masses identified within the liver. 3. A 2 cm focus within segment 5 of the liver demonstrating signal dropout on fat-suppressed sequences. Therefore, this is consistent with focal fat. 4. Additional findings as described above. Electronically signed by: Victor Manuel Gracia M.D. 07/20/2017 12:57 PM Dictated Date/Time: 07/20/2017 12:32 PM
== END | disposition home or self-care (01) ==
LOC: C.MRI 10:51
PROVIDERS: ATTEND Nurse Practitioner
DX: K76.0 Fatty (change of) liver, not elsewhere classified (principal); K74.60 Unspecified cirrhosis of liver

== ENCOUNTER → 2017-07-23 | Outpatient (CLI) | payer OTHER, BC ==
[~2017-07-23] MED LIST changes: -GADOXETATE DISODIUM (NON-WT BASED PROCEDURE) IV PRN
--- NOTE | 2017-07-23 15:10 | MAMMOGRAPHY REPORT ---
UNILATERAL LEFT DIGITAL DIAGNOSTIC MAMMOGRAM TOMOSYNTHESIS WITH CAD: 07/23/2017 CLINICAL HISTORY: 72-year-old woman with a personal history of left breast cancer status post breast conservation treatment presents for continued close follow-up in the left breast. She reports liver cancer for which she is undergoing chemoembolization and also approximate 40 pound weight loss since the prior mammogram. TECHNIQUE: Left breast tomosynthesis in addition to standard 2D mammography was performed. Spot magn ification left CC and ML views were also obtained. Current study was also evaluated with a Computer A ided Detection (CAD) system. COMPARISON: Comparison is made to exams dated: 01/16/2017 mammogram, 05/22/2016 mammogram, 04/05/2016 m ammogram, 12/29/2015 mammogram, 12/23/2014 mammogram, and 12/17/2013 mammogram - [facility]. BREAST COMPOSITION: The tissue of the left breast is heterogeneously dense, which may obscure small masses. FINDINGS: There is a decreased subcutaneous fat and decreased size of the breasts, consistent with th e reported history of interval weight loss. A linear scar marker overlies the upper outer anterior/p eriareolar left breast. There is expected architectural distortion in the upper outer anterior left breast at the site of prior lumpectomy. There are numerous benign rim calcifications and scattered g roupings of benign-appearing coarse heterogeneous calcifications that most likely represent degenerat ing fibroadenomas. No new suspicious mass, unexpected architectural distortion or cluster of suspici ous microcalcifications is seen. IMPRESSION: ACR-BI-RADS CATEGORY 3: PROBABLY BENIGN Expected posttreatment changes in the left breast, without definite mammographic evidence of malignan cy. Another close follow-up left diagnostic mammogram and possible ultrasound is recommended in 6 mo nths to ensure longer stability after treatment. Annual right mammography will also be due at that t marian. These results and recommendations were discussed with the patient at the time of the exam. She tenta tively scheduled the follow-up appointment prior to leaving our department. Approximately 10% of breast cancers are not detected with mammography. A negative mammographic report should not delay biopsy if a clinically suggestive mass is present. Mica Zacarias M.D. ay/:07/23/2017 12:13:06 Plaster Helper: Kvng LOCK(R)(M), [facility] letter sent: Follow Up Recommended 3 BI-RADS Code: ACR-BI-RADS Category 3: Probably Benign
== END | disposition home or self-care (01) ==
LOC: C.MAMM 11:11
PROVIDERS: ATTEND Surgery
DX: R92.8 Other abnormal and inconclusive findings on diagnostic imaging of breast (principal)

== ENCOUNTER 2017-07-26 10:25 | Emergency (ER) | payer OTHER, BC ==
[~2017-07-26] VITALS: Ht 157.5 cm; Wt 119.0 kg
[2017-07-26 10:28] VITALS: TEMP 36.8; Ht 157.5 cm; Wt 119.0 kg
--- NOTE | 2017-07-26 10:52 | EMERGENCY ROOM VISIT NOTE ---
History Report prepared by Laurence: Jo Ann Banuelos Under the Supervision of: Dr. Josue Gold M.D. First contact with patient: 10:31 Chief Complaint: FEVER Stated Complaint: FEVER History of Present Illness The patient is a 72 year old white female with a past medical history of breast cancer, diabetes, external hemorrhoid, liver cancer, and uterine cancer who presents to the ED with a cc of a fever and urinary symptoms beginning this morning. Positive back pain, dry cough, and abdominal pain (chronic). Negative nausea, vomiting. She states she was scheduled for a paracentesis this morning but was found to have a fever of 38.6 in asu. She describes her pain during urination as a soreness and a burning. The patient reports her Lasix was changed to 150 a day and 120 for Lactone recently. Source of History: patient Onset: this morning Position: head, other (upper and lower extremities) Quality: other (fever) Timing: other (sudden) Associated Symptoms: + cough (dry), + abdominal pain (chronic), No nausea, No vomiting Review of Systems See HPI for pertinent positives and negatives. A total of ten systems were reviewed and were otherwise negative. Past Medical & Surgical Medical Problems: (1) Breast cancer (2) Diabetes (3) External hemorrhoid (4) Liver cancer (5) Uterine cancer Family History Patient reports no known family medical history. Social History Smoking Status: Never Smoker Drug Use: none Housing Status: lives alone Occupation Status: retired Current/Historical Medications Scheduled Calcium/Vitamin D (Os-Molina 500 Plus D), 2 TAB PO DAILY Cyanocobalamin (Vitamin B12), 3,000 MCG PO QAM Furosemide (Lasix), 80 MG PO QAM Furosemide (Lasix), 40 MG PO QPM Gabapentin (Neurontin), 800 MG PO BID Omeprazole (Prilosec), 20 MG PO BID Spironolactone (Aldactone), 100 MG PO QAM Spironolactone (Aldactone), 50 MG PO QPM Tamoxifen Citrate (Tamoxifen Citrate), 10 MG PO DAILY Scheduled PRN Acyclovir (Zovirax), 200 MG PO UD PRN for COLD SORES Alprazolam (Xanax), 0.25 MG PO TID PRN for SLEEP/ANXIETY Allergies Coded Allergies: QUINCY Inhibitors (Verified Allergy, Severe, COUGH, 07/26/17) Adhesives (Verified Allergy, Intermediate, rash, 07/26/17) Aminoglycosides (Verified Allergy, Intermediate, rash, 07/26/17) Bacitracin (Verified Allergy, Intermediate, rash, 07/26/17) Levofloxacin (Verified Allergy, Unknown, CHEST PAIN, 07/26/17) TABLETS Neomycin (Verified Allergy, Unknown, RED RASH, 07/26/17) CAN USE POLYMYCIN Physical Exam Vital Signs Date Time Temp Pulse Resp B/P (MAP) Pulse Ox O2 Delivery O2 Flow Rate FiO2 07/26/17 13:16 82 14 139/86 99 07/26/17 12:34 90 18 143/86 98 Room Air 07/26/17 10:28 36.8 80 20 126/70 99 Room Air Physical Exam GENERAL: Awake, alert, well-appearing, NAD HENT: Normocephalic, atraumatic. EYES: Normal conjunctiva. Sclera non-icteric. PERRL. No anisocoria. NECK: Supple. No nuchal rigidity. FROM. No CVA TTP. RESPIRATORY: CTAB, no rhonchi, wheezing, crackles CARDIAC: RRR, no MRG ABDOMEN: Soft, NT, BS+. Abdominal distention present. Fluid wave present. Not peritonitic. MSK: No chest wall TTP, 1 to 2+ pitting edema BLE. No asymptomatic swelling. NEURO: GCS 15, CN 2-12 intact, moves all 4s on command SKIN: No rash or jaundice noted. Medical Decision & Procedures Laboratory Results Test 07/26/17 10:55 Urine Color DK YELLOW Urine Appearance CLOUDY (CLEAR) Urine pH 5.0 (4.5-7.5) Urine Specific [place] 1.037 (1.000-1.030) Urine Protein TRACE (NEG) Urine Glucose (UA) 3+ (NEG) Urine Ketones NEG (NEG) Urine Occult Blood NEG (NEG) Urine Nitrite POS (NEG) Urine Bilirubin 1+ (NEG) Urine Urobilinogen NEG (NEG) Urine Leukocyte Esterase SMALL (NEG) Urine WBC (Auto) >30 /hpf (0-5) Urine RBC (Auto) 5-10 /hpf (0-4) Urine Hyaline Casts (Auto) 10-30 /lpf (0-5) Urine Epithelial Cells (Auto) >30 /lpf (0-5) Urine Bacteria (Auto) NEG (NEG) Urine Crystals CALCIUM OXALATE (NONE Urine Pathogenic Casts 1-5 GRANULAR CASTS /lpf (0) Laboratory results reviewed by me Medications Administered Medications (Trade) Dose Ordered Sig/Samir Route Start Time Stop Time Status Last Admin Dose Admin Cephalexin Monohydrate (Keflex Cap) 500 mg NOW ONCE PO 07/26/17 12:00 07/26/17 12:01 DC 07/26/17 12:36 500 MG ED Course 1042: The patient was evaluated in room A12. A complete history and physical exam was performed. 1220: I reevaluated the patient. She seemed to be feeling better. 1256: I spoke with the case worker. They will schedule a follow up appointment on Sunday. I reevaluated the patient. Discussed results and discharge instructions: She verbalized understanding and agreement. The patient is ready for discharge. Medical Decision The patient is a 72 year old white female with a past medical history of breast cancer, diabetes, external hemorrhoid, liver cancer, and uterine cancer who presents to the ED with a cc of a fever and urinary symptoms beginning this morning. Positive back pain, dry cough, and abdominal pain (chronic). Negative nausea, vomiting. Nursing notes reviewed. Ancillary studies and prior records reviewed. Differential diagnosis: Etiologies such as viral syndrome, otitis, pharyngitis, pneumonia, influenza, meningitis, urinary tract infection, sepsis, bacteremia, as well as others were entertained. Patient was seen and evaluated the bedside. Patient does have a prior history of some ascites secondary to liver cancer. Patient also does have a history of diabetes hyperlipidemia. Patient was seen at the outpatient center and pending a paracentesis but she was noted to have fever. Patient does complain that she has had some burning urination. On exam the patient is well-appearing. The patient does not have any abdominal discomfort or CVA tenderness to palpation. Patient did complain of some dysuria and some increasing urinary frequency. The patient has been increasing her dose of Lasix. Given that the patient again is well-appearing has a reasonable source and a fever but again is well-appearing I do not believe that she requires blood work at this time provided that the urinalysis shows a possible source. Patient did have urinalysis completed. Patient does have nitrites, leuks, WBCs. This may be a possible contaminant but given the patient's symptom and fever we will treat with Keflex. Patient was told that she has she has any worsening symptoms fever abdominal pain then she should return for further evaluation treatment. I did review prior blood work completed last month which showed a normal kidney function. I do not believe that she requires a diagnostic paracentesis at this time. I did have case worker help ensure that the patient did have follow-up for her paracentesis to be completed next week as discussed with the outpatient center note. We confirmed that this will be rescheduled for Sunday provided the patient can make the appointment. Patient was given a first dose of Keflex. Patient tolerated this without issue. Patient was deemed suitable and safe for outpatient follow-up and treatment at this time. Patient was given strict follow-up, discharge, and return precautions. All questions were answered. Patient was deemed suitable for outpatient follow-up at this time. Patient agreed with the plan of care and was safely discharged home. Of note the patient's prescription for Keflex was called in to her pharmacy of choice. This was completed by the pharmacist. Medication Reconcilliation Current Medication List: was personally reviewed by me Blood Pressure Screening Patient's blood pressure: Normal blood pressure Blood pressure disposition: Did not require urgent referral Impression Primary Impression: Fever Additional Impression: UTI (urinary tract infection) Scribe Attestation The scribe's documentation has been prepared under my direction and personally reviewed by me in its entirety. I confirm that the note above accurately reflects all work, treatment, procedures, and medical decision making performed by me. Departure Information Dispostion Home / Self-Care Referrals Pk Minaya, D.O. (PCP) Forms HOME CARE DOCUMENTATION FORM, IMPORTANT VISIT INFORMATION Patient Instructions ED Fever Control, ED UTI Cystitis Female, My [facility] Additional Instructions Please return to the emergency department if you have worsening or recurrent symptoms not amenable to at-home treatment. Please call for a follow-up appointment with her primary care physician. Please take your medications as prescribed. If you have other concerns and/or complaints please feel free to also call your primary care physician's office or return the ED for further evaluation, management, and treatment. You may take 400 mg Ibuprofen every 12 hours as needed for pain/fever with food unless told by your physician not to take NSAIDs. You may take tylenol 500 mg every 12 hours as needed for pain/fever unless told by your physician to not take it or have liver problems. You may take motrin and tylenol separately or at the same time. Please only use as directed from your physicians as you do have a history of liver disease. Take your medications as prescribed. If taking an antibiotic consider taking a probiotic and/or eating yogurt, but at the least, please take with food as it can cause upset stomach. If culture results are not available at discharge, if they are positive for concern of infection, you will be informed of the results as soon as they are available. You have been examined and treated today on an emergency basis only. This is not a substitute for, or an effort to provide, complete comprehensive medical care. It is impossible to recognize and treat all injuries or illnesses in a single emergency department visit. It is therefore important that you follow up closely with [facility], your PCP, and/or your specialist(s). Call as soon as possible for an appointment. Thank you for your time and consideration. I look forward to speaking with you again soon. Please don't hesitate to call us if you have any questions. Problem Qualifiers Primary Impression: Fever Fever type: unspecified Qualified Codes: R50.9 - Fever, unspecified Additional Impression: UTI (urinary tract infection) Urinary tract infection type: acute cystitis Hematuria presence: with hematuria Qualified Codes: N30.01 - Acute cystitis with hematuria
[2017-07-26] MEDS ORDERED: SPIR50TA2 PO (11:11)
[2017-07-26] MEDS ORDERED: FRS/40 PO (11:11)
[2017-07-26] MEDS ORDERED: CEPHALEXIN MONOHYDRATE 250 MG CAP PO ONE (12:00)
[2017-07-26 13:16] VITALS: BP 139/86; PULSE 82; O2SAT 99
--- NOTE | 2017-07-26 16:15 | Pharmacy Progress Note ---
ED Pharmacist Progress Note Date of Service: July 26, 2017. Patient called stating prescription never sent to pharmacy. I spoke with Dr. Gold who saw the patient and subsequently called in the prescription to [facility] pharmacy for keflex 500mg BID X 7 days qty 13.
== END 2017-07-26 13:16 | disposition home or self-care (01) ==
LOC: C.EDB 10:26 → C.EDA 13:16
DX: N39.0 Urinary tract infection, site not specified (principal); Z85.3 Personal history of malignant neoplasm of breast; E78.5 Hyperlipidemia, unspecified; E11.9 Type 2 diabetes mellitus without complications; Z85.05 Personal history of malignant neoplasm of liver; Z85.42 Personal history of malignant neoplasm of other parts of uterus; Z79.899 Other long term (current) drug therapy; Z88.1 Allergy status to other antibiotic agents; Z88.8 Allergy status to other drugs, medicaments and biological substances; Z91.048 Other nonmedicinal substance allergy status

== ENCOUNTER 2017-09-25 09:57 | Inpatient (IN) | payer OTHER, BC ==
[~2017-09-25] VITALS: Ht 157.5 cm; Wt 117.0 kg
[~2017-09-25 09:57] MED LIST changes: +SPIR50TA2 PO; -TRAM-10 PO
--- NOTE | 2017-09-25 10:30 | EMERGENCY ROOM VISIT NOTE ---
History Report prepared by Laurence: Yomi Chapman Under the Supervision of: Dr. Josue Gold M.D. First contact with patient: 10:09 Chief Complaint: REFERRED BY DOCTOR Stated Complaint: REFERRED BY DOCTOR History of Present Illness The patient is a 72 year old white female with a past medical history of breast cancer, diabetes, external hemorrhoids, liver cancer, and uterine cancer who presents to the Emergency Room with complaints of worsening fluid accumulation across her abdomen and in her lower extremities over the past 2 weeks. The patient states that she has gained over 30 pounds in a short period of time. She describes her abdomen as feeling "tight." The patient also notes some shortness of breath which is worsened with laying flat. She is also not urinating as much as her baseline. Source of History: patient Onset: 2 weeks Position: abdomen, leg Quality: other (Abdomen "tight", ulysses in legs) Timing: worsening Associated Symptoms: + SOB Review of Systems See HPI for pertinent positives and negatives. A total of ten systems were reviewed and were otherwise negative. Past Medical & Surgical Medical Problems: (1) Breast cancer (2) Depression (3) Diabetic polyneuropathy (4) DM type 2 (diabetes mellitus, type 2) (5) Esophageal varices (6) GERD (gastroesophageal reflux disease) (7) HCC (hepatocellular carcinoma) (8) HTN (hypertension) (9) LEARY (nonalcoholic steatohepatitis) (10) Portal hypertension (11) Uterine cancer Surgical Problems: (1) H/O lumpectomy (2) Hx of cholecystectomy (3) S/P DONNELL-BSO Family History Patient reports no known family medical history. Social History Smoking Status: Never Smoker Drug Use: none Housing Status: lives alone Occupation Status: retired Current/Historical Medications Scheduled Calcium/Vitamin D (Os-Molina 500 Plus D), 2 TAB PO DAILY Cyanocobalamin (Vitamin B12), 3,000 MCG PO QAM Furosemide (Lasix), 40 MG PO QPM Furosemide (Lasix), 80 MG PO DAILY Gabapentin (Neurontin), 1-2 TABS PO DAILY Insulin Glargine (Lantus), 30 UNITS SC HS Omeprazole (Prilosec), 20 MG PO BID Sertraline (Zoloft), 25 MG PO DAILY Spironolactone (Aldactone), 100 MG PO QAM Spironolactone (Aldactone), 50 MG PO QPM Tamoxifen Citrate (Tamoxifen Citrate), 10 MG PO DAILY Scheduled PRN Alprazolam (Xanax), 0.25 MG PO TID PRN for SLEEP/ANXIETY Allergies Coded Allergies: QUINCY Inhibitors (Verified Allergy, Severe, COUGH, 09/25/17) Adhesives (Verified Allergy, Intermediate, rash, 09/25/17) Aminoglycosides (Verified Allergy, Intermediate, rash, 09/25/17) Bacitracin (Verified Allergy, Intermediate, rash, 09/25/17) Levofloxacin (Verified Allergy, Unknown, CHEST PAIN, 09/25/17) TABLETS Neomycin (Verified Allergy, Unknown, RED RASH, 09/25/17) CAN USE POLYMYCIN Physical Exam Vital Signs Date Time Temp Pulse Resp B/P (MAP) Pulse Ox O2 Delivery O2 Flow Rate FiO2 09/25/17 12:25 97 Room Air 09/25/17 11:26 82 18 139/78 97 Room Air 09/25/17 10:47 72 09/25/17 10:05 36.7 90 18 121/63 96 Room Air Physical Exam GENERAL: Awake, alert, well-appearing, NAD HENT: Normocephalic, atraumatic. EYES: Normal conjunctiva. Sclera non-icteric. PERRL. No anisocoria. NECK: Supple. No nuchal rigidity. FROM. RESPIRATORY: CTAB, no rhonchi, wheezing, crackles CARDIAC: RRR, no MRG ABDOMEN: Soft, no tenderness, distended, positive fluid wave, BS+, negative Obturators/Psoas. MSK: No chest wall TTP, 4+ bilateral LE edema NEURO: GCS 15, CN 2-12 intact, moves all 4s on command SKIN: No rash. Slight jaundice. Medical Decision & Procedures Laboratory Results 09/25/17 10:32 Red Blood Count 3.49, Mean Corpuscular Volume 100.9, Mean Corpuscular Hemoglobin 33.0, Mean Corpuscular Hemoglobin Concent 32.7, Mean Platelet Volume 10.2, Neutrophils (%) (Auto) 63.9, Lymphocytes (%) (Auto) 20.9, Monocytes (%) ( Auto) 11.8, Eosinophils (%) (Auto) 2.6, Basophils (%) (Auto) 0.6, Neutrophils # (Auto) 3.24, Lymphocytes # (Auto) 1.06, Monocytes # (Auto) 0.60, Eosinophils # ( Auto) 0.13, Basophils # (Auto) 0.03 09/25/17 10:32 Test 09/25/17 10:18 09/25/17 10:32 09/25/17 10:39 Urine Color DK YELLOW Urine Appearance CLOUDY (CLEAR) Urine pH 5.0 (4.5-7.5) Urine Specific [place] 1.024 (1.000-1.030) Urine Protein NEG (NEG) Urine Glucose (UA) NEG (NEG) Urine Ketones TRACE (NEG) Urine Occult Blood NEG (NEG) Urine Nitrite POS (NEG) Urine Bilirubin NEG (NEG) Urine Urobilinogen POS (NEG) Urine Leukocyte Esterase SMALL (NEG) Urine WBC (Auto) 1-5 /hpf (0-5) Urine RBC (Auto) 0-4 /hpf (0-4) Urine Hyaline Casts (Auto) /lpf (0-5) Urine Epithelial Cells (Auto) >30 /lpf (0-5) Urine Bacteria (Auto) NEG (NEG) Urine Crystals CALCIUM OXALATE (NONE Urine Pathogenic Casts /lpf (0) White Blood Count 5.07 K/uL (4.8-10.8) Red Blood Count 3.49 M/uL (4.2-5.4) Hemoglobin 11.5 g/dL (12.0-16.0) Hematocrit 35.2 % (37-47) Mean Corpuscular Volume 100.9 fL (80-100) Mean Corpuscular Hemoglobin 33.0 pg (25-34) Mean Corpuscular Hemoglobin Concent 32.7 g/dl (32-36) Platelet Count 102 K/uL (130-400) Mean Platelet Volume 10.2 fL (7.4-10.4) Neutrophils (%) (Auto) 63.9 % Lymphocytes (%) (Auto) 20.9 % Monocytes (%) (Auto) 11.8 % Eosinophils (%) (Auto) 2.6 % Basophils (%) (Auto) 0.6 % Neutrophils # (Auto) 3.24 K/uL (1.4-6.5) Lymphocytes # (Auto) 1.06 K/uL (1.2-3.4) Monocytes # (Auto) 0.60 K/uL (0.11-0.59) Eosinophils # (Auto) 0.13 K/uL (0-0.5) Basophils # (Auto) 0.03 K/uL (0-0.2) RDW Standard Deviation 56.2 fL (36.4-46.3) RDW Coefficient of Variation 15.4 % (11.5-14.5) Immature Granulocyte % (Auto) 0.2 % Immature Granulocyte # (Auto) 0.01 K/uL (0.00-0.02) Prothrombin Time 13.2 SECONDS (9.0-12.0) Prothromb Time International Ratio 1.3 (0.9-1.1) Activated Partial Thromboplast Time 23.7 SECONDS (21.0-31.0) Partial Thromboplastin Ratio 0.9 Anion Gap 7.0 mmol/L (3-11) Est Creatinine Clear Calc Drug Dose 76.1 ml/min Estimated GFR () 75.1 Estimated GFR (Non- 64.8 BUN/Creatinine Ratio 18.2 (10-20) Calcium Level 9.4 mg/dl (8.5-10.1) Phosphorus Level 2.4 mg/dl (2.5-4.9) Magnesium Level 1.6 mg/dl (1.8-2.4) Total Bilirubin 3.7 mg/dl (0.2-1) Direct Bilirubin 1.2 mg/dl (0-0.2) Aspartate Amino Transf (AST/SGOT) 49 U/L (15-37) Alanine Aminotransferase (ALT/SGPT) 32 U/L (12-78) Alkaline Phosphatase 116 U/L (45-117) Troponin I < 0.015 ng/ml (0-0.045) Pro-B-Type Natriuretic Peptide 64 pg/ml (0-900) Total Protein 7.6 gm/dl (6.4-8.2) Albumin 2.6 gm/dl (3.4-5.0) Lipase 132 U/L (73-393) Hepatitis C Antibody Screen NEG (NEG) Laboratory results reviewed by me Medications Administered Medications (Trade) Dose Ordered Sig/Samir Route Start Time Stop Time Status Last Admin Dose Admin Fentanyl Citrate (Fentanyl Inj) 50 mcg NOW ONCE IV 09/25/17 11:45 09/25/17 11:47 DC 09/25/17 12:00 50 MCG Magnesium Sulfate 100 ml @ 100 mls/hr NOW STAT IV 09/25/17 11:52 09/25/17 12:51 DC 09/25/17 12:00 100 MLS/HR Furosemide (Lasix Inj) 80 mg STK-MED ONCE .ROUTE 09/25/17 11:57 09/25/17 11:58 DC 09/25/17 12:00 80 MG ECG Per My Interpretation Indication: other (Fluid accumulation) Rate (beats per minute): 98 Rhythm: normal sinus Findings: other (normal intervals, normal axis, T-wave flattening in lead 3 ) ED Course 1016: The patient was evaluated in room B4B. A complete history and physical exam was performed. 1151: I discussed the case with Joan Juarez [facility] Hospitalist EARNEST. She will evaluate for further intervention. Medical Decision The patient is a 72 year old white female with a past medical history of breast cancer, diabetes, external hemorrhoids, liver cancer, and uterine cancer who presents to the Emergency Room with complaints of worsening fluid accumulation across her abdomen and in her lower extremities over the past 2 weeks. Nursing notes reviewed. Ancillary studies and prior records reviewed. Differential diagnosis: Etiologies such as viral syndrome, otitis, SBP, pharyngitis, pneumonia, influenza, meningitis, urinary tract infection, sepsis, bacteremia, as well as others were entertained. Patient was seen and evaluated the bedside. Patient does have a known history of hepatocellular carcinoma. The patient was complaining of worsening shortness of breath orthopnea as well as weight gain of 32 pounds of last 2 weeks. Patient last had a paracentesis [address] tillman. The patient has not missed any doses of her medications. The patient does take 120 of Lasix as well as 150 of Aldactone daily. Patient denies any increased salt or fluid intake. The patient does have polyp positive fluid wave on exam. Patient did have blood work completed along with urinalysis and patient's blood work did show elevations in LFTs. The patient has no normal white blood cell count. The patient does not have any peritonitis. Less likely SPEP given normal white count and no abdominal symptoms. The patient does have some chronic but stable anemia. Patient did have mildly low mag and phosphorus were repleted. Given the patient's change in LFTs and liver cancer ultrasound of the liver was ordered. I did speak with the on-call hospitalist who agreed to further evaluate treat the patient. Patient was updated as gastroenterology is talking the patient. Patient was admitted to the medicine service. IV Lasix was also ordered. Medication Reconcilliation Current Medication List: was personally reviewed by me Blood Pressure Screening Patient's blood pressure: Normal blood pressure Consults Time Called: 1145 Consulting Physician: Joan TINOCO Returned Call: 1151 I [facility] the [facility]. She will evaluate for further intervention. Impression Primary Impression: Ascites Additional Impressions: Hyperbilirubinemia Hypomagnesemia Hypophosphatemia Scribe Attestation The scribe's documentation has been prepared under my direction and personally reviewed by me in its entirety. I confirm that the note above accurately reflects all work, treatment, procedures, and medical decision making performed by me. Departure Information Dispostion Being Evaluated By Hospitalist Referrals Pk Minaya, Roberto Carlos.OTerry (PCP) Patient Instructions My [facility] Problem Qualifiers Primary Impression: Ascites Ascites type: other type Qualified Codes: R18.8 - Other ascites
[2017-09-25 10:57] LABS: BASO % 0.6 %; BASO ABS # 0.03 K/uL (0-0.2); EOS % 2.6 %; EOS ABS # 0.13 K/uL (0-0.5); HEMATOCRIT 35.2 % (37-47); HEMOGLOBIN 11.5 g/dL (12.0-16.0); IG# 0.01 K/uL (0.00-0.02); LYMPH % 20.9 %; LYMPH ABS # 1.06 K/uL (1.2-3.4); MEAN CELL VOLUME 100.9 fL (80-100); MEAN CORPUSCULAR HGB CONC 32.7 g/dl (32-36); MEAN PLATELET VOLUME 10.2 fL (7.4-10.4); MONO % 11.8 %; NEUT % 63.9 %; NEUT ABS # 3.24 K/uL (1.4-6.5); PLATELET COUNT 102 K/uL (130-400); RED CELL DISTRIBUTION WIDTH CV 15.4 % (11.5-14.5); RED CELL DISTRIBUTION WIDTH SD 56.2 fL (36.4-46.3); WHITE BLOOD COUNT 5.07 K/uL (4.8-10.8)
[2017-09-25 11:13] LABS: INR 1.3 (0.9-1.1); PTT PATIENT 23.7 SECONDS (21.0-31.0)
[2017-09-25 11:21] LABS: ALBUMIN 2.6 gm/dl (3.4-5.0); CALCIUM 9.4 mg/dl (8.5-10.1); CREATININE 0.9 mg/dl (0.60-1.20); PHOSPHORUS 2.4 mg/dl (2.5-4.9); POTASSIUM 3.7 mmol/L (3.5-5.1); TOTAL PROTEIN 7.6 gm/dl (6.4-8.2)
[2017-09-25] MEDS ORDERED: FENTANYL CITRATE INJ 50 MCG/1 ML 2 ML VIAL IV ONE (11:45)
[2017-09-25] MEDS ORDERED: FUROSEMIDE INJ 80 MG in SYRINGE 0 ML IV ONE (11:45)
[2017-09-25] MEDS ORDERED: FURO80TA63 PO (11:52)
[2017-09-25] MEDS ORDERED: MAGNESIUM SULFATE 1GM / D5W 100 ML IV STA (11:52)
[2017-09-25] MEDS ORDERED: SERT25TA PO (11:52)
[2017-09-25] MEDS ORDERED: FUROSEMIDE 40 MG/4 ML VIAL ONE (11:57)
[2017-09-25] MEDS ORDERED: INSDGI SC (12:05)
[2017-09-25 12:25] VITALS: O2SAT 97; BMI 53.2
[2017-09-25] MEDS ORDERED: ONDANSETRON INJ 2 MG/ML 2 ML VIAL IV PRN (12:45)
[2017-09-25] MEDS ORDERED: POT PHOSPHATE MONOBASIC W/ SOD TAB PO SCH (13:00)
--- NOTE | 2017-09-25 13:00 | Gastrointestinal Consultation ---
Gastrointestinal Consultation Date of Consultation: Sep 25, 2017 Attending Physician: Josue Gold Consulting Physician: Jose M Saha Reason for Consultation: Volume overload, fever History of Present Illness Patient is a 72 year old female w hx of NAFLD cirrhosis, complicated by volume overload, HCC s/p TACE October 2016, portal HTN, esophageal varices s/p banding. She was at GI clinic for follow up visit, seen by EARNEST Peres who then referred her to ED for evaluation as she's been c/o having low grade fever (99F) and also weight gain 30lbs in 1 month, most of which she felt in her abd area. Family also notice her being more jaundiced. Pt denies any recent illness/hospitalization, CP, SOB. Noticed abd been increasing in girth. 30 lbs weight gain in 1 lb. Last u/s guided paracentesis 01/20 5L removal. Denies hx of SBP. She is taking 120mg of Lasix total a day, Spironolactone 150mg daily (though previously asked to increase dose to 150mg BID). Said been watching Sodium in diet, and knows to limit to 2g a day. Denies new meds, sick contact, travels. Her UA showed possible UTI, cx pending but she denies any dysuria, hematuria, urgency. Denies any bowel habit changes, specifically no dark tarry stools, rectal bleeding. VS stable, afebrile. Labs showed no leukocytosis, H/H chronic anemia. BUN/Cr normal. Mg and Phosphorus low. LFTs: Tbili 3.7, Dbili 1/2, AST 49, ALT 32, AP 116. Lipase 132. LFT elevation similar to baseline. Past Medical/Surgical History Medical Problems: (1) Abdominal pain Status: Acute (2) Ascites Status: Acute (3) Fall Status: Acute (4) Fever Status: Acute (5) Hyperbilirubinemia Status: Acute (6) Hypomagnesemia Status: Acute (7) Hypophosphatemia Status: Acute (8) Lumbosacral radiculopathy Status: Acute (9) UTI (urinary tract infection) Status: Acute Past Medical History: Se HPI above and hx of breast ca on Tamoxifen, DM II, uterine ca. Past Surgical History: Lap cholecystectomy, breast bx, D&C Family History Patient reports no known family medical history. Unrelated to admission Social History Smoking Status: Never Smoker Drug Use: none Housing Status: lives alone Occupation Status: retired Allergies Coded Allergies: QUINCY Inhibitors (Verified Allergy, Severe, COUGH, 09/25/17) Adhesives (Verified Allergy, Intermediate, rash, 09/25/17) Aminoglycosides (Verified Allergy, Intermediate, rash, 09/25/17) Bacitracin (Verified Allergy, Intermediate, rash, 09/25/17) Levofloxacin (Verified Allergy, Unknown, CHEST PAIN, 09/25/17) TABLETS Neomycin (Verified Allergy, Unknown, RED RASH, 09/25/17) CAN USE POLYMYCIN Current Medications Home Meds and Scripts Medications Dose Route/Sig Max Daily Dose Days Date Category Dose Instructions Lantus (Insulin Glargine) 100 Unit/Ml Inj 30 Units SC DAILY 09/25/17 Reported Zoloft (Sertraline HCl) 25 Mg Tab 25 Mg PO DAILY 09/25/17 Reported Lasix (Furosemide) 80 Mg Tab 80 Mg PO DAILY 09/25/17 Reported Aldactone (Spironolactone) 50 Mg Tab 50 Mg PO QPM 07/26/17 Reported Lasix (Furosemide) 40 Mg Tab 40 Mg PO QPM 07/26/17 Reported Aldactone (Spironolactone) 100 Mg Tab 100 Mg PO QAM 03/08/17 Reported Tamoxifen Citrate 10 Mg Tab 10 Mg PO DAILY 01/14/17 Reported Os-Molina 500 Plus D (Calcium/Vitamin D) Tab 2 Tab PO DAILY 06/22/16 Reported TAKES WITH LARGEST MEAL OF DAY Vitamin B12 (Cyanocobalamin) 1,000 Mcg Tab 3,000 Mcg PO QAM 09/22/14 Reported Prilosec (Omeprazole) 20 Mg Cap 20 Mg PO BID 02/10/13 Reported Xanax (Alprazolam) 0.5 Mg Tab 0.25 Mg PO TID PRN 02/10/13 Reported Zovirax (Acyclovir) 200 Mg Cap 200 Mg PO UD PRN 02/10/13 Reported Neurontin (Gabapentin) 800 Mg Tab 800 Mg PO BID 08/05/08 Reported Review of Systems Constitutional: + fever (subjective), + weakness, No chills Respiratory: No cough, No shortness of breath Cardiac: No chest pain Abdomen: No pain, No nausea, No vomiting, No GI bleeding Skin: + jaundice, No rash, No itch Physical Exam Date Time Temp Pulse Resp B/P (MAP) Pulse Ox O2 Delivery O2 Flow Rate FiO2 09/25/17 11:26 82 18 139/78 97 Room Air 09/25/17 10:47 72 09/25/17 10:05 36.7 90 18 121/63 96 Room Air General Appearance: + mild distress (appears fatigued) Eyes: normal inspection, PERRL, EOMI Neck: supple, no JVD, trachea midline Respiratory/Chest: no respiratory distress, no accessory muscle use, + decreased breath sounds Cardiovascular: regular rate, rhythm, no gallop, no murmur Abdomen: normal bowel sounds, non tender, + distended Extremities: + pedal edema (+2) Neurologic/Psych: alert, normal mood/affect, oriented x 3 Skin: normal color, no jaundice, no rash Laboratory Results Last 24 Hours Test 09/25/17 10:18 09/25/17 10:32 09/25/17 12:16 Urine Color DK YELLOW Urine Appearance CLOUDY Urine pH 5.0 Urine Specific [place] 1.024 Urine Protein NEG Urine Glucose (UA) NEG Urine Ketones TRACE Urine Occult Blood NEG Urine Nitrite POS Urine Bilirubin NEG Urine Urobilinogen POS Urine Leukocyte Esterase SMALL Urine WBC (Auto) 1-5 /hpf Urine RBC (Auto) 0-4 /hpf Urine Hyaline Casts (Auto) /lpf Urine Epithelial Cells (Auto) >30 /lpf Urine Bacteria (Auto) NEG Urine Crystals CALCIUM OXALATE Urine Pathogenic Casts /lpf White Blood Count 5.07 K/uL Red Blood Count 3.49 M/uL Hemoglobin 11.5 g/dL Hematocrit 35.2 % Mean Corpuscular Volume 100.9 fL Mean Corpuscular Hemoglobin 33.0 pg Mean Corpuscular Hemoglobin Concent 32.7 g/dl Platelet Count 102 K/uL Mean Platelet Volume 10.2 fL Neutrophils (%) (Auto) 63.9 % Lymphocytes (%) (Auto) 20.9 % Monocytes (%) (Auto) 11.8 % Eosinophils (%) (Auto) 2.6 % Basophils (%) (Auto) 0.6 % Neutrophils # (Auto) 3.24 K/uL Lymphocytes # (Auto) 1.06 K/uL Monocytes # (Auto) 0.60 K/uL Eosinophils # (Auto) 0.13 K/uL Basophils # (Auto) 0.03 K/uL RDW Standard Deviation 56.2 fL RDW Coefficient of Variation 15.4 % Immature Granulocyte % (Auto) 0.2 % Immature Granulocyte # (Auto) 0.01 K/uL Prothrombin Time 13.2 SECONDS Prothromb Time International Ratio 1.3 Activated Partial Thromboplast Time 23.7 SECONDS Partial Thromboplastin Ratio 0.9 Sodium Level 136 mmol/L Potassium Level 3.7 mmol/L Chloride Level 102 mmol/L Carbon Dioxide Level 27 mmol/L Anion Gap 7.0 mmol/L Blood Urea Nitrogen 16 mg/dl Creatinine 0.90 mg/dl Est Creatinine Clear Calc Drug Dose 76.1 ml/min Estimated GFR () 75.1 Estimated GFR (Non- 64.8 BUN/Creatinine Ratio 18.2 Random Glucose 155 mg/dl Calcium Level 9.4 mg/dl Phosphorus Level 2.4 mg/dl Magnesium Level 1.6 mg/dl Total Bilirubin 3.7 mg/dl Direct Bilirubin 1.2 mg/dl Aspartate Amino Transf (AST/SGOT) 49 U/L Alanine Aminotransferase (ALT/SGPT) 32 U/L Alkaline Phosphatase 116 U/L Pro-B-Type Natriuretic Peptide 64 pg/ml Total Protein 7.6 gm/dl Albumin 2.6 gm/dl Lipase 132 U/L Impression Patient is a 72 year old female w 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 She was referred to ED from GI clinic for subjective fever, weight gain 30lbs in 1 month. Labs w/o leukocytosis, H/H stable, LFTs elevation similar to baseline. Mg and Phosphorus low, UA possible UTI. MELD w/o HCC points 15. Plan - U/S guided paracentesis w 5L ascites removal and fluid analysis to r/o SBP, cx , cytology requested. Albumin 25% 25G before and after paracentesis ordered. Likely will need to repeat paracentesis in 2 days time to get ascites under control. I also discussed with pt possibility of having her undergo scheduled routine paracentesis every other weeks should diuretic titration and 2g Na diet alone cannot get ascites volume low. - Duplex portal vein to r/o PVT - Lasix 60mg BID, Spironolactone 150mg BID. Monitor renal function and electrolytes - F/U urine and blood cx. - Correct Mg and Phosphorus - 2g Na, diabetic and heart healthy diet. - Last EGD 07/20/17 no more varices to band (last banding done on 06/2017), + esophageal ulcer. - Will r/o SBP first and if negative and ascites under control can consider restart non selective beta ned (previously held for volume overload by Dr. Jara). - Protonix 40mg BID. - F/U with [facility] for TACE on 10/01/17 as scheduled. ATTESTATION: I have performed a history and physical examination of this patient and reviewed the electronic record. Specifically on physical examination abdomen is soft with moderate distention. I have discussed the case with EARNEST Valverde. The above note reflects my findings, conclusions, and recommendations. Jose M Saha MD
[2017-09-25] MEDS ORDERED: ALPRAZOLAM 0.5 MG TAB PO PRN (13:30)
[2017-09-25] MEDS ORDERED: GLUCOSE 10 TABS/TUBE PO PRN (13:45)
[2017-09-25] MEDS ORDERED: DEXTROSE 50% 50 ML SYR IV PRN (13:45)
[2017-09-25] MEDS ORDERED: GLUCAGON FOR INJ 1 MG VIAL SQ PRN (13:45)
[2017-09-25] MEDS ORDERED: CARBOHYDRATES FOR HYPOGLYCEMIA PO PRN (13:45)
[2017-09-25] MEDS ORDERED: GLUCOSE 40% GEL 15 GM TUBE PO PRN (13:45)
--- NOTE | 2017-09-25 13:47 | DIAGNOSTIC IMAGING REPORT ---
ASCITES-ABDOMEN LIMITED CLINICAL HISTORY: h/o HCC and worsening LFTs and bili ascites TECHNIQUE: Survey abdominal ultrasound COMPARISON STUDY: 08/13/2017 FINDINGS: Ascites throughout the abdomen and pelvis. IMPRESSION: Ascites throughout the abdomen and pelvis. The above report was generated using voice recognition software. It may contain grammatical, syntax or spelling errors. Electronically signed by: Srinivas Mccollum M.D. 09/25/2017 1:45 PM Dictated Date/Time: 09/25/2017 1:45 PM
--- NOTE | 2017-09-25 13:52 | DIAGNOSTIC IMAGING REPORT ---
DUPLEX PORTAL HEPATIC VEINS CLINICAL HISTORY: r/o PVT, increased ascites COMPARISON STUDY: Abdominal MRI 07/20/2017. FINDINGS: Nodular contour to the liver consistent with cirrhosis. Small to moderate amount of perihepatic ascites. The main portal vein is patent and demonstrates bidirectional flow. No evidence for portal vein thrombosis. The visualized hepatic veins and IVC are patent. IMPRESSION: 1. No evidence for portal vein thrombosis. 2. Bidirectional flow of the portal vein consistent with developing portal hypertension. 3. Cirrhotic liver with a small to moderate amount of perihepatic ascites. Electronically signed by: Victor Manuel Gracia M.D. 09/25/2017 1:50 PM Dictated Date/Time: 09/25/2017 1:45 PM
--- NOTE | 2017-09-25 14:30 | History and Physical ---
History & Physical Date & Time of Service: Sep 25, 2017 ~ 12:15 Chief Complaint: Shortness of breath, weight gain Primary Care Physician: Pk Minaya D.O. History of Present Illness 72-year-old female who presents the ED by referral of outpatient GI provider for shortness of breath and weight gain. Patient has history of LEARY. Recently underwent 5 L paracentesis on 08/13/17. Patient reports a gradual weight gain since that time. She reports gaining 30 pounds over the past 1 month. She has had increasing abdominal distention and worsening shortness of breath. She reports feeling short of breath at rest and is unable to lie flat. She has been sleeping in a chair. She was reports feeling lightheaded and dizzy with standing. No syncopal events. She denies chest pain. She reports abdominal pressure but denies any pain or tenderness. She reports chills which is chronic for her. She had a low-grade fever while at the GI office today at 99. No nausea, vomiting, diarrhea, bright red bleeding per rectum, or dark tarry stools. She reports urinary hesitancy but denies dysuria or foul- smelling urine. She reports medication and low-sodium diet compliance. in the ED, patient is hemodynamically stable. Labs are unremarkable. Exam is notable for significant ascites. Patient was given Lasix 80 mg IV. Past Medical/Surgical History Medical Problems: (1) Breast cancer Permanent Comment: Self detected left breast mass Status post core needle biopsy 04/18/2016 revealing invasive ductal carcinoma grade 3 Estrogen receptor positive, progesterone receptor positive, HER-2/lakhwinder negative Status post lumpectomy and sentinel lymph node biopsy 05/22/2016 Stage pT2 pN0 M0 G3 Status post completion of radiation therapy 08/09/2016. She received 5130 cGy utilizing hypo-fractionation. Status: Resolved (2) Depression Status: Chronic (3) Diabetic polyneuropathy Status: Chronic (4) DM type 2 (diabetes mellitus, type 2) Status: Chronic (5) Esophageal varices Permanent Comment: S/P banding 06/2017 Status: Chronic (6) GERD (gastroesophageal reflux disease) Status: Chronic (7) HCC (hepatocellular carcinoma) Permanent Comment: s/p TACE 10/2016 Status: Chronic (8) HTN (hypertension) Status: Chronic (9) LEARY (nonalcoholic steatohepatitis) Status: Chronic (10) Portal hypertension Status: Chronic (11) Uterine cancer Status: Chronic Surgical Problems: (1) H/O lumpectomy Status: Chronic (2) Hx of cholecystectomy Status: Chronic (3) S/P DONNELL-BSO Status: Chronic Family History Hypertension MOTHER Social History Smoking Status: Never Smoker Alcohol Use: none Immunizations History of Tetanus Vaccine?: Yes Tetanus Immunization Date: Aug 05, 2017 History of Pneumococcal: Yes Pneumococcal Date: Aug 05, 2017 Allergies Coded Allergies: QUINCY Inhibitors (Verified Allergy, Severe, COUGH, 09/25/17) Adhesives (Verified Allergy, Intermediate, rash, 09/25/17) Aminoglycosides (Verified Allergy, Intermediate, rash, 09/25/17) Bacitracin (Verified Allergy, Intermediate, rash, 09/25/17) Levofloxacin (Verified Allergy, Unknown, CHEST PAIN, 09/25/17) TABLETS Neomycin (Verified Allergy, Unknown, RED RASH, 09/25/17) CAN USE POLYMYCIN Home Medications Scheduled Calcium/Vitamin D (Os-Molina 500 Plus D), 2 TAB PO DAILY Cyanocobalamin (Vitamin B12), 3,000 MCG PO QAM Furosemide (Lasix), 40 MG PO QPM Furosemide (Lasix), 80 MG PO DAILY Gabapentin (Neurontin), 1-2 TABS PO DAILY Insulin Glargine (Lantus), 30 UNITS SC HS Omeprazole (Prilosec), 20 MG PO BID Sertraline (Zoloft), 25 MG PO DAILY Spironolactone (Aldactone), 100 MG PO QAM Spironolactone (Aldactone), 50 MG PO QPM Tamoxifen Citrate (Tamoxifen Citrate), 10 MG PO DAILY Scheduled PRN Alprazolam (Xanax), 0.25 MG PO TID PRN for SLEEP/ANXIETY Review of Systems ROS per HPI, all other systems reviewed and negative Physical Exam Vital Signs Date Time Temp Pulse Resp B/P (MAP) Pulse Ox O2 Delivery O2 Flow Rate FiO2 09/25/17 12:25 97 Room Air 09/25/17 11:26 82 18 139/78 97 Room Air 09/25/17 10:47 72 09/25/17 10:05 36.7 90 18 121/63 96 Room Air General Appearance: WD/WN, no apparent distress Head: normocephalic, atraumatic Eyes: normal inspection, EOMI, sclerae normal ENT: hearing grossly normal, + pertinent finding (Mucous membranes moist) Neck: supple, no JVD, trachea midline Respiratory/Chest: chest non-tender, lungs clear, normal breath sounds, no respiratory distress Cardiovascular: regular rate, rhythm, no murmur, normal peripheral pulses, + pertinent finding (+3 pitting edema BLE) Abdomen/GI: normal bowel sounds, non tender, no organomegaly, + distended ( Significant ascites) Extremities/Musculoskelatal: normal inspection, no calf tenderness, normal capillary refill Neurologic/Psych: no motor/sensory deficits, alert, normal mood/affect, oriented x 3 Skin: normal color, warm/dry Diagnostics Laboratory Results Results Past 24 Hours Test 09/25/17 10:18 09/25/17 10:32 09/25/17 10:39 Range/Units Urine Color DK YELLOW Urine Appearance CLOUDY CLEAR Urine pH 5.0 4.5-7.5 Urine Specific [place] 1.024 1.000-1.030 Urine Protein NEG NEG Urine Glucose (UA) NEG NEG Urine Ketones TRACE NEG Urine Occult Blood NEG NEG Urine Nitrite POS NEG Urine Bilirubin NEG NEG Urine Urobilinogen POS NEG Urine Leukocyte Esterase SMALL NEG Urine WBC (Auto) 1-5 0-5 /hpf Urine RBC (Auto) 0-4 0-4 /hpf Urine Hyaline Casts (Auto) 0-5 /lpf Urine Epithelial Cells (Auto) >30 0-5 /lpf Urine Bacteria (Auto) NEG NEG Urine Crystals CALCIUM OXALATE NONE PRSENT Urine Pathogenic Casts 0 /lpf White Blood Count 5.07 4.8-10.8 K/uL Red Blood Count 3.49 4.2-5.4 M/uL Hemoglobin 11.5 12.0-16.0 g/dL Hematocrit 35.2 37-47 % Mean Corpuscular Volume 100.9 80-100 fL Mean Corpuscular Hemoglobin 33.0 25-34 pg Mean Corpuscular Hemoglobin Concent 32.7 32-36 g/dl Platelet Count 102 130-400 K/uL Mean Platelet Volume 10.2 7.4-10.4 fL Neutrophils (%) (Auto) 63.9 % Lymphocytes (%) (Auto) 20.9 % Monocytes (%) (Auto) 11.8 % Eosinophils (%) (Auto) 2.6 % Basophils (%) (Auto) 0.6 % Neutrophils # (Auto) 3.24 1.4-6.5 K/uL Lymphocytes # (Auto) 1.06 1.2-3.4 K/uL Monocytes # (Auto) 0.60 0.11-0.59 K/uL Eosinophils # (Auto) 0.13 0-0.5 K/uL Basophils # (Auto) 0.03 0-0.2 K/uL RDW Standard Deviation 56.2 36.4-46.3 fL RDW Coefficient of Variation 15.4 11.5-14.5 % Immature Granulocyte % (Auto) 0.2 % Immature Granulocyte # (Auto) 0.01 0.00-0.02 K/uL Prothrombin Time 13.2 9.0-12.0 SECONDS Prothromb Time International Ratio 1.3 0.9-1.1 Activated Partial Thromboplast Time 23.7 21.0-31.0 SECONDS Partial Thromboplastin Ratio 0.9 Sodium Level 136 136-145 mmol/L Potassium Level 3.7 3.5-5.1 mmol/L Chloride Level 102 98-107 mmol/L Carbon Dioxide Level 27 21-32 mmol/L Anion Gap 7.0 3-11 mmol/L Blood Urea Nitrogen 16 7-18 mg/dl Creatinine 0.90 0.60-1.20 mg/dl Est Creatinine Clear Calc Drug Dose 76.1 ml/min Estimated GFR () 75.1 Estimated GFR (Non- 64.8 BUN/Creatinine Ratio 18.2 10-20 Random Glucose 155 70-99 mg/dl Calcium Level 9.4 8.5-10.1 mg/dl Phosphorus Level 2.4 2.5-4.9 mg/dl Magnesium Level 1.6 1.8-2.4 mg/dl Total Bilirubin 3.7 0.2-1 mg/dl Direct Bilirubin 1.2 0-0.2 mg/dl Aspartate Amino Transf (AST/SGOT) 49 15-37 U/L Alanine Aminotransferase (ALT/SGPT) 32 12-78 U/L Alkaline Phosphatase 116 45-117 U/L Troponin I < 0.015 0-0.045 ng/ml Pro-B-Type Natriuretic Peptide 64 0-900 pg/ml Total Protein 7.6 6.4-8.2 gm/dl Albumin 2.6 3.4-5.0 gm/dl Lipase 132 73-393 U/L Microbiology Results 09/25/17 Blood Culture, Received Pending 09/25/17 Blood Culture, Received Pending 09/25/17 Urine Culture, Received Pending 09/25/17 Urine Culture, Received Pending Impression Assessment and Plan DECOMPENSATED CIRRHOSIS WITH ASCITES -Admit to [facility] -Patient presenting with progressive shortness of breath and 30 pound weight gain over the past 1 month -Currently hemodynamically stable and saturating well on room air -History of LEARY with HCC s/p TACE 10/2016, esophageal varices S/P banding 06/2017 , portal hypertensive gastropathy -Most recent paracentesis 08/13/17 for 5 L -S/P Lasix 80 mg IV in the ED -Case discussed with EARNEST Valverde -planning on paracentesis today, will hold on further diuretics at this time (home dose is Lasix 80 mg a.m., 40 mg p.m.; spironolactone 100 mg a.m., 50 mg p.m.) -Low suspicion for SBP -no leukocytosis or fever; await culture results -Consider resuming propanolol HYPOMAGNESEMIA, HYPOPHOSPHATEMIA -Replace, follow electrolytes DM TYPE II -Hgb A1c 6. -Continue home dose of Lantus and add on NovoLog per protocol while hospitalized DEPRESSION -continue sertraline HISTORY OF BREAST CANCER -Continue tamoxifen DVT PROPHYLAXIS -SCDs due to planned paracentesis CODE STATUS -Patient is a full code as per my discussion with her. DISPOSITION -In my clinical judgment this beneficiary meets acute admission criteria, established by [facility], that includes being hospitalized through two midnights. Attending Note: Patient is a 72 yr female PMH of NAFLD cirrhosis, HCC S/P TACE, Esophageal Varices, Breast Cancer and other problems presents with history of Worsening SOB, weight gain, abdominal distention, dizziness, orthopnea and low grade fever. Patient had abdominal paracentesis in ED and 5 liters of fluid is removed. She also received 80mg IV lasix. Currently she feels tired. Physical Exam: Vitals signs as noted above General Appearance:Obese, no apparent distress Head: normocephalic, Atraumatic Eyes: normal inspection, EOMI, PERRL, +Icteric Neck: supple, Trachea midline Respiratory/Chest: Decreased breath sounds, CTA Cardiovascular: S1, S2, + murmur Abdomen/GI:Soft, + distention, Non tender, Bowel sounds present Extremities/Musculoskelatal:normal inspection, 2+ B/L edema Neurologic/Psych:AAOX3, grossly no focal neurological deficits Skin:normal color,warm, +Spider angioma Assessment and Plan: Volume Overload NAFLD cirrhosis HCC S/P TACE H/O Esophageal Varices R/O SBP S/P Paracentesis MELD score:15 Received Lasix 80 mg IV in the ED Follow up Ascitic fluid studies Plan for ABx if Ascitic fluid studies suggestive of SBP Received Albumin Pre and Post Paracentesis Duplex portal vein: No evidence for portal vein thrombosis FU cultures Plan to resume PO diuretics tomorrow as per GI recommendations Low Salt diet Electrolytes corrected Consider Non selective BB once SBP is ruled out PPI increased to 40mg BID I personally reviewed the record. Patient is interviewed and examined at bedside. Patient's care is coordinated with [facility]. Please refer to the documentation above for details of patient's presentation and for discussion of other issues. Advanced Directives Existing Living Will: No Existing Power of Insurance Verification Rep: No Resuscitation Status VTE Prophylaxis Will order VTE Prophylaxis: Yes
--- NOTE | 2017-09-25 14:41 | DIAGNOSTIC IMAGING REPORT ---
PARACENTESIS ABDOMEN W/IMAGING CLINICAL HISTORY: ascites ascites COMPARISON STUDY: 08/13/2017 PROCEDURE: The risks, benefits, and alternatives to the procedure were discussed with the patient including the risk of bleeding, infection and injury to adjacent structures. The patient agreed to the procedure and informed written consent was obtained. The procedure was performed by Dr. Mccollum following a time out. Following real-time ultrasound localization, the skin was prepped and draped. Following local anesthesia with Xylocaine, the sheath paracentesis needle was inserted and approximately 5 liters of straw-colored fluid was removed by vacuum suction. The patient tolerated the procedure well and no immediate complications were evident. IMPRESSION: Ultrasound-guided paracentesis with removal of 5 liters of ascites. 1 L was submitted to the laboratory for further evaluation. The above report was generated using voice recognition software. It may contain grammatical, syntax or spelling errors. Electronically signed by: Srinivas Mccollum M.D. 09/25/2017 2:40 PM Dictated Date/Time: 09/25/2017 2:39 PM
[2017-09-25] MEDS ORDERED: MAGNESIUM SULFATE 1GM / D5W 100 ML IV SCH (15:00)
[2017-09-25 15:21] VITALS: BP 120/77; PULSE 82; TEMP 36.7; O2SAT 97
[2017-09-25] MEDS: ALBUMIN HUMAN 25% 12.5 GM/50 ML VIAL IV SCH ×2 (15:30→17:10)
[2017-09-25] MEDS: POT PHOSPHATE MONOBASIC W/ SOD TAB PO SCH ×2 (17:14→21:00)
[2017-09-25] MEDS: INSULIN ASPART 100 UNITS/ML 3 ML PEN SC SCH ×2 (18:01→21:06)
[2017-09-25 18:12] VITALS: Ht 157.5 cm; Wt 117.0 kg
[2017-09-25 19:41] VITALS: BP 106/68; PULSE 99; TEMP 36.6; O2SAT 94
[2017-09-25] MEDS: PANTOprazole SOD 40 MG TAB PO SCH (21:00)
[2017-09-25] MEDS: INSULIN GLARGINE SOLOSTAR 100 UNITS/ML 3 ML PEN SC SCH (21:07)
[2017-09-25 23:46] VITALS: BP 123/74; PULSE 96; TEMP 36.6; O2SAT 96
[2017-09-26 04:12] VITALS: BP 107/69; PULSE 94; TEMP 36.8; O2SAT 94
[2017-09-26 07:25] VITALS: BP 111/70; PULSE 101; TEMP 37; O2SAT 94
[2017-09-26] MEDS ORDERED: ALBUMIN HUMAN 25% 12.5 GM/50 ML VIAL IV SCH (08:00)
[2017-09-26] MEDS: CALCIUM 600MG + VIT D 400 IU TAB PO SCH (08:35)
[2017-09-26] MEDS: CYANOCOBALAMIN 500 MCG TAB (VIT B-12) PO SCH (08:36)
[2017-09-26] MEDS: PANTOprazole SOD 40 MG TAB PO SCH ×2 (08:36→19:28)
[2017-09-26] MEDS: GABAPENTIN 800 MG TAB PO SCH (08:37)
[2017-09-26] MEDS: SERTRALINE HCL 50 MG TAB PO SCH (08:37)
[2017-09-26] MEDS: POT PHOSPHATE MONOBASIC W/ SOD TAB PO SCH ×2 (08:37→13:12)
[2017-09-26] MEDS: INSULIN ASPART 100 UNITS/ML 3 ML PEN SC SCH ×4 (08:39→22:18)
[2017-09-26] MEDS: TAMOXIFEN CITRATE 10 MG TAB PO SCH (08:40)
[2017-09-26 09:20] LABS: HEMATOCRIT 30.9 % (37-47); HEMOGLOBIN 10.2 g/dL (12.0-16.0); MEAN PLATELET VOLUME 10.1 fL (7.4-10.4); PLATELET COUNT 100 K/uL (130-400); RED CELL DISTRIBUTION WIDTH CV 15.1 % (11.5-14.5); WHITE BLOOD COUNT 4.16 K/uL (4.8-10.8)
[2017-09-26] MEDS ORDERED: MICONAZOLE NITRATE POWDER 43 GM ONE (09:49)
[2017-09-26 09:50] LABS: CALCIUM 9.2 mg/dl (8.5-10.1); CREATININE 0.77 mg/dl (0.60-1.20); PHOSPHORUS 2.7 mg/dl (2.5-4.9); POTASSIUM 3.6 mmol/L (3.5-5.1)
[2017-09-26] MEDS ORDERED: NURSING DECISION MEDICATION ORDER SCH (10:00)
[2017-09-26] MEDS ORDERED: MICONAZOLE NITRATE POWDER 43 GM EXT PRN (10:00)
[2017-09-26] MEDS ORDERED: FUROSEMIDE 80 MG TAB PO ONE (11:29)
[2017-09-26] MEDS ORDERED: SPIRONOLACTONE 25 MG TAB PO ONE (11:29)
--- NOTE | 2017-09-26 11:52 | Clinical Documentation Query ---
Dr. [facility] : CLINICAL DOCUMENTATION QUERY Per EMR, BMI 50.5 kg/m*m. In order to capture this clinical information, an associated clinical diagnosis must be made by the attending provider. As appropriate, consider documentation as suggested below. Thank you. In your clinical opinion is this patient : ( +) Morbidly obese ( ) Not Agree ( ) Other explanation of clinical findings (No explanation is considered a No Response) ( ) Unable to determine ( ) Need to Discuss (Phone CDS or qliq) (No discussion is considered a No Response) The medical record reflects the following clinical findings, treatment, and risk factors. Clinical Indicators: As above Treatment: Low sodium, diabetes type 2 diet Risk Factors: Caloric intake >>caloric expenditure, inactivity Please clarify and document your clinical opinion in the progress notes and discharge summary. Terms such as "probable", "suspected", "likely", "questionable", "possible", or "still to be ruled out" are acceptable. IF IN AGREEMENT, YOU MUST DOCUMENT ABOVE DIAGNOSTIC STATEMENT IN DAILY PROGRESS NOTES AND DISCHARGE SUMMARY. This document is not part of the patient's record. Thank You, Silverio Metz, RN [phone]
--- NOTE | 2017-09-26 12:14 | Gastroenterology Progress Note ---
Progress Note Date of Service: Sep 26, 2017 Subjective Pt evaluation today including: conversation w/ patient, physical exam, chart review, lab review, review of inpatient medication list Pt feels much better, not having as much abd discomfort. Had 5L ascites fluid removed yesterday. No signs of SBP. SAAG >1.1. Review of Systems Constitutional: No fever, No chills Respiratory: No cough, No shortness of breath Cardiac: + edema, No chest pain Abdomen: No pain, No nausea, No vomiting, No GI bleeding Skin: No rash, No itch, No jaundice Medications Current Inpatient Medications Medications (Trade) Dose Ordered Sig/Samir Route Start Time Stop Time Status Last Admin Dose Admin Acetaminophen (Tylenol Tab) 650 mg Q4H PRN PO 09/25/17 12:45 10/25/17 12:44 Ondansetron HCl (Zofran Inj) 4 mg Q6H PRN IV 09/25/17 12:45 10/25/17 12:44 Alprazolam (Xanax Tab) 0.25 mg TID PRN PO 09/25/17 13:30 10/25/17 13:29 Calcium/Vitamin D (Caltrate Plus Tab) 2 tab DAILY PO 09/26/17 08:00 10/26/17 08:59 09/26/17 08:35 2 TAB Gabapentin (Neurontin Tab) 800 mg DAILY PO 09/26/17 08:00 10/26/17 08:59 09/26/17 08:37 800 MG Insulin Glargine (Lantus Solostar Pen) 30 units HS SC 09/25/17 21:00 10/25/17 20:59 09/25/17 21:07 30 UNITS Sertraline HCl (Zoloft Tab) 25 mg DAILY PO 09/26/17 08:00 10/26/17 08:59 09/26/17 08:37 25 MG Tamoxifen Citrate (Nolvadex Tab) 10 mg DAILY PO 09/26/17 08:00 10/26/17 08:59 09/26/17 08:40 10 MG Cyanocobalamin (Vitamin B-12 Tab) 3,000 mcg QAM PO 09/26/17 08:00 10/26/17 08:59 09/26/17 08:36 3,000 MCG Pantoprazole Sodium (Protonix Tab) 40 mg BID PO 09/25/17 20:00 10/25/17 20:59 09/26/17 08:36 40 MG Insulin Aspart (novoLOG ASPART) SLIDING SCALE If C... ACHS SC 09/25/17 16:00 10/25/17 15:59 09/26/17 08:39 4 UNITS Glucose (Glucose 40% Gel) 15-30 GRAMS 15 GRAMS... UD PRN PO 09/25/17 13:45 10/25/17 13:44 Glucose (Glucose Chew Tab) 4-8 Tablets 4 Tabl... UD PRN PO 09/25/17 13:45 10/25/17 13:44 Dextrose (Dextrose 50% 50ML Syringe) 25-50ML 25ML FOR ... UD PRN IV 09/25/17 13:45 10/25/17 13:44 Glucagon (Glucagon Inj) 1 mg UD PRN SQ 09/25/17 13:45 10/25/17 13:44 Carbohydrates (Carbohydrates For Hypoglycemia) 15-30 GRAMS 15 grams if BSG 54-69... UD PRN PO 09/25/17 13:45 10/25/17 13:44 Miconazole Nitrate (Desenex Powder) 1 appln PRN PRN EXT 09/26/17 10:00 10/26/17 09:59 Furosemide (Lasix Tab) 80 mg BID17 PO 09/26/17 17:00 10/26/17 16:59 UNV Furosemide (Lasix Tab) 80 mg 1129 ONCE PO 09/26/17 11:29 09/26/17 11:30 UNV Spironolactone (Aldactone Tab) 150 mg BID PO 09/26/17 20:00 10/26/17 19:59 UNV Spironolactone (Aldactone Tab) 150 mg 1129 ONCE PO 09/26/17 11:29 09/26/17 11:30 UNV Objective Vital Signs Date Time Temp Pulse Resp B/P (MAP) Pulse Ox O2 Delivery O2 Flow Rate FiO2 09/26/17 08:30 Room Air 09/26/17 07:25 37.0 101 16 111/70 (84) 94 09/26/17 04:12 36.8 94 20 107/69 (82) 94 Room Air 09/26/17 00:30 Room Air 09/25/17 23:46 36.6 96 20 123/74 (90) 96 Room Air 09/25/17 19:41 36.6 99 20 106/68 (81) 94 Room Air 09/25/17 15:21 36.7 82 18 120/77 (91) 97 09/25/17 12:25 97 Room Air Physical Exam General Appearance: WD/WN, no apparent distress, + obese Eyes: normal inspection, PERRL, EOMI Neck: supple, no JVD, trachea midline Respiratory/Chest: no respiratory distress, no accessory muscle use, + decreased breath sounds Cardiovascular: regular rate, rhythm, no gallop, no murmur Abdomen: normal bowel sounds, non tender, + distended (much improved compared to yesterday) Extremities: + pedal edema (+1) Neurologic/Psych: alert, normal mood/affect, oriented x 3 Skin: normal color, no jaundice, no rash Laboratory Results Last 24 Hours Test 09/25/17 14:30 09/25/17 16:44 09/25/17 19:29 09/25/17 20:13 Peritoneal Fluid Color YELLOW Peritoneal Fluid Appearance CLEAR Peritoneal Fluid WBC 116 /uL Peritoneal Fluid RBC < 3000 /uL Peritoneal Fld Mononuclear WBCs (%) 90.8 % Peritoneal Fld Polynuclear WBCs (%) 9.2 % Peritoneal Fluid Total Protein 1.0 g/dl Peritoneal Fluid Albumin < 0.6 g/dl Bedside Glucose 188 mg/dl 161 mg/dl Troponin I < 0.015 ng/ml Test 09/25/17 20:30 09/26/17 07:42 09/26/17 08:46 09/26/17 11:42 Urine Color ORANGE Urine Appearance CLOUDY Urine pH 5.0 Urine Specific [place] 1.020 Urine Protein TRACE Urine Glucose (UA) NEG Urine Ketones TRACE Urine Occult Blood 2+ Urine Nitrite POS Urine Bilirubin NEG Urine Urobilinogen NEG Urine Leukocyte Esterase MODERATE Urine WBC (Auto) >30 /hpf Urine RBC (Auto) 10-30 /hpf Urine Hyaline Casts (Auto) >30 /lpf Urine Epithelial Cells (Auto) 20-30 /lpf Urine Bacteria (Auto) 1+ Urine Crystals CALCIUM OXALATE Urine Pathogenic Casts /lpf Bedside Glucose 123 mg/dl 168 mg/dl White Blood Count 4.16 K/uL Red Blood Count 3.09 M/uL Hemoglobin 10.2 g/dL Hematocrit 30.9 % Mean Corpuscular Volume 100.0 fL Mean Corpuscular Hemoglobin 33.0 pg Mean Corpuscular Hemoglobin Concent 33.0 g/dl RDW Standard Deviation 55.0 fL RDW Coefficient of Variation 15.1 % Platelet Count 100 K/uL Mean Platelet Volume 10.1 fL Sodium Level 137 mmol/L Potassium Level 3.6 mmol/L Chloride Level 103 mmol/L Carbon Dioxide Level 28 mmol/L Anion Gap 6.0 mmol/L Blood Urea Nitrogen 16 mg/dl Creatinine 0.77 mg/dl Est Creatinine Clear Calc Drug Dose 86.1 ml/min Estimated GFR () 90.7 Estimated GFR (Non- 78.2 BUN/Creatinine Ratio 20.4 Random Glucose 116 mg/dl Calcium Level 9.2 mg/dl Phosphorus Level 2.7 mg/dl Magnesium Level 1.8 mg/dl Assessment and Plan Patient is a 72 year old female w 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 She was referred to ED from GI clinic for subjective fever, weight gain 30lbs in 1 month. Labs w/o leukocytosis, H/H stable, LFTs elevation similar to baseline. Mg and Phosphorus low, UA possible UTI. MELD w/o HCC points 15. U/S guided paracentesis done on 09/25, 5L ascites removed. Fluid analysis w/o SBP , SAAG >1.1. Culture pending. Plan - Repeat u/s paracentesis w albumin support tomorrow. I also discussed with pt possibility of having her undergo scheduled routine paracentesis every other weeks should diuretic titration and 2g Na diet alone cannot get ascites volume low. - Duplex portal vein to r/o PVT -> negative for PVT, + portal HTN - Restart diuretics: Lasix 80mg BID, Spironolactone 150mg BID. Monitor renal function and electrolytes - F/U urine, ascites and blood cx. - 2g Na, diabetic and heart healthy diet. - Last EGD 07/20/17 no more varices to band (last banding done on 06/2017), + esophageal ulcer. Once ascites under control can consider restart non selective beta ned (previously held for volume overload by Dr. Jara ). - Protonix 40mg BID. - F/U with [facility] for TACE on 10/01/17 as scheduled. ATTESTATION: I have performed a history and physical examination of this patient and reviewed the electronic record. Specifically on history abdominal discomfort is much improved. I have discussed the case with EARNEST Valverde. The above note reflects my findings, conclusions, and recommendations. Jose M Saha MD
--- NOTE | 2017-09-26 14:47 | Progress Note ---
Internal Med Progress Note Date of Service: Sep 26, 2017. Provider Documentation: SUBJECTIVE: The patient was seen and examined in medical floor She is morbidly obese with cirrhosis and hepatocellular carcinoma status post TACE procedure Status post paracentesis 5 L yesterday Complains to have generalized weakness and some abdominal discomfort No fever ,chills or riders OBJECTIVE: Vital Signs-as noted below Exam: General-generally weak Minimal shortness of breath at rest Eyes-normal ENT-no Neck-supple Lungs-clear to auscultate bilaterally with decreased breath sounds Heart-regular Abdomen-distended, soft, difficult to feel for any organs, bowel sounds present Extremities-2+ edema bilaterally Neuro-alert, awake and oriented 3 Generally weak Lab data as noted below. ASSESSMENT & PLAN: DECOMPENSATED CIRRHOSIS WITH ASCITES with history of hepatocellular carcinoma -Admit to [facility] -Patient presenting with progressive shortness of breath and 30 pound weight gain over the past 1 month -History of LEARY with HCC s/p TACE 10/2016, esophageal varices S/P banding 06/2017 , portal hypertensive gastropathy -Most recent paracentesis 08/13/17 for 5 L -Received Lasix 80 mg IV in the ED -Status post 5 L paracentesis, negative for any SBP -Remains generally weak -Started on oral diuretics with Lasix and spironolactone -Appreciate GI input and recommendation -Repeat paracentesis tomorrow -Advised to keep appointment for [facility] in [place] on the 30th of this month HYPOMAGNESEMIA, HYPOPHOSPHATEMIA -Replace, follow electrolytes -We will monitor electrolytes while in the hospital DM TYPE II -Hgb A1c 6. -Continue home dose of Lantus and add on NovoLog per protocol while hospitalized DEPRESSION -continue sertraline HISTORY OF BREAST CANCER -Continue tamoxifen Morbid obesity No acute issue now DVT PROPHYLAXIS -SCDs due to planned paracentesis CODE STATUS -Patient is a full code as per my discussion with her. DISPOSITION -In my clinical judgment this beneficiary meets acute admission criteria, established by [facility], that includes being hospitalized through two midnights. Vital Signs: Date Time Temp Pulse Resp B/P (MAP) Pulse Ox O2 Delivery O2 Flow Rate FiO2 09/26/17 08:30 Room Air 09/26/17 07:25 37.0 101 16 111/70 (84) 94 09/26/17 04:12 36.8 94 20 107/69 (82) 94 Room Air 09/26/17 00:30 Room Air 09/25/17 23:46 36.6 96 20 123/74 (90) 96 Room Air 09/25/17 19:41 36.6 99 20 106/68 (81) 94 Room Air 09/25/17 15:21 36.7 82 18 120/77 (91) 97 Lab Results: Results Past 24 Hours Test 09/25/17 16:44 09/25/17 19:29 09/25/17 20:13 09/25/17 20:30 Range/Units Bedside Glucose 188 161 70-90 mg/dl Troponin I < 0.015 0-0.045 ng/ml Urine Color ORANGE Urine Appearance CLOUDY CLEAR Urine pH 5.0 4.5-7.5 Urine Specific [place] 1.020 1.000-1.030 Urine Protein TRACE NEG Urine Glucose (UA) NEG NEG Urine Ketones TRACE NEG Urine Occult Blood 2+ NEG Urine Nitrite POS NEG Urine Bilirubin NEG NEG Urine Urobilinogen NEG NEG Urine Leukocyte Esterase MODERATE NEG Urine WBC (Auto) >30 0-5 /hpf Urine RBC (Auto) 10-30 0-4 /hpf Urine Hyaline Casts (Auto) >30 0-5 /lpf Urine Epithelial Cells (Auto) 20-30 0-5 /lpf Urine Bacteria (Auto) 1+ NEG Urine Crystals CALCIUM OXALATE NONE PRSENT Urine Pathogenic Casts 0 /lpf Test 09/26/17 07:42 09/26/17 08:46 09/26/17 11:42 Range/Units Bedside Glucose 123 168 70-90 mg/dl White Blood Count 4.16 4.8-10.8 K/uL Red Blood Count 3.09 4.2-5.4 M/uL Hemoglobin 10.2 12.0-16.0 g/dL Hematocrit 30.9 37-47 % Mean Corpuscular Volume 100.0 80-100 fL Mean Corpuscular Hemoglobin 33.0 25-34 pg Mean Corpuscular Hemoglobin Concent 33.0 32-36 g/dl RDW Standard Deviation 55.0 36.4-46.3 fL RDW Coefficient of Variation 15.1 11.5-14.5 % Platelet Count 100 130-400 K/uL Mean Platelet Volume 10.1 7.4-10.4 fL Sodium Level 137 136-145 mmol/L Potassium Level 3.6 3.5-5.1 mmol/L Chloride Level 103 98-107 mmol/L Carbon Dioxide Level 28 21-32 mmol/L Anion Gap 6.0 3-11 mmol/L Blood Urea Nitrogen 16 7-18 mg/dl Creatinine 0.77 0.60-1.20 mg/dl Est Creatinine Clear Calc Drug Dose 86.1 ml/min Estimated GFR () 90.7 Estimated GFR (Non- 78.2 BUN/Creatinine Ratio 20.4 10-20 Random Glucose 116 70-99 mg/dl Calcium Level 9.2 8.5-10.1 mg/dl Phosphorus Level 2.7 2.5-4.9 mg/dl Magnesium Level 1.8 1.8-2.4 mg/dl
[2017-09-26 15:35] VITALS: BP 104/69; PULSE 93; TEMP 36.3; O2SAT 95
[2017-09-26] MEDS: FUROSEMIDE 80 MG TAB PO SCH (17:27)
[2017-09-26 19:24] VITALS: BP 130/86; PULSE 102; TEMP 36.5; O2SAT 95
[2017-09-26] MEDS: SPIRONOLACTONE 25 MG TAB PO SCH (19:28)
[2017-09-26] MEDS: INSULIN GLARGINE SOLOSTAR 100 UNITS/ML 3 ML PEN SC SCH (22:18)
[2017-09-26 23:00] VITALS: BP 117/78; PULSE 92; TEMP 36.6; O2SAT 94
[2017-09-27] VITALS (8 sets, daily range): BP systolic 99–137; BP diastolic 62–77; PULSE 84–105; TEMP 36.3–36.7; O2SAT 94–96
[2017-09-27 06:06] LABS: HEMATOCRIT 31.4 % (37-47); HEMOGLOBIN 10.3 g/dL (12.0-16.0); MEAN CELL VOLUME 100.3 fL (80-100); MEAN CORPUSCULAR HEMOGLOBIN 32.9 pg (25-34); MEAN CORPUSCULAR HGB CONC 32.8 g/dl (32-36); RED CELL DISTRIBUTION WIDTH CV 15.2 % (11.5-14.5); RED CELL DISTRIBUTION WIDTH SD 55.4 fL (36.4-46.3); WHITE BLOOD COUNT 4.63 K/uL (4.8-10.8)
[2017-09-27 06:08] LABS: MEAN PLATELET VOLUME 9.9 fL (7.4-10.4); PLATELET COUNT 90 K/uL (130-400)
[2017-09-27 06:30] LABS: BASO % 0.2 %; BASO ABS # 0.01 K/uL (0-0.2); EOS % 1.5 %; EOS ABS # 0.07 K/uL (0-0.5); IG# 0.02 K/uL (0.00-0.02); LYMPH % 22.2 %; LYMPH ABS # 1.03 K/uL (1.2-3.4); MONO % 11.9 %; MONO ABS # 0.55 K/uL (0.11-0.59); NEUT % 63.8 %; NEUT ABS # 2.95 K/uL (1.4-6.5)
[2017-09-27 06:38] LABS: CREATININE 0.93 mg/dl (0.60-1.20)
[2017-09-27 06:39] LABS: CALCIUM 8.7 mg/dl (8.5-10.1); POTASSIUM 3.5 mmol/L (3.5-5.1)
[2017-09-27] MEDS: ALBUMIN HUMAN 25% 12.5 GM/50 ML VIAL IV SCH ×4 (07:54→09:38)
[2017-09-27] MEDS: INSULIN ASPART 100 UNITS/ML 3 ML PEN SC SCH ×4 (07:54→21:11)
--- NOTE | 2017-09-27 09:24 | Gastroenterology Progress Note ---
Progress Note Date of Service: Sep 27, 2017 Subjective Pt evaluation today including: conversation w/ patient, physical exam, chart review, lab review, review of inpatient medication list Pt c/o R leg pain due to her neuropathy, "feels like pins and needles". Already on Gabapentin. She denies any abd pain, n/v. Though last night doesn't feel like eating much. Review of Systems Constitutional: No fever, No chills Respiratory: No cough, No shortness of breath Cardiac: No chest pain, No edema Abdomen: No pain, No nausea, No vomiting Musculoskeletal: + see HPI Medications Current Inpatient Medications Medications (Trade) Dose Ordered Sig/Samir Route Start Time Stop Time Status Last Admin Dose Admin Acetaminophen (Tylenol Tab) 650 mg Q4H PRN PO 09/25/17 12:45 10/25/17 12:44 Ondansetron HCl (Zofran Inj) 4 mg Q6H PRN IV 09/25/17 12:45 10/25/17 12:44 09/26/17 17:27 4 MG Alprazolam (Xanax Tab) 0.25 mg TID PRN PO 09/25/17 13:30 10/25/17 13:29 Calcium/Vitamin D (Caltrate Plus Tab) 2 tab DAILY PO 09/26/17 08:00 10/26/17 08:59 09/26/17 08:35 2 TAB Gabapentin (Neurontin Tab) 800 mg DAILY PO 09/26/17 08:00 10/26/17 08:59 09/26/17 08:37 800 MG Insulin Glargine (Lantus Solostar Pen) 30 units HS SC 09/25/17 21:00 10/25/17 20:59 09/26/17 22:18 30 UNITS Sertraline HCl (Zoloft Tab) 25 mg DAILY PO 09/26/17 08:00 10/26/17 08:59 09/26/17 08:37 25 MG Tamoxifen Citrate (Nolvadex Tab) 10 mg DAILY PO 09/26/17 08:00 10/26/17 08:59 09/26/17 08:40 10 MG Cyanocobalamin (Vitamin B-12 Tab) 3,000 mcg QAM PO 09/26/17 08:00 10/26/17 08:59 09/26/17 08:36 3,000 MCG Pantoprazole Sodium (Protonix Tab) 40 mg BID PO 09/25/17 20:00 10/25/17 20:59 09/26/17 19:28 40 MG Insulin Aspart (novoLOG ASPART) SLIDING SCALE If C... ACHS SC 09/25/17 16:00 10/25/17 15:59 09/26/17 22:18 2 UNITS Glucose (Glucose 40% Gel) 15-30 GRAMS 15 GRAMS... UD PRN PO 09/25/17 13:45 10/25/17 13:44 Glucose (Glucose Chew Tab) 4-8 Tablets 4 Tabl... UD PRN PO 09/25/17 13:45 10/25/17 13:44 Dextrose (Dextrose 50% 50ML Syringe) 25-50ML 25ML FOR ... UD PRN IV 09/25/17 13:45 10/25/17 13:44 Glucagon (Glucagon Inj) 1 mg UD PRN SQ 09/25/17 13:45 10/25/17 13:44 Carbohydrates (Carbohydrates For Hypoglycemia) 15-30 GRAMS 15 grams if BSG 54-69... UD PRN PO 09/25/17 13:45 10/25/17 13:44 Miconazole Nitrate (Desenex Powder) 1 appln PRN PRN EXT 09/26/17 10:00 10/26/17 09:59 Furosemide (Lasix Tab) 80 mg BID17 PO 09/26/17 17:00 10/26/17 16:59 09/26/17 17:27 80 MG Spironolactone (Aldactone Tab) 150 mg BID PO 09/26/17 20:00 10/26/17 19:59 09/26/17 19:28 150 MG Albumin Human (Albumin 25%) 12.5 gm Q30M IV 09/27/17 08:00 09/27/17 09:31 09/27/17 08:52 12.5 GM Objective Vital Signs Date Time Temp Pulse Resp B/P (MAP) Pulse Ox O2 Delivery O2 Flow Rate FiO2 09/27/17 07:29 36.7 105 20 130/77 (94) 95 Room Air 09/27/17 03:50 93 20 115/74 (88) 96 Room Air 09/26/17 23:00 36.6 92 18 117/78 (91) 94 7/25/18 20:00 Room Air 09/26/17 19:24 36.5 102 18 130/86 (101) 95 Room Air 09/26/17 15:35 36.3 93 18 104/69 (81) 95 Room Air Physical Exam General Appearance: WD/WN, no apparent distress, + obese Eyes: normal inspection, PERRL, EOMI Neck: supple, no JVD, trachea midline Respiratory/Chest: normal breath sounds, no respiratory distress, no accessory muscle use Cardiovascular: regular rate, rhythm, no gallop, no murmur Abdomen: normal bowel sounds, non tender, soft Extremities: + swelling (+1 on R leg, non pitting mild edema on L leg. ) Neurologic/Psych: alert, normal mood/affect, oriented x 3 Skin: normal color, no jaundice, no rash Laboratory Results Last 24 Hours Test 09/26/17 11:42 09/26/17 16:53 09/26/17 20:53 09/27/17 05:48 Bedside Glucose 168 mg/dl 148 mg/dl 173 mg/dl White Blood Count 4.63 K/uL Red Blood Count 3.13 M/uL Hemoglobin 10.3 g/dL Hematocrit 31.4 % Mean Corpuscular Volume 100.3 fL Mean Corpuscular Hemoglobin 32.9 pg Mean Corpuscular Hemoglobin Concent 32.8 g/dl Platelet Count 90 K/uL Mean Platelet Volume 9.9 fL Neutrophils (%) (Auto) 63.8 % Lymphocytes (%) (Auto) 22.2 % Monocytes (%) (Auto) 11.9 % Eosinophils (%) (Auto) 1.5 % Basophils (%) (Auto) 0.2 % Neutrophils # (Auto) 2.95 K/uL Lymphocytes # (Auto) 1.03 K/uL Monocytes # (Auto) 0.55 K/uL Eosinophils # (Auto) 0.07 K/uL Basophils # (Auto) 0.01 K/uL RDW Standard Deviation 55.4 fL RDW Coefficient of Variation 15.2 % Immature Granulocyte % (Auto) 0.4 % Immature Granulocyte # (Auto) 0.02 K/uL Sodium Level 138 mmol/L Potassium Level 3.5 mmol/L Chloride Level 103 mmol/L Carbon Dioxide Level 27 mmol/L Anion Gap 8.0 mmol/L Blood Urea Nitrogen 14 mg/dl Creatinine 0.93 mg/dl Est Creatinine Clear Calc Drug Dose 71.3 ml/min Estimated GFR () 72.2 Estimated GFR (Non- 62.3 BUN/Creatinine Ratio 14.8 Random Glucose 126 mg/dl Calcium Level 8.7 mg/dl Phosphorus Level 3.0 mg/dl Magnesium Level 1.8 mg/dl Test 09/27/17 07:36 Bedside Glucose 111 mg/dl Assessment and Plan Patient is a 72 year old female w 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 She was referred to ED from GI clinic for subjective fever, weight gain 30lbs in 1 month. Labs w/o leukocytosis, H/H stable, LFTs elevation similar to baseline. Mg and Phosphorus low, UA possible UTI. MELD w/o HCC points 15. U/S guided paracentesis done on 09/25, 5L ascites removed. Fluid analysis w/o SBP , SAAG >1.1. Culture w/o growth. She is scheduled to get another therapuetic paracentesis again today at 10A. Plan - Repeat u/s paracentesis w albumin support today. I also discussed with pt possibility of having her undergo scheduled routine paracentesis every other weeks should diuretic titration and 2g Na diet alone cannot get ascites volume low. - Duplex portal vein to r/o PVT -> negative for PVT, + portal HTN - Restart diuretics: Lasix 80mg BID, Spironolactone 150mg BID. Monitor renal function and electrolytes. May consider dosing diuretics once daily instead of BID if compliance is an issue. - F/U urine (repeated), ascites (-) and blood cx (-). - 2g Na, diabetic and heart healthy diet. - Last EGD 07/20/17 no more varices to band (last banding done on 06/2017), + esophageal ulcer. Once ascites under control can consider restart non selective beta ned (previously held for volume overload by Dr. Jara ). - Protonix 40mg BID. - F/U with [facility] for TACE on 10/01/17 as scheduled. ATTESTATION: I have performed a history and physical examination of this patient and reviewed the electronic record. Specifically on physical examination abdomen is soft and not distended after repeat large volume (5L) paracentesis. I have discussed the case with EARNEST Valverde. The above note reflects my findings , conclusions, and recommendations. Jose M Saha MD
--- NOTE | 2017-09-27 11:09 | DIAGNOSTIC IMAGING REPORT ---
ULTRASOUND GUIDED THERAPEUTIC PARACENTESIS CLINICAL HISTORY: Ascites. PROCEDURE: The risks, benefits, and alternatives to the procedure were discussed with the patient including the risk of bleeding, infection and injury to adjacent structures. The patient agreed to the procedure and informed written consent was obtained. Following real-time ultrasound localization, the skin of the right lower quadrant was prepped and draped. Following local anesthesia with Xylocaine, the sheath paracentesis needle was inserted and approximately 5 liters of straw-colored fluid was removed by vacuum suction. The patient tolerated the procedure well and no immediate complications were evident. IMPRESSION: Ultrasound-guided paracentesis with removal of 5 liters of ascites. Electronically signed by: Ethan Davis M.D. 09/27/2017 11:07 AM Dictated Date/Time: 09/27/2017 11:06 AM
[2017-09-27] MEDS: CYANOCOBALAMIN 500 MCG TAB (VIT B-12) PO SCH (12:02)
[2017-09-27] MEDS: FUROSEMIDE 80 MG TAB PO SCH ×2 (12:02→18:20)
[2017-09-27] MEDS: SERTRALINE HCL 50 MG TAB PO SCH (12:02)
[2017-09-27] MEDS: PANTOprazole SOD 40 MG TAB PO SCH ×2 (12:03→21:04)
[2017-09-27] MEDS: CALCIUM 600MG + VIT D 400 IU TAB PO SCH (12:03)
[2017-09-27] MEDS: GABAPENTIN 800 MG TAB PO SCH (12:03)
[2017-09-27] MEDS: SPIRONOLACTONE 25 MG TAB PO SCH ×2 (12:04→21:05)
[2017-09-27] MEDS: ACETAMINOPHEN 325 MG TAB PO PRN ×2 (12:06→16:16)
[2017-09-27] MEDS: TAMOXIFEN CITRATE 10 MG TAB PO SCH (12:06)
--- NOTE | 2017-09-27 15:32 | Progress Note ---
Internal Med Progress Note Date of Service: Sep 27, 2017. Provider Documentation: SUBJECTIVE: The patient was seen and examined in medical floor She is morbidly obese with cirrhosis and hepatocellular carcinoma status post TACE procedure Status post paracentesis 5 L yesterday Complains to have generalized weakness and some abdominal discomfort No fever ,chills or riders 09/27: Status post 5 L paracentesis today Generally weak, feels a little bit better today denies any Nausea, fever, chills or any pain Likely to be discharged tomorrow OBJECTIVE: Vital Signs-as noted below Exam: General-generally weak Minimal shortness of breath at rest Eyes-normal ENT-no Neck-supple Lungs-clear to auscultate bilaterally with decreased breath sounds Heart-regular Abdomen-distended, soft, difficult to feel for any organs, bowel sounds present Extremities-2+ edema bilaterally Neuro-alert, awake and oriented 3 Generally weak Lab data as noted below. ASSESSMENT & PLAN: DECOMPENSATED CIRRHOSIS WITH ASCITES with history of hepatocellular carcinoma -Admit to [facility] -Patient presenting with progressive shortness of breath and 30 pound weight gain over the past 1 month -History of LEARY with HCC s/p TACE 10/2016, esophageal varices S/P banding 06/2017 , portal hypertensive gastropathy -Most recent paracentesis 08/13/17 for 5 L -Received Lasix 80 mg IV in the ED -Status post 5 L paracentesis, negative for any SBP -Remains generally weak -Started on oral diuretics with Lasix and spironolactone -Appreciate GI input and recommendation -Advised to keep appointment for [facility] in [place] on the of this month -Status post 5 L paracentesis today -Denies any symptoms except ongoing weakness -Likely to be discharged tomorrow HYPOMAGNESEMIA, HYPOPHOSPHATEMIA -Replace, follow electrolytes -We will monitor electrolytes while in the hospital -Electrolytes are corrected and normalized DM TYPE II -Hgb A1c 6. -Continue home dose of Lantus and add on NovoLog per protocol while hospitalized DEPRESSION -continue sertraline HISTORY OF BREAST CANCER -Continue tamoxifen Morbid obesity No acute issue now DVT PROPHYLAXIS -SCDs due to planned paracentesis CODE STATUS -Patient is a full code as per my discussion with her. DISPOSITION Discharged home tomorrow Was advised to keep appointment with wildlife technician at [place] Vital Signs: Date Time Temp Pulse Resp B/P (MAP) Pulse Ox O2 Delivery O2 Flow Rate FiO2 09/27/17 15:03 36.6 97 18 99/63 (75) 95 Room Air 09/27/17 12:04 36.3 84 18 109/67 (81) 95 09/27/17 11:27 36.7 90 18 119/62 (81) 94 Room Air 09/27/17 11:13 36.6 94 20 121/71 (88) 94 Room Air 09/27/17 08:00 Room Air 09/27/17 07:29 36.7 105 20 130/77 (94) 95 Room Air 09/27/17 03:50 93 20 115/74 (88) 96 Room Air 09/26/17 23:00 36.6 92 18 117/78 (91) 94 09/26/17 20:00 Room Air 09/26/17 19:24 36.5 102 18 130/86 (101) 95 Room Air 09/26/17 15:35 36.3 93 18 104/69 (81) 95 Room Air Lab Results: Results Past 24 Hours Test 09/26/17 16:53 09/26/17 20:53 09/27/17 05:48 09/27/17 07:36 Range/Units Bedside Glucose 148 173 111 70-90 mg/dl White Blood Count 4.63 4.8-10.8 K/uL Red Blood Count 3.13 4.2-5.4 M/uL Hemoglobin 10.3 12.0-16.0 g/dL Hematocrit 31.4 37-47 % Mean Corpuscular Volume 100.3 80-100 fL Mean Corpuscular Hemoglobin 32.9 25-34 pg Mean Corpuscular Hemoglobin Concent 32.8 32-36 g/dl Platelet Count 90 130-400 K/uL Mean Platelet Volume 9.9 7.4-10.4 fL Neutrophils (%) (Auto) 63.8 % Lymphocytes (%) (Auto) 22.2 % Monocytes (%) (Auto) 11.9 % Eosinophils (%) (Auto) 1.5 % Basophils (%) (Auto) 0.2 % Neutrophils # (Auto) 2.95 1.4-6.5 K/uL Lymphocytes # (Auto) 1.03 1.2-3.4 K/uL Monocytes # (Auto) 0.55 0.11-0.59 K/uL Eosinophils # (Auto) 0.07 0-0.5 K/uL Basophils # (Auto) 0.01 0-0.2 K/uL RDW Standard Deviation 55.4 36.4-46.3 fL RDW Coefficient of Variation 15.2 11.5-14.5 % Immature Granulocyte % (Auto) 0.4 % Immature Granulocyte # (Auto) 0.02 0.00-0.02 K/uL Sodium Level 138 136-145 mmol/L Potassium Level 3.5 3.5-5.1 mmol/L Chloride Level 103 98-107 mmol/L Carbon Dioxide Level 27 21-32 mmol/L Anion Gap 8.0 3-11 mmol/L Blood Urea Nitrogen 14 7-18 mg/dl Creatinine 0.93 0.60-1.20 mg/dl Est Creatinine Clear Calc Drug Dose 71.3 ml/min Estimated GFR () 72.2 Estimated GFR (Non- 62.3 BUN/Creatinine Ratio 14.8 10-20 Random Glucose 126 70-99 mg/dl Calcium Level 8.7 8.5-10.1 mg/dl Phosphorus Level 3.0 2.5-4.9 mg/dl Magnesium Level 1.8 1.8-2.4 mg/dl Test 09/27/17 11:28 Range/Units Bedside Glucose 104 70-90 mg/dl
[2017-09-27] MEDS: INSULIN GLARGINE SOLOSTAR 100 UNITS/ML 3 ML PEN SC SCH (21:11)
[2017-09-28 04:00] VITALS: BP 100/63; PULSE 88; TEMP 36.3; O2SAT 97
[2017-09-28 07:50] VITALS: BP 126/72; PULSE 89; TEMP 36.8; O2SAT 95
[2017-09-28] MEDS: TAMOXIFEN CITRATE 10 MG TAB PO SCH (08:27)
[2017-09-28] MEDS: PANTOprazole SOD 40 MG TAB PO SCH ×2 (08:27→21:05)
[2017-09-28] MEDS: SPIRONOLACTONE 25 MG TAB PO SCH ×2 (08:28→21:05)
[2017-09-28] MEDS: CYANOCOBALAMIN 500 MCG TAB (VIT B-12) PO SCH (08:29)
[2017-09-28] MEDS: INSULIN ASPART 100 UNITS/ML 3 ML PEN SC SCH ×4 (08:35→21:00)
[2017-09-28] MEDS: CALCIUM 600MG + VIT D 400 IU TAB PO SCH (09:16)
[2017-09-28] MEDS: SERTRALINE HCL 50 MG TAB PO SCH (09:17)
[2017-09-28] MEDS: FUROSEMIDE 80 MG TAB PO SCH ×2 (09:17→18:14)
[2017-09-28] MEDS: GABAPENTIN 800 MG TAB PO SCH (09:18)
--- NOTE | 2017-09-28 12:44 | Progress Note ---
Internal Med Progress Note Date of Service: Sep 28, 2017. Provider Documentation: SUBJECTIVE: The patient was seen and examined in medical floor She is morbidly obese with cirrhosis and hepatocellular carcinoma status post TACE procedure Status post paracentesis 5 L yesterday Complains to have generalized weakness and some abdominal discomfort No fever ,chills or riders 09/27: Status post 5 L paracentesis today Generally weak, feels a little bit better today denies any Nausea, fever, chills or any pain Likely to be discharged tomorrow 09/28 Remains generally weak and Lethargic Complains of some back pain with radiculopathy NO SOB OBJECTIVE: Vital Signs-as noted below Exam: General-generally weak Minimal shortness of breath at rest Eyes-normal ENT-no Neck-supple Lungs-clear to auscultate bilaterally with decreased breath sounds Heart-regular Abdomen-distended, soft, difficult to feel for any organs, bowel sounds present Extremities-2+ edema bilaterally Localized tendermess lower Lumbar area Neuro-alert, awake and oriented 3 Generally weak Lab data as noted below. ASSESSMENT & PLAN: DECOMPENSATED CIRRHOSIS WITH ASCITES with history of hepatocellular carcinoma -Admited to [facility] -Patient presenting with progressive shortness of breath and 30 pound weight gain over the past 1 month -History of LEARY with HCC s/p TACE 10/2016, esophageal varices S/P banding 06/2017 , portal hypertensive gastropathy -Most recent paracentesis 08/13/17 for 5 L -Received Lasix 80 mg IV in the ED -Status post 5 L paracentesis, negative for any SBP -Remains generally weak and Lethargic -Started on oral diuretics with Lasix and spironolactone -Appreciate GI input and recommendation -Advised to keep appointment for TACE in [place] on the of this month -Status post 5 L paracentesis today -Denies any symptoms except ongoing weakness as of today -Repeat US to document amount of Fluid -D/C Schaeffer -Likely discharge home today HYPOMAGNESEMIA, HYPOPHOSPHATEMIA -Replace, follow electrolytes -We will monitor electrolytes while in the hospital -Electrolytes are corrected and normalized -No acute issue DM TYPE II -Hgb A1c . -Continue home dose of Lantus and add on NovoLog per protocol while hospitalized DEPRESSION -continue sertraline HISTORY OF BREAST CANCER -Continue tamoxifen Morbid obesity No acute issue now DVT PROPHYLAXIS -SCDs due to planned paracentesis CODE STATUS -Patient is a full code as per my discussion with her. DISPOSITION Discharged home tomorrow Was advised to keep appointment with telesales specialist at [place] Likely to go home today if US is reasonable Vital Signs: Date Time Temp Pulse Resp B/P (MAP) Pulse Ox O2 Delivery O2 Flow Rate FiO2 09/28/17 08:00 Room Air 09/28/17 07:50 36.8 89 20 126/72 (90) 95 Room Air 09/28/17 04:00 36.3 88 18 100/63 (75) 97 Room Air 09/27/17 23:09 36.6 94 18 137/77 (97) 94 Room Air 09/27/17 20:00 Room Air 09/27/17 16:30 95 Room Air 09/27/17 15:03 36.6 97 18 99/63 (75) 95 Room Air Lab Results: Results Past 24 Hours Test 09/27/17 16:35 09/27/17 20:05 09/28/17 07:42 09/28/17 11:55 Range/Units Bedside Glucose 120 163 117 214 70-90 mg/dl
--- NOTE | 2017-09-28 13:16 | Gastroenterology Progress Note ---
Progress Note Date of Service: Sep 28, 2017 Subjective Pt evaluation today including: conversation w/ patient, physical exam, chart review, lab review, review of inpatient medication list Pt c/o back pain. Denies abd pain, n/v. She feels her abd is getting bigger than yesterday. Though when weighed this AM down to 260lbs which is usually her weight whenever her fluid overload is controlled. Review of Systems Constitutional: No fever, No chills Respiratory: No cough, No shortness of breath Cardiac: No chest pain Abdomen: No pain, No nausea, No vomiting Musculoskeletal: + see HPI Medications Current Inpatient Medications Medications (Trade) Dose Ordered Sig/Samir Route Start Time Stop Time Status Last Admin Dose Admin Acetaminophen (Tylenol Tab) 650 mg Q4H PRN PO 09/25/17 12:45 10/25/17 12:44 09/27/17 16:16 650 MG Ondansetron HCl (Zofran Inj) 4 mg Q6H PRN IV 09/25/17 12:45 10/25/17 12:44 09/26/17 17:27 4 MG Alprazolam (Xanax Tab) 0.25 mg TID PRN PO 09/25/17 13:30 10/25/17 13:29 Calcium/Vitamin D (Caltrate Plus Tab) 2 tab DAILY PO 09/26/17 08:00 10/26/17 08:59 09/28/17 09:16 2 TAB Gabapentin (Neurontin Tab) 800 mg DAILY PO 09/26/17 08:00 10/26/17 08:59 09/28/17 09:18 800 MG Insulin Glargine (Lantus Solostar Pen) 30 units HS SC 09/25/17 21:00 10/25/17 20:59 09/27/17 21:11 30 UNITS Sertraline HCl (Zoloft Tab) 25 mg DAILY PO 09/26/17 08:00 10/26/17 08:59 09/28/17 09:17 25 MG Tamoxifen Citrate (Nolvadex Tab) 10 mg DAILY PO 09/26/17 08:00 10/26/17 08:59 09/28/17 08:27 10 MG Cyanocobalamin (Vitamin B-12 Tab) 3,000 mcg QAM PO 09/26/17 08:00 8/24/18 08:59 09/28/17 08:29 3,000 MCG Pantoprazole Sodium (Protonix Tab) 40 mg BID PO 09/25/17 20:00 10/25/17 20:59 09/28/17 08:27 40 MG Insulin Aspart (novoLOG ASPART) SLIDING SCALE If C... ACHS SC 09/25/17 16:00 10/25/17 15:59 09/28/17 13:01 15 UNITS Glucose (Glucose 40% Gel) 15-30 GRAMS 15 GRAMS... UD PRN PO 09/25/17 13:45 10/25/17 13:44 Glucose (Glucose Chew Tab) 4-8 Tablets 4 Tabl... UD PRN PO 09/25/17 13:45 10/25/17 13:44 Dextrose (Dextrose 50% 50ML Syringe) 25-50ML 25ML FOR ... UD PRN IV 09/25/17 13:45 10/25/17 13:44 Glucagon (Glucagon Inj) 1 mg UD PRN SQ 09/25/17 13:45 10/25/17 13:44 Carbohydrates (Carbohydrates For Hypoglycemia) 15-30 GRAMS 15 grams if BSG 54-69... UD PRN PO 09/25/17 13:45 10/25/17 13:44 Miconazole Nitrate (Desenex Powder) 1 appln PRN PRN EXT 09/26/17 10:00 10/26/17 09:59 Furosemide (Lasix Tab) 80 mg BID17 PO 09/26/17 17:00 10/26/17 16:59 09/28/17 09:17 80 MG Spironolactone (Aldactone Tab) 150 mg BID PO 09/26/17 20:00 10/26/17 19:59 09/28/17 08:28 150 MG Objective Vital Signs Date Time Temp Pulse Resp B/P (MAP) Pulse Ox O2 Delivery O2 Flow Rate FiO2 09/28/17 08:00 Room Air 09/28/17 07:50 36.8 89 20 126/72 (90) 95 Room Air 09/28/17 04:00 36.3 88 18 100/63 (75) 97 Room Air 09/27/17 23:09 36.6 94 18 137/77 (97) 94 Room Air 09/27/17 20:00 Room Air 09/27/17 16:30 95 Room Air 09/27/17 15:03 36.6 97 18 99/63 (75) 95 Room Air Physical Exam General Appearance: WD/WN, no apparent distress, + obese Eyes: normal inspection, PERRL, EOMI Neck: supple, no JVD, trachea midline Respiratory/Chest: normal breath sounds, no respiratory distress, no accessory muscle use Cardiovascular: regular rate, rhythm, no gallop, no murmur Abdomen: normal bowel sounds, non tender, + distended Extremities: + pedal edema (+1 pitting ) Neurologic/Psych: alert, normal mood/affect, oriented x 3 Skin: normal color, no jaundice, no rash Laboratory Results Last 24 Hours Test 09/27/17 16:35 09/27/17 20:05 09/28/17 07:42 09/28/17 11:55 Bedside Glucose 120 mg/dl 163 mg/dl 117 mg/dl 214 mg/dl Assessment and Plan Patient is a 72 year old female w 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 She was referred to ED from GI clinic for subjective fever, weight gain 30lbs in 1 month. Labs w/o leukocytosis, H/H stable, LFTs elevation similar to baseline. Mg and Phosphorus low, UA possible UTI. MELD w/o HCC points 15. U/S guided paracentesis done on 09/25, 5L ascites removed. Fluid analysis w/o SBP , SAAG >1.1. Culture w/o growth. Repeat paracentesis w 5L ascites removal and Albumin 25% support done on 09/27. Her weight is down but she feels abd is bigger than yesterday. Plan - U/S limited for ascites check today. If still with large amt of ascites will order repeat paracentesis. I also discussed with pt possibility of having her undergo scheduled routine paracentesis every other weeks should diuretic titration and 2g Na diet alone cannot get ascites volume low. - Duplex portal vein to r/o PVT -> negative for PVT, + portal HTN - Diuretics: Lasix 80mg BID, Spironolactone 150mg BID. Monitor renal function and electrolytes. May consider dosing diuretics once daily instead of BID if compliance is an issue. - F/U urine (repeated), ascites (-) and blood cx (-). - 2g Na, diabetic and heart healthy diet. - Last EGD 07/20/17 no more varices to band (last banding done on 06/2017), + esophageal ulcer. Once ascites under control can consider restart non selective beta ned (previously held for volume overload by Dr. Jara ). - Protonix 40mg BID. - F/U with [facility] for TACE on 10/01/17 as scheduled. Addendum: u/s abd w small to moderate ascites, significantly improved to prior. No plans to repeat paracentesis for now. Ok to keep pt one more night, but should be ready for DC tomorrow. ATTESTATION: I have performed a history and physical examination of this patient and reviewed the electronic record. Specifically on physical examination abdomen is soft and non tender. I have discussed my findings with EARNEST Valverde. The above note reflects my findings, conclusions and recommendations. Jose M Saha MD
[2017-09-28 15:19] VITALS: BP 116/66; PULSE 97; TEMP 36.9; O2SAT 95
--- NOTE | 2017-09-28 15:58 | DIAGNOSTIC IMAGING REPORT ---
LIMITED ABDOMINAL ULTRASOUND FOR ASCITES EVALUATION CLINICAL HISTORY: Abdominal distention COMPARISON STUDY: 09/27/2017 FINDINGS: A four-quadrant survey was performed. There is a deity-cy-jwbhfrzu amount of ascites present. The volume is insufficient to warrant a therapeutic paracentesis at this time. IMPRESSION: Small to moderate volume of ascites, significantly diminished from the prior study dated 09/27/2017 Electronically signed by: Rj Mcarthur M.D. 09/28/2017 3:57 PM Dictated Date/Time: 09/28/2017 3:55 PM
[2017-09-28 19:19] VITALS: BP 110/70; PULSE 96; TEMP 36.9; O2SAT 95
[2017-09-28 20:00] VITALS: O2SAT 95
[2017-09-28] MEDS: INSULIN GLARGINE SOLOSTAR 100 UNITS/ML 3 ML PEN SC SCH (21:06)
[2017-09-28 23:14] VITALS: BP 117/71; PULSE 91; TEMP 36.5; O2SAT 94
[2017-09-29 04:02] VITALS: BP 115/73; PULSE 87; TEMP 36.8; O2SAT 96
[2017-09-29 08:10] VITALS: BP 124/86; PULSE 103; TEMP 36.7; O2SAT 95
[2017-09-29] MEDS: INSULIN ASPART 100 UNITS/ML 3 ML PEN SC SCH ×2 (09:02→12:42)
[2017-09-29] MEDS: CALCIUM 600MG + VIT D 400 IU TAB PO SCH (09:03)
[2017-09-29] MEDS: CYANOCOBALAMIN 500 MCG TAB (VIT B-12) PO SCH (09:04)
[2017-09-29] MEDS: SERTRALINE HCL 50 MG TAB PO SCH (09:04)
[2017-09-29] MEDS: SPIRONOLACTONE 25 MG TAB PO SCH (09:05)
[2017-09-29] MEDS: GABAPENTIN 800 MG TAB PO SCH (09:07)
[2017-09-29] MEDS: TAMOXIFEN CITRATE 10 MG TAB PO SCH (09:07)
[2017-09-29] MEDS: FUROSEMIDE 80 MG TAB PO SCH (09:07)
[2017-09-29] MEDS: PANTOprazole SOD 40 MG TAB PO SCH (09:08)
[2017-09-29 11:44] VITALS: BP 128/82; PULSE 91; TEMP 36.6; O2SAT 97
--- NOTE | 2017-09-29 13:24 | Progress Note ---
Internal Med Progress Note Date of Service: Sep 29, 2017. Provider Documentation: SUBJECTIVE: The patient was seen and examined in medical floor She is morbidly obese with cirrhosis and hepatocellular carcinoma status post TACE procedure Status post paracentesis 5 L yesterday Complains to have generalized weakness and some abdominal discomfort No fever ,chills or riders 09/27: Status post 5 L paracentesis today Generally weak, feels a little bit better today denies any Nausea, fever, chills or any pain Likely to be discharged tomorrow 09/28 Remains generally weak and Lethargic Complains of some back pain with radiculopathy NO SOB 09/29 Feels a lot better today Abdomen is less distended and removed her bowel Denies any other symptoms Ready to go home OBJECTIVE: Vital Signs-as noted below Exam: General-generally weak Minimal shortness of breath at rest Eyes-normal ENT-no Neck-supple Lungs-clear to auscultate bilaterally with decreased breath sounds Heart-regular Abdomen-distended, soft, difficult to feel for any organs, bowel sounds present Extremities-2+ edema bilaterally Localized tenderness lower Lumbar area Neuro-alert, awake and oriented 3 Generally weak Lab data as noted below. ASSESSMENT & PLAN: DECOMPENSATED CIRRHOSIS WITH ASCITES with history of hepatocellular carcinoma -Admited to [facility] -Patient presenting with progressive shortness of breath and 30 pound weight gain over the past 1 month -History of LEARY with HCC s/p TACE 10/2016, esophageal varices S/P banding 06/2017 , portal hypertensive gastropathy -Most recent paracentesis 08/13/17 for 5 L -Received Lasix 80 mg IV in the ED -Status post 5 L paracentesis, negative for any SBP -Remains generally weak and Lethargic -Started on oral diuretics with Lasix and spironolactone -Appreciate GI input and recommendation -Advised to keep appointment for TACE in [place] on the of this month -Status post 5 L paracentesis today -Denies any symptoms except ongoing weakness as of today -Repeat US to document amount of Fluid -D/C Schaeffer-making out urine -Repeat ultrasound did not show any much fluid accumulation -We will discharge home today with oral diuretics HYPOMAGNESEMIA, HYPOPHOSPHATEMIA -Replace, follow electrolytes -We will monitor electrolytes while in the hospital -Electrolytes are corrected and normalized -No acute issue -Will be monitored in outpatient DM TYPE II -Hgb A1c 6. -Continue home dose of Lantus and add on NovoLog per protocol while hospitalized DEPRESSION -continue sertraline HISTORY OF BREAST CANCER -Continue tamoxifen Morbid obesity No acute issue now DVT PROPHYLAXIS -SCDs due to planned paracentesis CODE STATUS -Patient is a full code as per my discussion with her. DISPOSITION Discharged home tomorrow Was advised to keep appointment with communications lead at [place] Discharge today Vital Signs: Date Time Temp Pulse Resp B/P (MAP) Pulse Ox O2 Delivery O2 Flow Rate FiO2 09/29/17 11:44 36.6 91 17 128/82 (97) 97 Room Air 09/29/17 09:20 Room Air 09/29/17 08:10 36.7 103 16 124/86 (99) 95 Room Air 09/29/17 04:02 36.8 87 18 115/73 (87) 96 Room Air 09/29/17 00:00 Room Air 09/28/17 23:14 36.5 91 18 117/71 (86) 94 CPAP 09/28/17 20:00 95 Room Air CPAP 09/28/17 19:19 36.9 96 18 110/70 (83) 95 Room Air 09/28/17 15:19 36.9 97 18 116/66 (83) 95 Room Air Lab Results: Results Past 24 Hours Test 09/28/17 17:00 09/28/17 20:16 09/29/17 07:49 09/29/17 12:06 Range/Units Bedside Glucose 127 150 122 156 70-90 mg/dl
[2017-09-29] MEDS ORDERED: FURO80TA63 PO (13:27)
[2017-09-29] MEDS ORDERED: SPIR100T PO (13:27)
--- NOTE | 2017-09-29 13:32 | Discharge Instructions ---
Discharge Instructions Date of Service Sep 29, 2017. Admission Reason for Admission: Ascites Discharge Discharge Diagnosis / Problem: Ascites secondary to Cirrosis-Requires periodic paracentesis,HCC Discharge Goals Goal(s): Prevent Disease Progression Activity Recommendations Activity Limitations: resume your previous activity . Instructions / Follow-Up Instructions / Follow-Up Dr Minaya on 10/03/17 at 10:05 AM.Please have electrolytes checked..Please keep appointment at [place].Take precaution to avoid fall Current Hospital Diet Patient's current hospital diet: Low Sodium Diet (2gm Na), Diabetes Type 2 Diet Discharge Diet Recommended Diet: Low Sodium Diet (2gm Na), Diabetes Type 2 Diet Pending Studies Studies pending at discharge: no Medical Emergencies . Who to Call and When: Medical Emergencies: If at any time you feel your situation is an emergency, please call 911 immediately. . Non-Emergent Contact Non-Emergency issues call your: Primary Care Provider . Past History Medical & Surgical History: (1) Ascites (2) DM type 2 (diabetes mellitus, type 2) (3) HCC (hepatocellular carcinoma) (4) LEARY (nonalcoholic steatohepatitis) (5) Esophageal varices (6) Portal hypertension (7) HTN (hypertension) (8) Depression (9) Breast cancer (10) Hx of cholecystectomy (11) S/P DONNELL-BSO (12) H/O lumpectomy . "Provider Documentation" section prepared by Michele Peralta. .
[2017-09-29 14:26] VITALS: BP 128/82; PULSE 91; TEMP 36.6; O2SAT 97
--- NOTE | 2017-09-30 08:35 | Discharge Summary ---
Discharge Summary Date of Service Sep 30, 2017. Discharge Summary Admission Date: Sep 25, 2017 at 12:42 Discharge Date: Sep 29, 2017 Discharge Disposition: Home Principal Diagnosis: Ascites secondary to Cirrhosis-Requires periodic paracentesis,HCC Secondary Diagnoses/Problems: Please see H&P and Hospital progress note Procedures: ParacentesisX2 Consultations: GI Medication Reconciliation Changed Medications: Furosemide (Lasix) 80 Mg Tab 80 MG PO BID for 30 Days, #60 TAB (Changed from: DAILY) Spironolactone (Aldactone) 100 Mg Tab 150 MG PO BID for 30 Days, #90 TAB (Changed from: 100 MG; QAM) Continued Medications: Alprazolam (Xanax) 0.5 Mg Tab 0.25 MG PO TID PRN for SLEEP/ANXIETY, TAB Calcium/Vitamin D (Os-Molina 500 Plus D) Tab 2 TAB PO DAILY, TAB TAKES WITH LARGEST MEAL OF DAY Cyanocobalamin (Vitamin B12) 1,000 Mcg Tab 3000 MCG PO QAM Gabapentin (Neurontin) 800 Mg Tab 1-2 TABS PO DAILY Insulin Glargine (Lantus) 100 Unit/Ml Inj 30 UNITS SC HS, VIAL Omeprazole (Prilosec) 20 Mg Cap 20 MG PO BID, CAP Sertraline (Zoloft) 25 Mg Tab 25 MG PO DAILY, TAB Tamoxifen Citrate (Tamoxifen Citrate) 10 Mg Tab 10 MG PO DAILY, TAB Discontinued Medications: Furosemide (Lasix) 40 Mg Tab 40 MG PO QPM Spironolactone (Aldactone) 50 Mg Tab 50 MG PO QPM, TAB Admission Information HPI (per Admitting provider): 72-year-old female who presents the ED by referral of outpatient GI provider for shortness of breath and weight gain. Patient has history of LEARY. Recently underwent 5 L paracentesis on 08/13/17. Patient reports a gradual weight gain since that time. She reports gaining 30 pounds over the past 1 month. She has had increasing abdominal distention and worsening shortness of breath. She reports feeling short of breath at rest and is unable to lie flat. She has been sleeping in a chair. She was reports feeling lightheaded and dizzy with standing. No syncopal events. She denies chest pain. She reports abdominal pressure but denies any pain or tenderness. She reports chills which is chronic for her. She had a low-grade fever while at the GI office today at 99. No nausea, vomiting, diarrhea, bright red bleeding per rectum, or dark tarry stools. She reports urinary hesitancy but denies dysuria or foul- smelling urine. She reports medication and low-sodium diet compliance. in the ED, patient is hemodynamically stable. Labs are unremarkable. Exam is notable for significant ascites. Patient was given Lasix 80 mg IV. Physical Exam (per Admitting): General Appearance: WD/WN, no apparent distress Head: normocephalic, atraumatic Eyes: normal inspection, EOMI, sclerae normal ENT: hearing grossly normal, + pertinent finding (Mucous membranes moist) Neck: supple, no JVD, trachea midline Respiratory/Chest: chest non-tender, lungs clear, normal breath sounds, no respiratory distress Cardiovascular: regular rate, rhythm, no murmur, normal peripheral pulses, + pertinent finding (+3 pitting edema BLE) Abdomen/GI: normal bowel sounds, non tender, no organomegaly, + distended ( Significant ascites) Extremities/Musculoskelatal: normal inspection, no calf tenderness, normal capillary refill Neurologic/Psych: no motor/sensory deficits, alert, normal mood/affect, oriented x 3 Skin: normal color, warm/dry Hospital Course DECOMPENSATED CIRRHOSIS WITH ASCITES with history of hepatocellular carcinoma -Admited to [facility] -Patient presenting with progressive shortness of breath and 30 pound weight gain over the past 1 month -History of LEARY with HCC s/p TACE 10/2016, esophageal varices S/P banding 06/2017 , portal hypertensive gastropathy -Most recent paracentesis 08/13/17 for 5 L -Received Lasix 80 mg IV in the ED -Status post 5 L paracentesis, negative for any SBP -Remains generally weak and Lethargic -Started on oral diuretics with Lasix and spironolactone -Appreciate GI input and recommendation -Advised to keep appointment for TACE in [place] on the of this month -Status post 5 L paracentesis today -Denies any symptoms except ongoing weakness as of today -Repeat US to document amount of Fluid -D/C Schaeffer-making out urine -Repeat ultrasound did not show any much fluid accumulation -We will discharge home today with oral diuretics HYPOMAGNESEMIA, HYPOPHOSPHATEMIA -Replace, follow electrolytes -We will monitor electrolytes while in the hospital -Electrolytes are corrected and normalized -No acute issue -Will be monitored in outpatient DM TYPE II -Hgb A1c 6. -Continue home dose of Lantus and add on NovoLog per protocol while hospitalized DEPRESSION -continue sertraline HISTORY OF BREAST CANCER -Continue tamoxifen Morbid obesity No acute issue now DVT PROPHYLAXIS -SCDs due to planned paracentesis CODE STATUS -Patient is a full code as per my discussion with her. DISPOSITION Discharged home tomorrow Was advised to keep appointment with life cycle assessment analyst at [place] Discharge today Total time spent on discharge = 35 minutes This includes examination of the patient, discharge planning, medication reconciliation, and communication with other providers. Discharge Instructions Date of Service Sep 29, 2017. Admission Reason for Admission: Ascites Discharge Discharge Diagnosis / Problem: Ascites secondary to Cirrosis-Requires periodic paracentesis,HCC Discharge Goals Goal(s): Prevent Disease Progression Activity Recommendations Activity Limitations: resume your previous activity . Instructions / Follow-Up Instructions / Follow-Up Dr Minaya on 10/03/17 at 10:05 AM.Please have electrolytes checked..Please keep appointment at [place].Take precaution to avoid fall Current Hospital Diet Patient's current hospital diet: Low Sodium Diet (2gm Na), Diabetes Type 2 Diet Discharge Diet Recommended Diet: Low Sodium Diet (2gm Na), Diabetes Type 2 Diet Pending Studies Studies pending at discharge: no Medical Emergencies . Who to Call and When: Medical Emergencies: If at any time you feel your situation is an emergency, please call 911 immediately. . Non-Emergent Contact Non-Emergency issues call your: Primary Care Provider . Past History Medical & Surgical History: (1) Ascites (2) DM type 2 (diabetes mellitus, type 2) (3) HCC (hepatocellular carcinoma) (4) LEARY (nonalcoholic steatohepatitis) (5) Esophageal varices (6) Portal hypertension (7) HTN (hypertension) (8) Depression (9) Breast cancer (10) Hx of cholecystectomy (11) S/P DONNELL-BSO (12) H/O lumpectomy . "Provider Documentation" section prepared by iMchele Peralta. . <Electronically signed by Michele Peralta M.D.> Additional Copies To Pk Minaya, D.O.
== END 2017-09-29 15:53 | disposition home or self-care (01) | DRG 433 ==
LOC: C.EDB 09:58 → C.4E 12:42 → EDBEDREQSVC 12:51 → EDBEDREQ 12:52 → EDBEDREQSVC 12:55 → ENRESERV 13:25
PROVIDERS: ADMIT Internal Medicine; ATTEND Internal Medicine
PROC: 0W9G3ZZ Drainage of Peritoneal Cavity, Percutaneous Approach (ICD-10-PCS; principal; 2017-09-25)
PROC: 0T9B70Z Drainage of Bladder with Drainage Device, Via Natural or Artificial Opening (ICD-10-PCS; 2017-09-25)
PROC: 0W9G3ZZ Drainage of Peritoneal Cavity, Percutaneous Approach (ICD-10-PCS; 2017-09-27)
DX: K74.60 Unspecified cirrhosis of liver (principal); R18.8 Other ascites; C22.0 Liver cell carcinoma; E83.42 Hypomagnesemia; E83.39 Other disorders of phosphorus metabolism; E11.9 Type 2 diabetes mellitus without complications; F32.9 Major depressive disorder, single episode, unspecified; Z85.3 Personal history of malignant neoplasm of breast; Z79.4 Long term (current) use of insulin; Z79.810 Long term (current) use of selective estrogen receptor modulators (SERMs); Z79.899 Other long term (current) drug therapy; Z88.1 Allergy status to other antibiotic agents; Z88.8 Allergy status to other drugs, medicaments and biological substances; Z91.048 Other nonmedicinal substance allergy status

== ENCOUNTER → 2017-10-29 | Outpatient (CLI) | payer OTHER, BC ==
[~2017-10-29] MED LIST changes: -ACYC-57 PO; -FRS/40 PO; +FURO80TA63 PO; +GADOXETATE DISODIUM (NON-WT BASED PROCEDURE) IV PRN; +INSDGI SC; +SERT25TA PO; -SPIR50TA2 PO; +[UNRECOGNIZED DRUG - OTHER]
--- NOTE | 2017-10-29 14:01 | DIAGNOSTIC IMAGING REPORT ---
MRI LIVER COMBO CLINICAL HISTORY: MALIGNANT NEOPLASM OF LIVER HISTORY OF ENDOMETRIAL AND BREAST CARCINOMA. TECHNIQUE: Imaging was performed prior to and following IV contrast injection. COMPARISON STUDY: MRI the liver dated 07/20/2017 FINDINGS: Imaging was performed in the axial and coronal planes, before and after the administration of 10 cc of intravenous Eovist. There is moderate ascites. There is hepatic cirrhosis. The spleen is enlarged measuring 14 cm. Subcentimeter T2 bright renal lesions are consistent with cysts. In addition there is a minimally complex 15 mm cystic lower pole left renal lesion. No pancreatic masses are visualized. No adrenal masses are visualized. There is no evidence of abdominal aortic aneurysm. There is no ductal dilatation. There is an 9 mm arterial phase enhancing lesion within the right lobe of the liver which demonstrates rapid washout. This is not visualized on 20 minute delayed images imaging. This lesion demonstrates mild increased signal on diffusion-weighted imaging. This lesion is not visualized on T2-weighted images. This lesion is indeterminate and bears close follow-up on subsequent studies. IMPRESSION: 1. Hepatic cirrhosis and splenomegaly 2. Indeterminate 9 mm arterially enhancing lesion within the right hepatic lobe. (LI-RADS 3). This lesion was not visualized on the preceding study. 6 month follow-up imaging is recommended. 3. Moderate ascites 4. Stable 15 mm complex lower pole left renal cyst Electronically signed by: Rj Mcarthur M.D. 10/29/2017 2:00 PM Dictated Date/Time: 10/29/2017 1:37 PM
== END | disposition home or self-care (01) ==
LOC: C.MRI 11:16
PROVIDERS: ATTEND Internal Medicine Gastroenterology
DX: C22.9 Malignant neoplasm of liver, not specified as primary or secondary (principal); K74.60 Unspecified cirrhosis of liver; R16.1 Splenomegaly, not elsewhere classified; N28.1 Cyst of kidney, acquired